=== PATIENT | male | born 1960 | race Two or more races ===

== ENCOUNTER 2020-08-28 08:12 | Emergency (ER) | payer MEDICARE, MEDICAID, SELFPAY ==
[2020-08-28 08:27] VITALS: BP 168/95; PULSE 68; RESP 14; TEMP 36.6; O2SAT 96; BMI 21.6
--- NOTE | 2020-08-28 08:40 | CT_ITS ---
EXAMINATION: CT HEAD WITHOUT CONTRAST CT CERVICAL SPINE WITHOUT CONTRAST CLINICAL INFORMATION: Fall. Pain. COMPARISON: None. TECHNIQUE: Multidetector CT imaging of the head and cervical spine was performed without the use of intravenous contrast. Multiplanar reformats are reviewed. DLP: 1031 mGy-cm. FINDINGS: There is no evidence of acute intracranial hemorrhage or territorial infarction. No abnormal mass effect or midline shift is seen. Lezama to white matter differentiation is well preserved. No extra-axial fluid collections are identified. The ventricles are normal in size. There is no abnormal attenuation within the brain parenchyma. Mild left parietal scalp swelling. Minimal secretions present within the mastoid air cells bilaterally. Atlantooccipital alignment is maintained. No acute fracture or subluxation. Vertebral body heights maintained. 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 The cervicomedullary junction and spinal cord are grossly unremarkable. The paraspinal soft tissues are unremarkable. The imaged lung apices are clear CT/CT head/brain wo con IMPRESSION: No acute intracranial pathology. No cervical spine fracture or subluxation.
--- NOTE | 2020-08-28 08:40 | CT_ITS ---
EXAMINATION: CT HEAD WITHOUT CONTRAST CT CERVICAL SPINE WITHOUT CONTRAST CLINICAL INFORMATION: Fall. Pain. COMPARISON: None. TECHNIQUE: Multidetector CT imaging of the head and cervical spine was performed without the use of intravenous contrast. Multiplanar reformats are reviewed. DLP: 1031 mGy-cm. FINDINGS: There is no evidence of acute intracranial hemorrhage or territorial infarction. No abnormal mass effect or midline shift is seen. Lezama to white matter differentiation is well preserved. No extra-axial fluid collections are identified. The ventricles are normal in size. There is no abnormal attenuation within the brain parenchyma. Mild left parietal scalp swelling. Minimal secretions present within the mastoid air cells bilaterally. Atlantooccipital alignment is maintained. No acute fracture or subluxation. Vertebral body heights maintained. 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 The cervicomedullary junction and spinal cord are grossly unremarkable. The paraspinal soft tissues are unremarkable. The imaged lung apices are clear CT/CT cervical spine wo con IMPRESSION: No acute intracranial pathology. No cervical spine fracture or subluxation.
--- NOTE | 2020-08-28 08:52 | ED.FALL ---
HPI - Fall General Chief Complaint: Fall Stated Complaint: FALL HEAD INJ Time Seen by Provider: 08/28/20 08:32 Source: patient Mode of arrival: ambulatory Limitations: no limitations History of Present Illness HPI Narrative: Slip and fall yesterday on the ice. Fall backwards hitting his head. ?brief LOC. Rouses on own and able to get up. Last night mild SERRANO. This morning continued SERRANO, dizziness x2 with working. No photophobia, nausea, vomiting. Some neck and back pain. No chest/abdominal pain. MD complaint: fall Onset (ago): day(s) (yesterday ) Fall from: standing Fall witnessed: no Place fall occurred: home Loss of consciousness: yes, seconds Length of LOC: second(s) Prolonged down time: no Symptoms prior to fall: none Context: tripped/slipped Location of injury: head, neck and back Severity: mild Quality: sharp Associated symptoms (after fall): headache and neck pain Related Data Allergies Allergy/AdvReac Type Severity Reaction Status Date / Time No Known Allergies Allergy Unverified 07/14/20 15:41 [No Known Allergies*] Review of Systems Review of Systems: Yes all other systems are reviewed and are negative Constitutional: Constitutional: Reports no additional constitutional complaints, Denies body ache(s), Denies chills, Denies fever(s), Reports headache(s) and Denies weakness Eyes: Eyes: Reports no additional eye complaints and Denies change in vision ENT: Reports system reviewed and no additional complaints, except as documented, Reports dizziness, Reports headache(s), Denies nasal congestion, Denies nasal discharge and Reports neck pain Cardiovascular: Cardiovascular: Reports no additional cardiovascular complaints, Denies chest pain, Denies leg edema and Denies dyspnea Respiratory: Respiratory: Reports no additional respiratory complaints, Denies cough and Denies dyspnea Gastrointestinal: Gastrointestinal: Reports no additional gastrointestinal complaints, Denies abdominal pain, Denies diarrhea, Denies nausea and Denies vomiting Genitourinary: Genitourinary: Denies urinary incontinence Musculoskeletal: Musculoskeletal: Reports no additional musculoskeletal complaints, Reports back pain, Denies arthralgias, Denies joint swelling, Reports neck pain, Denies numbness and Denies tingling Integumentary/Breasts: Skin/Breast: Reports system reviewed and no additional complaints, except as docu and Denies rash Neurologic: Reports system reviewed and no additional complaints, except as documented, Denies Abnormal speech present, Reports dizziness, Reports headache(s), Denies numbness, Denies tingling and Denies weakness PMFSH Past Medical History Attestation statement: The following information was validated with the patient. Source: obtained from family and nursing notes reviewed Medical History Asthma Cardiac arrhythmia Hernia Neck pain Social History Social History Alcohol intake: unknown Smoking Status: Unknown if ever smoked Use of substances other than those prescribed or required for medical reasons: No Advance Directives: No Advance Directives Information Provided: No Physical Exam Vital Signs: Vital Signs: Vital Signs Temp Pulse Resp BP Pulse Ox 08/28/20 09:21 20 08/28/20 08:27 98 F 68 14 168/95 H 96 Body Mass Index 21.6 Const: General: cooperative, healthy appearing, comfortable and no acute distress Orientation/consciousness: patient oriented x3 Limitations: no limitations HENMT: Head: Yes normal to inspection Ears: hearing grossly normal bilaterally General nose exam: Normal external nose present Face and sinus: Yes normal facial exam Mouth: Normal oral and palatal mucosa present Throat: Yes posterior oropharynx normal Eyes: General: appearance normal, both eyes and all related structures Pupils: Equal, round and reactive pupils present Neck: Neck: Yes normal visual inspection, Yes full ROM, Yes no lymphadenopathy, Yes no meningeal signs, Yes trachea midline, Yes supple, No anterior neck swelling and Yes tender (lower cervical tenderness with no step offs or deformities ) Chest: Chest palpation & inspection: normal inspection of the chest Resp: Effort & Inspection: normal respiratory effort Auscultation: clear to auscultation bilaterally Cardio: Rate: regular rate Rhythm: regular rhythm Peripheral pulses: Peripheral pulses 2+ throughout GI: Inspection: Yes normal to inspection Palpation (GI): Soft to palpation and nontender Auscultation: normal bowel sounds Back/Spine/Pelvis: Thoracic/Lumbar Spine: thoracic and lumbar spine normal to inspection and paraspinal muscle tenderness (upper lumbar/lower thoracic ) bilaterally Skin: General skin exam: no rashes or lesions noted Neuro: General: patient oriented x3, no meningeal signs, no focal motor deficits and normal sensation to monofilament Cranial nerves: Yes CN's II-XII intact bilaterally, Yes Equal, round and reactive pupils present, Yes Bilaterally intact EOM present, Yes Nystagmus not present, Yes Normal facial strength present and Yes Midline tongue present Cognition (Neuro): normal cognition Speech: No Abnormal speech present Gait exam (Neuro): Normal gait present Motor exam (neuro): 5/5 motor strength present throughout Sensory Exam: Normal double simultaneous stimulation for sensation Coordination: [id number] test normal, [id number] test normal and tandem gait normal Extrem: General: Yes normal to inspection Course Course Course Narrative: 60 yo male here with SERRANO, dizziness, neck and back pain s/p mechanical fall yesterday. Neuro intact, stable vital signs. Will check imaging head/neck. 09-Imaging unremarkable. Likely mild concussion. Reviewed concussion care at home. Reviewed worrisome signs and symptoms when to return to the emergency department. Comfortable is discharged home. MDM - Fall MDM Narrative Medical decision making narrative: cervical strain vs fracture, head contusion, ICH, concussion Imaging Data Ct head/neck: Radiologist's impression: EXAMINATION: CT HEAD WITHOUT CONTRAST CT CERVICAL SPINE WITHOUT CONTRAST CLINICAL INFORMATION: Fall. Pain. COMPARISON: None. TECHNIQUE: Multidetector CT imaging of the head and cervical spine was performed without the use of intravenous contrast. Multiplanar reformats are reviewed. DLP: 1031 mGy-cm. FINDINGS: There is no evidence of acute intracranial hemorrhage or territorial infarction. No abnormal mass effect or midline shift is seen. Lezama to white matter differentiation is well preserved. No extra-axial fluid collections are identified. The ventricles are normal in size. There is no abnormal attenuation within the brain parenchyma. Mild left parietal scalp swelling. Minimal secretions present within the mastoid air cells bilaterally. Atlantooccipital alignment is maintained. No acute fracture or subluxation. Vertebral body heights maintained. 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 The cervicomedullary junction and spinal cord are grossly unremarkable. The paraspinal soft tissues are unremarkable. The imaged lung apices are clear CT/CT cervical spine wo con IMPRESSION: No acute intracranial pathology. No cervical spine fracture or subluxation. Discharge Plan Discharge Clinical Impression: Cervical strain, Lumbar strain Concussion with loss of consciousness Qualifiers: Encounter type: initial encounter Qualified Code(s): S06.0X9A - Concussion with loss of consciousness of unspecified duration, initial encounter Patient Disposition: Home, Self-Care Instructions: Concussion (ED) Additional Instructions: Cold, dark room Limit screen time If no improvement in a few days please follow-up with Dr Thomas Referrals: Thomas Thomas MD [Primary Care Provider] - 2 days Stand Alone Forms: Work/School Release Interventions: ED Discharge Assessment Last Done: 08/28/20 10:14 Discharge Date/Time: 08/28/20 10:14
[2020-08-28 09:21] VITALS: RESP 20
== END 2020-08-28 10:14 | disposition home or self-care (01) ==
PROVIDERS: Emergency Provider Emergency Medicine; PCP Internal Medicine
DX: S06.0X1A Concussion with loss of consciousness of 30 minutes or less, initial encounter (principal); S16.1XXA Strain of muscle, fascia and tendon at neck level, initial encounter; S39.012A Strain of muscle, fascia and tendon of lower back, initial encounter; M54.2 Cervicalgia; W01.0XXA Fall on same level from slipping, tripping and stumbling without subsequent striking against object, initial encounter; Y93.9 Activity, unspecified; Y92.009 Unspecified place in unspecified non-institutional (private) residence as the place of occurrence of the external cause; Y99.9 Unspecified external cause status
CPT/HCPCS: 70450; 72125; 99284

== ENCOUNTER 2020-08-28 11:47 | Emergency (ER) | payer MEDICARE, MEDICAID, SELFPAY ==
[2020-08-28 12:00] VITALS: BP 144/79; PULSE 64; RESP 17; TEMP 36.5; O2SAT 95; BMI 23.3
--- NOTE | 2020-08-28 13:09 | ED.GENADULT ---
HPI - General Adult General Chief complaint: General Medical Stated complaint: tick bite Time Seen by Provider: 08/28/20 12:18 Source: patient Mode of arrival: ambulatory Limitations: no limitations History of Present Illness HPI narrative: patient presents to the ED for his found a tick bite on his back. Patient denies any fever, chills, headache, body aches, nausea, diarrhea, or vomiting. Related Data Allergies Allergy/AdvReac Type Severity Reaction Status Date / Time No Known Allergies Allergy Verified 08/28/20 12:03 [No Known Allergies*] Review of Systems Review of Systems: Yes all other systems are reviewed and are negative Constitutional: Constitutional: Reports as per HPI and Reports no additional constitutional complaints Eyes: Eyes: Reports as per HPI and Reports no additional eye complaints ENT: Reports system reviewed and no additional complaints, except as documented and Reports as per HPI Cardiovascular: Cardiovascular: Reports as per HPI and Reports no additional cardiovascular complaints Respiratory: Respiratory: Reports as per HPI and Reports no additional respiratory complaints Gastrointestinal: Gastrointestinal: Reports as per HPI and Reports no additional gastrointestinal complaints Genitourinary: Genitourinary: Reports no additional male genitourinary complaints and Reports as per HPI Musculoskeletal: Musculoskeletal: Reports no additional musculoskeletal complaints and Reports as per HPI Neurologic: Reports system reviewed and no additional complaints, except as documented and Reports as per HPI Psychiatric: Psychiatric: Reports no additional psychiatric complaints and Reports as per HPI PMF Past Medical History Medical History Asthma Cardiac arrhythmia Hernia Neck pain Social History Social History Alcohol intake: unknown Smoking Status: Unknown if ever smoked Advance Directives: No Advance Directives Information Provided: No Physical Exam Vital Signs: Vital Signs: Vital Signs Temp Pulse Resp BP Pulse Ox 08/28/20 12:00 97.7 F 64 17 144/79 H 95 Body Mass Index 23.3 Const: General: cooperative, healthy appearing, comfortable, no acute distress, well developed and alert Orientation/consciousness: oriented to person, oriented to place, oriented to time and patient oriented x3 HENMT: Head: Yes normal to inspection and Yes No palpable skull fracture present Eyes: General: appearance normal, both eyes and all related structures Neck: Neck: Yes normal visual inspection, Yes full ROM, Yes no lymphadenopathy and Yes no meningeal signs Chest: Chest palpation & inspection: normal inspection of the chest, normal palpation of entire chest wall and no localized rib tenderness Resp: Effort & Inspection: normal respiratory effort and able to speak in complete sentences Cardio: Jugular venous distension: no JVD Heart sounds: S1 normal heart sound present and S2 normal heart sound present GI: Inspection: Yes normal to inspection and No abdominal wall ecchymosis Percussion: Yes normal to percussion Auscultation: normal bowel sounds : General: No CVA tenderness and Yes no CVA tenderness Back/Spine/Pelvis: Other: Right upper back positive for small area of erythema with point of entry. Negative for any fluctuance or tenderness. Back: no CVA tenderness, No CVA tenderness and No back tenderness Skin: Other: Upper back positive for slight erythema less than the size of a nickel with point of entry Neuro: General: oriented to person, oriented to place, oriented to time, patient oriented x3, gait normal, no meningeal signs and CN's II-XI intact bilaterally Cranial nerves: Yes CN's II-XII intact bilaterally Extrem: General: Yes normal to inspection and Yes full ROM Psych: Appearance: grossly normal, well kempt and not disheveled Course Course Course Narrative: patient showed tick in plastic bag. Reevaluation(s) Reevaluation #1: Patient given 1 dose of doxycycline 200 mg prophylactic due to patient being exposed to tick Time: 13:11 Medical Decision Making [facility] Narrative Medical decision making narrative: tick bite Discharge Plan Discharge Clinical Impression: Tick bite Patient Disposition: Home, Self-Care Instructions: Tick Bite (ED) Additional Instructions: return to the ED immediately for fever, chills, worsening rash, nausea, vomiting, headache, dizziness, or any other concerning symptoms. Referrals: Thomas Thomas MD [Primary Care Provider] - 2 days ( Tick bite. Doxycycline prophylaxis given) Interventions: ED Discharge Assessment Last Done: 08/28/20 13:23 Discharge Date/Time: 08/28/20 13:24 Print Language: Surinamese
== END 2020-08-28 13:24 | disposition home or self-care (01) ==
PROVIDERS: Emergency Provider Emergency Medicine; PCP Internal Medicine
DX: T63.481A Toxic effect of venom of other arthropod, accidental (unintentional), initial encounter (principal); M54.5 Low back pain; M54.2 Cervicalgia; R51.9 Headache, unspecified; Y92.9 Unspecified place or not applicable
CPT/HCPCS: 70450; 72125; 99283; 99284

== ENCOUNTER 2020-08-31 14:54 | Outpatient (REF) | payer MEDICARE, MEDICAID, SELFPAY ==
[2020-08-31 16:20] LABS: Alanine Aminotransferase 32 U/L (0-40); Albumin Level 4.2 g/dL (3.5-5.0); Alkaline Phosphatase 71 U/L (39-117); Anion Gap 11 (12-20); Aspartate Amino Transferase 30 U/L (5-37); Bilirubin Total 0.8 mg/dL (0.0-1.0); Blood Urea Nitrogen 25 mg/dL (9-16); C Reactive Protein 0.04 mg/dL (< or = 0.50); Calcium 8.9 mg/dL (8.4-10.2); Carbon Dioxide 26 mmol/L (22-29); Chloride 108 mmol/L (96-108); Estimated Glomerular Filt Rate > 60; Glucose Random 88 mg/dL (60-115); Potassium 4.3 mmol/l (3.3-5.1); Sodium 141 mmol/L (135-145); Total Protein 6.9 g/dL (6.5-8.0)
[2020-09-01 08:32] LABS: Lyme Abs Screen <0.90 index
== END 2020-08-31 14:55 | disposition home or self-care (01) ==
LOC: HO.LAB 14:54
PROVIDERS: PCP Internal Medicine; Visit Provider Internal Medicine
DX: R55 Syncope and collapse (principal); T14.8XXA Other injury of unspecified body region, initial encounter; S06.0X9A Concussion with loss of consciousness of unspecified duration, initial encounter
CPT/HCPCS: 80053; 82550; 86140; 86618

== ENCOUNTER 2020-09-13 08:00 | Outpatient (REF) | payer MEDICARE, MEDICAID, SELFPAY ==
--- NOTE | 2020-09-13 08:05 | EEG_ITS ---
The waking background activity consists of low voltage fast frequencies seen diffusely, intermixed with beta frequencies anteriorly and low voltage 11 hertz posterior alpha. Photic stimulation is without activation. Hyperventilation was omitted. No sleep stages are identified. IMPRESSION: This waking EEG is within normal limits. MD JOHNNY Kincaid/TONA / [phone]
== END 2020-09-13 08:01 | disposition home or self-care (01) ==
LOC: HO.NEURO 08:00
PROVIDERS: Visit Provider Internal Medicine
DX: S06.0X0A Concussion without loss of consciousness, initial encounter (principal); X58.XXXA Exposure to other specified factors, initial encounter; Y93.9 Activity, unspecified; Y92.9 Unspecified place or not applicable; Y99.8 Other external cause status; R55 Syncope and collapse
CPT/HCPCS: 95816

== ENCOUNTER 2020-10-24 16:56 | Emergency (ER) | payer MEDICARE, MEDICAID, SELFPAY ==
[2020-10-24 18:10] VITALS: BP 98/68; PULSE 56; RESP 16; TEMP 36.3; O2SAT 95; BMI 21.6
--- NOTE | 2020-10-24 18:12 | XR_ITS ---
EXAMINATION: XR KNEE, RIGHT CLINICAL INFORMATION: Pain. COMPARISON: None TECHNIQUE: Four views of the right knee. FINDINGS: Bones and soft tissues are normal. No fracture or joint effusion. Alignment is anatomic. Joint spaces are well maintained. No abnormal soft tissue calcification. XR/XR knee RT 4V IMPRESSION: Unremarkable right knee exam.
--- NOTE | 2020-10-24 18:43 | ED.LOWEXIN ---
HPI - Extremity Injury (Lower) General Chief Complaint: Extremity Problem Stated Complaint: knee pain Time Seen by Provider: 10/24/20 18:12 History of Present Illness HPI Narrative: Patient complains of right knee pain for 1 day, denies any injury, denies fever denies redness denies swelling denies calf pain, pain is mild and has been going on for 1 day Related Data Allergies Allergy/AdvReac Type Severity Reaction Status Date / Time No Known Allergies Allergy Verified 10/24/20 18:17 [No Known Allergies*] Review of Systems Review of Systems: Positive for right knee pain Negative for fever chills redness swelling calf pain, leg swelling, shortness of breath, chest pain difficulty breathing dizziness skin rash Yes all other systems are reviewed and are negative PMFSH Past Medical History Source: nursing notes reviewed Medical History Asthma Cardiac arrhythmia Hernia Neck pain Social History Social History Alcohol intake: unknown Smoking Status: Former smoker Use of substances other than those prescribed or required for medical reasons: No Advance Directives: No Advance Directives Information Provided: Yes Physical Exam Vital Signs: Vital Signs: Last Vital Signs Temp 97.4 F 10/24/20 18:10 Pulse 56 10/24/20 18:10 Resp 16 10/24/20 18:10 BP 98/68 10/24/20 18:10 Pulse Ox 95 10/24/20 18:10 Body Mass Index 21.6 Patient A&O x3, no acute distress, walks with a limp Head is normocephalic atraumatic Neck is supple Respiratory no distress Skin no rash Extremities the right knee had medial tenderness, there is no redness no warmth no effusion no swelling, skin is intact, there is a good range of motion with extension to 180, normal straight leg raise, pain with flexion and it flexes past 90, there is tenderness on the medial aspect of the knee Neurovascular intact distal There is no edema there is no calf tenderness or swelling, there is no posterior tenderness Neuro no focal deficit Course Course Course Narrative: X-ray was normal of the right knee, patient was discharged to follow with the with orthopedics as needed Discharge Plan Discharge Clinical Impression: Arthralgia of right knee Patient Disposition: Home, Self-Care Additional Instructions: Follow with orthopedist for further evaluation Return any time any worse condition or any concerns Referrals: Odell Barbosa MD [Physician] - 2 days (Right knee pain) Interventions: ED Discharge Assessment Last Done: 10/24/20 18:58 Discharge Date/Time: 10/24/20 19:00
== END 2020-10-24 19:00 | disposition home or self-care (01) ==
PROVIDERS: Emergency Provider Emergency Medicine; PCP Internal Medicine
DX: M25.561 Pain in right knee (principal); Z87.891 Personal history of nicotine dependence
CPT/HCPCS: 73564; 99283

== ENCOUNTER 2020-12-20 13:39 | Outpatient (REF) | payer MEDICARE, MEDICAID, SELFPAY ==
[2020-12-20 14:29] LABS: MANUAL DIFF FLAG NO
[2020-12-20 14:33] LABS: Basophils Absolute Auto 0.1 X10*3/uL (0.0-0.2); Basophils Percent Auto 0.8 % (0-2); Eosinophils Absolute Auto 0.1 X10*3/uL (0.0-0.4); Eosinophils Percent Auto 1.5 % (0-4); Hematocrit 47.3 % (42-52); Hemoglobin 16.3 g/dl (14.0-18.0); Imm Gran Abs Auto 0.01 X10*3/uL (0.00-0.03); Imm Gran Pct Auto 0.2 % (0.0-0.4); Lymphocytes Absolute Auto 1.7 X10*3/uL (1.2-4.9); Lymphocytes Percent Auto 28.6 % (20-40); Mean Corpuscular HGB Conc 34.5 g/dl (31.0-36.0); Mean Corpuscular Hemoglobin 31.7 pg (27.0-33.0); Mean Platelet Volume 9.7 fL (9.4-12.4); Monocytes Absolute Auto 0.7 X10*3/uL (0.1-1.2); Monocytes Percent Auto 12.2 % (2-11); Neutrophils Absolute Auto 3.5 X10*3/uL (2.0-8.3); Neutrophils Percent Auto 56.7 % (45-73); Platelet Count 225 X10*3/uL (160-400); Red Blood Count 5.14 X10*6/uL (4.60-5.80); Red Cell Distribution Width 12.8 % (11.0-16.0); White Blood Count 6.1 X10*3/uL (4.8-10.8)
[2020-12-20 14:42] LABS: INTERNATIONAL NORM RATIO 1.1 (0.9-1.1); Prothrombin Time 12.9 SEC (10.8-13.0)
[2020-12-20 14:54] LABS: Alanine Aminotransferase 34 U/L (0-40); Albumin Level 4.5 g/dL (3.5-5.0); Alkaline Phosphatase 77 U/L (39-117); Aspartate Amino Transferase 54 U/L (5-37); Bilirubin Direct 0.4 mg/dL (0.0-0.5); Total Protein 7.1 g/dL (6.5-8.0)
[2020-12-28 12:21] LABS: HepC Viral Load <15 NOT DETECTED
[2020-12-28 12:22] LABS: HCV Log PCR <1.18 NOT DETECTED
== END 2020-12-20 13:40 | disposition home or self-care (01) ==
LOC: HO.LAB 13:39
PROVIDERS: PCP Internal Medicine; Visit Provider Internal Medicine
DX: B18.2 Chronic viral hepatitis C (principal)
CPT/HCPCS: 36415; 80076; 82105; 85025; 85610; 87522

== ENCOUNTER 2020-12-29 07:28 | Outpatient (REF) | payer MEDICARE, MEDICAID, SELFPAY ==
--- NOTE | ~2020-12-29 | US_ITS ---
EXAMINATION: US ABDOMEN COMPLETE CLINICAL INFORMATION: Chronic hepatitis C. COMPARISON: None. TECHNIQUE: Real-time imaging of the abdominal viscera. FINDINGS: PANCREAS: The pancreas is homogeneous echotexture. There is a small prominent pancreatic duct measuring 0.2 cm. ABDOMINAL AORTA: The proximal, mid, and distal segments are normal in caliber. INFERIOR VENA CAVA: Visualized portions are normal. LIVER: The liver is normal in size. The liver contour is normal. Parenchymal echogenicity is heterogeneous. No focal hepatic lesion. There is no intrahepatic biliary duct dilatation seen. GALLBLADDER: Normal. The gallbladder is physiologically distended without evidence of stones, sludge, polyps, wall thickening or pericholecystic fluid. COMMON BILE DUCT: Normal in caliber measuring 0.5 cm in diameter. RIGHT KIDNEY: Normal. No hydronephrosis. No renal calculi or focal parenchymal lesions. The kidney measures 11.0 cm in maximum dimension. LEFT KIDNEY: Normal. No hydronephrosis. No renal calculi or focal parenchymal lesions. The kidney measures 10.6 cm in maximum dimension. SPLEEN: Normal. The spleen measures 9.6 cm in maximum dimension. FREE FLUID: None. US/US abdomen complete IMPRESSION: Heterogenous liver without focal lesion. The rest of the abdominal ultrasound is unremarkable.
== END 2020-12-29 07:29 | disposition home or self-care (01) ==
LOC: HO.US 07:28
PROVIDERS: Visit Provider Internal Medicine
DX: B18.2 Chronic viral hepatitis C (principal)
CPT/HCPCS: 76700

== ENCOUNTER → 2021-02-23 08:41 | Outpatient (BNVA) | payer MEDICARE, MEDICAID, SELFPAY | PROVIDERS: PCP Internal Medicine; Visit Provider Internal Medicine | DX: I42.8 Other cardiomyopathies (principal); I49.8 Other specified cardiac arrhythmias; Z79.899 Other long term (current) drug therapy; Z87.891 Personal history of nicotine dependence | CPT/HCPCS: 93005; 99212 ==

== ENCOUNTER 2021-03-05 10:56 | Emergency (ER) | payer MEDICARE, MEDICAID, SELFPAY ==
--- NOTE | ~2021-03-05 | US_ITS ---
EXAMINATION: US SCROTUM CLINICAL INFORMATION: Left testicular pain. Rule out torsion. COMPARISON: None. TECHNIQUE: A sonogram of the scrotum was performed assessing marks-scale appearance and color Doppler flow. Spectral Doppler analysis of the arterial and venous flow were performed in the testes bilaterally. FINDINGS: RIGHT: Right testicle measures 4.7 x 1.8 x 3.2 cm, volume 14.2 mL. No focal testicular parenchymal lesions are visualized. Spectral Doppler analysis of the arterial and venous flow is normal in the right testis. Right epididymal head is normal in size. There is complex right cystic area in the epididymal tail just distal to a small echogenic calcification. The complex cystic area measures 2.5 x 1.2 x 1.5 cm. The calcification measures 0.2 x 0.2 x 0.2 cm. No right hydrocele or varicocele is seen. Right epididymal Doppler flow is normal. LEFT: Left testicle measures 4.4 x 1.8 x 2.9 cm, volume 11.8 mL. No focal testicular parenchymal lesions are visualized. Mild heterogeneity likely from old trauma. Spectral Doppler analysis of the arterial and venous flow is normal in the left testis. Left epididymal head is normal in size. There is epididymal head anechoic cyst measuring 0.9 x 0.4 x 0.8 cm. No left hydrocele seen. There is a small left varicocele seen. Left epididymal Doppler flow is normal. There is a left inguinal hernia compressing the left groin. US/US scrotum doppler IMPRESSION: Complex cystic lesion in the tail of the epididymis with an echogenic calcification just proximal. The testes and epididymis are unremarkable except for mild heterogeneity left testes likely from old trauma. No focal lesion seen. Normal arterial and venous Doppler flow seen to both testes and epididymis There is a small left varicocele and left epididymal head cyst. Suspect small inguinal hernia in left groin.
--- NOTE | ~2021-03-05 | CT_ITS ---
EXAMINATION: CT ABDOMEN AND PELVIS WITH CONTRAST CLINICAL INFORMATION: Left groin pain. Rule out incarcerated hernia. COMPARISON: CT abdomen 01/12/2019. TECHNIQUE: Multidetector volumetric images were obtained from the superior aspect of the liver through the pubic symphysis following administration 85 mL of Omnipaque 350 intravenous contrast. Sagittal and coronal reformatted images were obtained on the technologist's workstation. Oral contrast: No. This CT examination was performed using dose optimization techniques as appropriate, variously including the following: *Automated exposure control. *Adjustment of mA and/or kV according to patient size (this includes techniques or standardized protocols for targeted exams where dose is matched to indication/reason for exam; i.e. extremities or head). *Use of iterative reconstruction technique. DLP: 228 mGy-cm. FINDINGS: LUNG BASES: Mild right basilar atelectasis. LIVER, GALLBLADDER, AND BILIARY TREE: The liver is normal in size, shape, and attenuation. No focal hepatic lesion or biliary ductal dilatation is present. The gallbladder is partially distended with no evidence of radiopaque gallstones, gallbladder wall thickening, or obvious pericholecystic inflammatory changes. PANCREAS: Unremarkable. SPLEEN: Unremarkable. ADRENAL GLANDS: Unremarkable. KIDNEYS AND URETERS: The kidneys are normal in size, shape, and attenuation. No hydronephrosis, hydroureter, or calculi seen. No perinephric stranding. BLADDER: Unremarkable. GASTROINTESTINAL TRACT: The small and large bowel are unremarkable. Nonobstructive bowel gas pattern. The appendix is unremarkable. No free fluid or free air. ABDOMINAL WALL: No significant hernia is appreciated. LYMPH NODES: No lymphadenopathy seen. VASCULAR: Normal caliber aorta. PELVIC VISCERA: Prostate and seminal vesicles appear unremarkable. OSSEOUS STRUCTURES: Multilevel degenerative changes in the spine. No acute or suspicious osseous abnormality seen. CT/CT abdomen pelvis w con IMPRESSION: 1. No acute findings identified in the abdomen or pelvis. 2. Nonobstructive bowel gas pattern.
[2021-03-05 11:03] VITALS: BP 113/76; PULSE 69; RESP 18; TEMP 37.1; O2SAT 96; BMI 20.7
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
[2021-03-05 13:50] VITALS: BP 125/73; PULSE 60; RESP 18; TEMP 37.1; O2SAT 96
[2021-03-05 15:19] VITALS: BP 147/79; PULSE 55; RESP 16; O2SAT 98
[2021-03-05] MEDS: iohexoL 350 MG/ML 100 ML INFUS..BTL IV (15:27)
[2021-03-05 15:36] VITALS: BP 135/81; PULSE 56; RESP 16; TEMP 37; O2SAT 97
== END 2021-03-05 17:04 | disposition home or self-care (01) ==
PROVIDERS: Emergency Provider Emergency Medicine Emergency Medical Services; PCP Internal Medicine
DX: K40.90 Unilateral inguinal hernia, without obstruction or gangrene, not specified as recurrent (principal); N45.1 Epididymitis; N50.812 Left testicular pain; R10.30 Lower abdominal pain, unspecified; Z79.899 Other long term (current) drug therapy; Z87.891 Personal history of nicotine dependence
CPT/HCPCS: 74177; 76870; 93975; 99284; Q9967

== ENCOUNTER 2021-03-08 15:42 | Emergency (ER) | payer OTHER, SELFPAY ==
[2021-03-08 16:34] VITALS: BP 136/82; PULSE 58; RESP 20; TEMP 37; O2SAT 98; BMI 45.5
--- NOTE | 2021-03-08 19:05 | ED_ITS ---
HPI - Male Genitourinary General Chief complaint: Urogenital-Male Stated complaint: groin pain - work Time Seen by Provider: 03/08/21 19:05 Source: patient Mode of arrival: ambulatory Limitations: no limitations History of Present Illness HPI Narrative: Patient with chronic back and neck problems on muscle relaxants was seen here on 03/05 for increased pain in left groin area after lifting boxes at work CT scan was done which which was negative for any hernia. Ultrasound of groin area showed small left inguinal hernia without any bowel loop and small left varicocele patient comes back now because of increased pain for last 24 hour oxycodone is not working no nausea no vomiting patient moving normal bowels Related Data Home Medications Medication Instructions Recorded Confirmed albuterol sulfate 90 mcg/actuation 2 puff PO PRN 02/23/21 02/23/21 aerosol inhaler diazepam 5 mg tablet 5 mg PO BID PRN 02/23/21 02/23/21 oxycodone 5 mg tablet 5 mg PO TID PRN 02/23/21 02/23/21 Previous Rx's Medication Instructions Recorded amiodarone 200 mg tablet 200 mg PO DAILY #60 tab 02/23/21 oxycodone 5 mg PO Q4H PRN #14 tab 03/05/21 oxycodone 5 mg PO Q4H PRN #14 tab 03/05/21 Allergies Allergy/AdvReac Type Severity Reaction Status Date / Time No Known Allergies Allergy Verified 10/24/20 18:17 [No Known Allergies*] Review of Systems Review of Systems: Constitutional : No Weight loss, No Fever, No Chills ENT/Mouth : No sore throat, No Rhinorrhea Eyes: No Eye Pain, No Swelling Cardiovascular : No Chest Pain, no palpitations Respiratory : No Cough, No Sputum, no shortness of breath Gastrointestinal : no Nausea, No Vomiting, No Diarrhea, No abdominal Pain, no black stools Genitourinary : No Dysuria, No Urinary Frequency Musculoskeletal : No joint pain, No Myalgias, No Joint Swelling Skin : No Skin Lesions, No rash Neuro : No Weakness, No Numbness, No Dizziness, No Headache Psych : No Anxiety/Panic, No Depression Heme/Lymph: No Bruising, No Lymphadenopathy Endocrine : No Polyuria, No Polydipsia All other systems reviewed and are negative PMFSH Past Medical History Medical History Asthma Atrial arrhythmia Cardiac arrhythmia Hernia Neck pain NICM (nonischemic cardiomyopathy) Surgical History History of bladder surgery History of hernia repair History of testicular surgery Family History Family History Father Unknown family medical history Mother No problems noted. Social History Social History Alcohol intake: unknown Smoking Status: Former smoker Advance Directives: No Advance Directives Information Provided: No Physical Exam Vital Signs: Vital Signs: Last Vital Signs Temp 98.7 F 03/08/21 19:39 Pulse 62 03/08/21 19:39 Resp 18 03/08/21 19:39 BP 136/80 03/08/21 19:39 Pulse Ox 97 03/08/21 19:39 Body Mass Index 45.5 Const: General: comfortable and no acute distress Orie ntation/consciousness: patient oriented x3 HENMT: Head: Yes normal to inspection and Yes normocephalic Eyes: General: appearance normal, both eyes and all related structures Neck: Neck: Yes normal visual inspection Chest: Chest palpation & inspection: normal inspection of the chest and normal palpation of entire chest wall Resp: Effort & Inspection: normal respiratory effort Auscultation: clear to auscultation bilaterally Cardio: Palpation: normal PMI Rate: regular rate Rhythm: regular rhythm Heart sounds: S1 normal heart sound present and S2 normal heart sound present Peripheral pulses: Peripheral pulses 2+ throughout GI: Inspection: Yes normal to inspection Palpation (GI): Soft to palpation and nontender Auscultation: normal bowel sounds : General: Yes no CVA tenderness Male General Exam: Yes hernia (Small fat containing hernia in left groin area) Testes: Testes normal, epididymides normal, no epidiymal tenderness and no testicular swelling Back/Spine/Pelvis: Back: no CVA tenderness Skin: General skin exam: no rashes or lesions noted Neuro: General: patient oriented x3 Discharge Plan Discharge Clinical Impression: Recurrent simple left inguinal hernia Patient Disposition: Home, Self-Care Instructions: Inguinal Hernia (ED) Additional Instructions: You possibly have small fat containing left inguinal hernia as seen in ultrasound but not in CT scan. Continue pain medication as prescribed. Avoid straining Follow up with surgeon Prescriptions: No Action oxycodone 5 mg tablet 5 mg PO Q4H PRN (Reason: pain) Qty: 14 RF: 0 oxycodone 5 mg tablet 5 mg PO Q4H PRN (Reason: pain) Qty: 14 RF: 0 diazepam 5 mg tablet 5 mg PO BID PRNRF: 0 oxycodone 5 mg tablet 5 mg PO TID PRNRF: 0 albuterol sulfate 90 mcg/actuation HFA aerosol inhaler 2 puff PO PRNRF: 0 amiodarone 200 mg tablet 200 mg PO DAILY Qty: 60 RF: 0 Referrals: Thomas Randolph MD [Physician] - 1 week Interventions: ED Discharge Assessment Last Done: 03/08/21 20:00 Discharge Date/Time: 03/08/21 20:00
[2021-03-08 19:39] VITALS: BP 136/80; PULSE 62; RESP 18; TEMP 37.1; O2SAT 97
[2021-03-08] MEDS: Ketorolac Tromethamine 60 MG/2 ML VIAL IM (19:52)
== END 2021-03-08 20:00 | disposition home or self-care (01) ==
PROVIDERS: Emergency Provider Internal Medicine; PCP Internal Medicine
DX: K40.91 Unilateral inguinal hernia, without obstruction or gangrene, recurrent (principal)
CPT/HCPCS: 96372; 99284; J1885

== ENCOUNTER → 2021-03-24 09:40 | Outpatient (BNVA) | payer OTHER, MEDICARE, MEDICAID, SELFPAY | PROVIDERS: PCP Internal Medicine; Visit Provider Surgery | DX: K40.90 Unilateral inguinal hernia, without obstruction or gangrene, not specified as recurrent (principal) | CPT/HCPCS: 99202 ==

== ENCOUNTER 2021-04-03 08:34 | Day surgery (SDC) | payer OTHER, MEDICARE, MEDICAID, SELFPAY ==
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
[2021-04-03] VITALS (9 sets, daily range): BP systolic 104–124; BP diastolic 56–70; PULSE 54–68; RESP 14–17; TEMP 36.3–36.4; O2SAT 96–99; BMI 20.7
[2021-04-03] MEDS: Lactated Ringers 1,000 ML 100 ML IVCONT (10:00)
--- NOTE | 2021-04-03 11:20 | MHC.SHP ---
Pre-Procedural Eval Section A The patient is an INPATIENT: No Changes since office visit: Yes Patient answered all questions; No Cold of Flu in the past 2 weeks, No New Medical Problems and No Changes in Medication The History & Physical has been completed within 30 days and I have reviewed it.: Yes Section B Chief Complaint: Left inguinal hernia Allergies: Allergies Allergy/AdvReac Type Severity Reaction Status Date / Time No Known Allergies Allergy Verified 10/24/20 18:17 [No Known Allergies*] Plan Diagnosis/Plan: Unchanged I have reviewed the history and physical and performed a pertinent physical examination on my patient. No changes have occurred unless specified.
--- NOTE | 2021-04-03 12:34 | W.PM.OPN ---
Operative Note Operative Note Date of Service: 04/03/21 Narrative: Preoperative diagnosis: Left inguinal hernia Postoperative diagnosis: Same Procedure: Repair of left inguinal hernia with mesh Surgeon: Dc Parekh MD Hostage Negotiator: No physician Anesthesia: General LMA Indications for procedure: 60-year-old male patient presenting with complaints of pain in lump in the left groin which increases with standing and lifting. On examination the patient is found to have a palpable left inguinal hernia which increases in size with Valsalva maneuvers. Is easily reducible with light pressure. Operative findings: Direct left inguinal hernia Specimen: None Estimated blood loss: 5 mL Complications: None Procedure details: Patient was brought to the OR and placed in a supine position. After administering general anesthesia the patient's abdomen was prepped with ChloraPrep and draped in a sterile fashion. A surgical time-out was called the consent confirmed. Patient received preoperative antibiotics and Venodyne boots were in place. Local anesthesia consisting of 0.25% Sensorcaine with epinephrine was then infiltrated over the left inguinal ligament. An incision was then created with a 15 blade carried out through subcutaneous tissue past Cash's fashion up to the external oblique aponeurosis. Additional local was infiltrated below the external oblique aponeurosis. Incision was then made with a scalpel wide with the Metzenbaum scissors. The spermatic cord was then dissected free from the inguinal canal and retracted using a Mahesh drain. A large size direct inguinal hernia was identified. Fibers of the cremasteric muscle were then and the cord explored. No indirect hernia sac could be identified. Attention was then directed to the floor of the inguinal canal. The internal oblique aponeurosis was then incised with electrocautery. This was then widened down below the transversalis and in the preperitoneal space entered. This was then widened using an open Ray-Mana sponge. A large PHS mesh was then obtained. The circular underlay was then placed in the preperitoneal space. The overlay was then deployed through the inguinal canal. This was secured to the pubic tubercle, conjoined tendon, shelving edge of the inguinal ligament using a 0 Polysorb suture. A slit was made in the mesh the mesh wrapped around the spermatic cord at the internal ring. This was then secured to the shelving edge of the inguinal ligament using the 0 Polysorb suture. The internal ring was loose enough to allow the tip of an index finger to pass. Wounds were then irrigated with saline solution and suctioned dry. External oblique aponeurosis was then closed using a running 2 0 Polysorb suture. Cash's fascia and dermis were reapproximated using interrupted 3-0 Polysorb sutures. Skin was closed using a running subcuticular 4-0 Polysorb suture. Additional local was infiltrated into the skin and subcutaneous tissue at this time. Steri-Strips 2 x 2 gauze and Tegaderm were then applied. The patient tolerated the procedure well. Sponge, instrument, needle counts reported as correct. The patient was transferred to PACU in stable condition.
[2021-04-03] MEDS: Acetaminophen 325 MG TABLET 650 MG PO (13:38)
[2021-04-03] MEDS: oxyCODONE HCl Immed Release 5 MG TABLET PO (13:38)
== END 2021-04-03 15:59 | disposition home or self-care (01) ==
PROVIDERS: PCP Internal Medicine; Visit Provider Surgery
PROC: (CPT 49505; principal; 2021-04-03 10:50)
DX: K40.90 Unilateral inguinal hernia, without obstruction or gangrene, not specified as recurrent (principal); J45.909 Unspecified asthma, uncomplicated; I42.8 Other cardiomyopathies; I49.9 Cardiac arrhythmia, unspecified; Z87.891 Personal history of nicotine dependence; Z79.899 Other long term (current) drug therapy
CPT/HCPCS: 49505; C1781; J0690; J1100; J2250; J2405; J3010

== ENCOUNTER → 2021-04-14 09:03 | Outpatient (BNVA) | payer OTHER, MEDICARE, MEDICAID, SELFPAY | PROVIDERS: PCP Internal Medicine; Referring Provider Internal Medicine; Visit Provider Surgery | DX: Z48.815 Encounter for surgical aftercare following surgery on the digestive system (principal) | CPT/HCPCS: 99212 ==

== ENCOUNTER → 2021-05-02 08:49 | Outpatient (BNVA) | payer MEDICARE, MEDICAID, SELFPAY | PROVIDERS: PCP Internal Medicine; Visit Provider Surgery | DX: Z48.815 Encounter for surgical aftercare following surgery on the digestive system (principal); Z87.19 Personal history of other diseases of the digestive system | CPT/HCPCS: 99212 ==

== ENCOUNTER 2021-05-25 14:27 | Outpatient (REF) | payer MEDICARE, MEDICAID, SELFPAY ==
[2021-05-25 16:41] LABS: Urine Cytology See Pathology rpt
== END 2021-05-25 14:28 | disposition home or self-care (01) ==
LOC: HO.LNP 14:27
PROVIDERS: PCP Internal Medicine; Visit Provider Urology
DX: C67.9 Malignant neoplasm of bladder, unspecified (principal)
CPT/HCPCS: 88112

== ENCOUNTER 2021-05-25 14:27 | Outpatient (AMB) | payer MEDICARE, MEDICAID, SELFPAY ==
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
[2021-05-25 15:07] VITALS: BP 122/78; TEMP 35.8; BMI 21.6
== END 2021-05-25 15:38 | disposition home or self-care (01) ==
LOC: HO.HUSH 14:27
PROVIDERS: PCP Internal Medicine; Visit Provider Urology
DX: C67.9 Malignant neoplasm of bladder, unspecified (principal); N50.3 Cyst of epididymis
CPT/HCPCS: 99499

== ENCOUNTER → 2021-06-02 08:54 | Outpatient (BNVA) | payer OTHER, MEDICARE, MEDICAID, SELFPAY | PROVIDERS: PCP Internal Medicine; Referring Provider Internal Medicine; Visit Provider Surgery | DX: Z48.815 Encounter for surgical aftercare following surgery on the digestive system (principal); Z87.19 Personal history of other diseases of the digestive system | CPT/HCPCS: 99212 ==

== ENCOUNTER → 2021-07-07 09:48 | Outpatient (BNVA) | payer OTHER, SELFPAY | PROVIDERS: PCP Internal Medicine; Referring Provider Internal Medicine; Visit Provider Surgery | DX: Z48.815 Encounter for surgical aftercare following surgery on the digestive system (principal); Z87.19 Personal history of other diseases of the digestive system | CPT/HCPCS: 99212 ==

== ENCOUNTER 2021-08-03 09:30 | Outpatient (REF) | payer MEDICARE, MEDICAID, SELFPAY ==
[2021-08-03 11:17] LABS: Blood Urea Nitrogen 16 mg/dL (9-16); Estimated Glomerular Filt Rate > 60
[2021-08-03 11:20] LABS: TSH reflex Free T4 1.54 uIU/mL (0.32-4.0)
== END 2021-08-03 09:31 | disposition home or self-care (01) ==
LOC: HO.LAB 09:30
PROVIDERS: Internal Medicine; PCP Internal Medicine; Visit Provider Surgery
DX: I49.1 Atrial premature depolarization (principal); I49.8 Other specified cardiac arrhythmias; I42.8 Other cardiomyopathies; K40.90 Unilateral inguinal hernia, without obstruction or gangrene, not specified as recurrent
CPT/HCPCS: 36415; 82565; 84443; 84520; 93005; 99212

== ENCOUNTER 2021-08-08 08:59 | Outpatient (REF) | payer MEDICARE, MEDICAID, SELFPAY ==
--- NOTE | ~2021-08-08 | CT_ITS ---
EXAMINATION: CT PELVIS WITH CONTRAST CLINICAL INFORMATION: Unilateral inguinal hernia without obstruction COMPARISON: Previous CT of the abdomen and pelvis most recent February 2021 TECHNIQUE: Helical scanning was performed with submillimeter collimation through the pelvis with the use of oral contrast and during bolus intravenous injection of 85 mL of Omnipaque 350 intravenous contrast. Sagittal and coronal multiplanar 2-D reconstructions were obtained. This CT examination was performed using dose optimization techniques as appropriate, variously including the following: *Automated exposure control *Adjustment of mA and/or kV according to patient size (this includes techniques or standardized protocols for targeted exams where dose is matched to indication/reason for exam; i.e. extremities or head) *Use of iterative reconstruction technique DLP: 266 mGy-cm FINDINGS: PELVIS: No hernia is seen. There is soft tissue thickening of the left inguinal ring. There is some stranding of the surrounding fat and small amount of adjacent fluid in the peritoneal cavity. Appearance is questionable for post surgical change. This is new from February 2021 exam. No generalized ascites or adenopathy is seen. The prostate gland is enlarged measuring 4.4 cm in AP and transverse dimension. The bladder is normal. There is mild diverticulosis of the colon. Visualized bowel is otherwise unremarkable. Vascular structures are unremarkable. OSSEOUS STRUCTURES: Unremarkable. CT/CT pelvis w con IMPRESSION: No hernia is seen. New thickening of the left inguinal ring and small amount of fluid in the adjacent peritoneal cavity. Mild diverticulosis of the colon. Slightly enlarged prostate gland.
[2021-08-08] MEDS: iohexoL 350 MG/ML 100 ML INFUS..BTL IV (10:23)
== END 2021-08-08 09:00 | disposition home or self-care (01) ==
LOC: HO.CT 08:59
PROVIDERS: Visit Provider Surgery
DX: K40.90 Unilateral inguinal hernia, without obstruction or gangrene, not specified as recurrent (principal)
CPT/HCPCS: 72193; Q9967

== ENCOUNTER → 2021-08-22 10:15 | Outpatient (BNVA) | payer OTHER, SELFPAY | PROVIDERS: PCP Internal Medicine; Referring Provider Internal Medicine; Visit Provider Surgery | DX: K40.90 Unilateral inguinal hernia, without obstruction or gangrene, not specified as recurrent (principal); R10.32 Left lower quadrant pain; I42.8 Other cardiomyopathies; I49.1 Atrial premature depolarization; Z87.891 Personal history of nicotine dependence; Z98.890 Other specified postprocedural states | CPT/HCPCS: 99212 ==

== ENCOUNTER → 2021-09-05 13:53 | Outpatient (REF) | payer OTHER, SELFPAY ==
--- NOTE | 2021-09-05 14:17 | HM_ITS ---
Total monitoring time 2 days and 23 hours. Underlying rhythm is sinus. Minimum heart rate 44/Min. Maximum 97/Min. Average 61/Min. No atrial fibrillation or flutter or AV blocks or pauses. Rare supraventricular ectopy with a burden of 0.02%. No ventricular ectopy noted. No patient events. MTDD
--- NOTE | 2021-09-05 14:17 | CA_ITS ---
Transthoracic Echocardiogram Patient (Last, First, Middle): vJ Lora A Gender: Male Date of : 1960 Age: 61 Procedure Date: 09/05/2021 Procedure Type: Transthoracic Echocardiogram Location: OP Height: 165.1 cm Weight: 56.7 kg BSA: 1.62 m2 Heart Rate: bpm BP: 100 / 60 mmHg Manager Research: ANABEL Referring MD: Chris Weldon MD Symptoms: I42.8 - Other cardiomyopathies Study Quality: Fair ECG Rhythm: Sinus Conclusions: - The left ventricular systolic function is low normal. The visually estimated ejection fraction is between 50-55%. - No obvious valvular pathology seen on this study. Findings Left Ventricle Normal left ventricular cavity size. There is normal left ventricular wall thickness. The left ventricular systolic function is low normal. The visually estimated ejection fraction is between 50-55%. There is no evidence of regional wall motion abnormalities. Diastolic function is normal for age. Right Ventricle Normal right ventricular cavity size and systolic function. Atria The left atrium is normal in size. The right atrium is normal in size. Aortic Valve The aortic valve was not well visualized. The aortic valve structure and function is likely normal. There is no aortic valve stenosis. There is no aortic valve regurgitation. Mitral Valve The mitral valve appears normal. There is trace mitral valve regurgitation. There is no mitral valve stenosis. Pulmonic Valve The pulmonic valve was not well visualized. Tricuspid Valve There is mild tricuspid valve regurgitation. The pulmonary artery systolic pressure is normal. Great Vessels The aorta was not well visualized. The aortic annulus is normal in size. Venous The inferior vena cava is normal in size and collapses greater than 50% with inspiration. Pericardium/Pleural There is no evidence of pericardial effusion. Prior Study Comparison Changes noted compared to prior study dated: 03/07/2020. LVEF improved. Recommendations, Care & Conclusions No obvious valvular pathology seen on this study. Measurements M-Mode Liner Measurements Normals - Women/Men IVSd: 1.01 0.6-0.9/0.6-1.0 cm LVIDd: 4.72 3.9-5.3/4.2-5.9 cm LVIDd Index: 2.91 1.9-3.2 cm/m2 LVIDs: 3.16 2.0-3.8 cm LVPWd: 1.03 0.6-0.9/0.6-1.0 cm LV Mass: 211.91 67-162/88-224g LV Mass Index: 130.81 43-95/49-115 g/m2 M-Mode Volumes LV EDV: 103.00 LV ESV: 39.70 2D Linear Measurements IVSd: 0.63 0.6-0.9/0.6-1.0 cm LVIDd: 5.10 3.9-5.3/4.2-5.9 cm LVIDd Index: 3.15 2.4-3.2/2.2-3.1 cm/m2 LVIDs: 3.39 2.0-3.6 cm LVPWd: 0.74 0.7-1.1 cm Ao Root: 2.70 2.1-3.5 cm LA Diam: 2.60 2.7-3.8/3.0-4.0 cm LAIDs Index: 1.60 1.5-2.3 cm/m2 LV Mass: 144.50 67-162/88-224 g LV Mass Index: 89.20 43-95/49-115 g/m2 LVOT Diam: 1.90 3.0+(-)1.3 cm 2D Systolic Function EF 2C: 64.50 >55% M-Mode Systolic Function FS: 33.10 27-47/25-43% LVEF: 61.50 >55% Mitral Valve MV Pk E: 0.79 MV PK A: 0.53 MV Decel Time: 237.00 E/A: 1.50 E'Lateral: 13.30 E'Medial: 7.18 E/E' Med: 11.00 E/E' Lat: 5.90 PHT: 70.00 MVA PHT: 3.14 Decel Ballard: 3.33 Aortic Valve AoV Pk Gurwinder: 1.29 AoV Pk Grad: 7.00 LVOT LVOT Pk Gurwinder: 1.11 LVOT Mn Gurwinder: 0.73 LVOT VTI: 0.25 LVOT Pk Grad: 5.00 LVOT Mn Grad: 3.00 LVOT Diam: 1.90 LVOT Area: 2.84 Diastolic Function MV Pk E: 0.79 MV Pk A: 0.53 E/A: 1.50 E'Medial: 7.18 E/E' Med: 11.00 E' Laterial: 13.30 E/E' Lat: 5.90 Right Ventricle TAPSE (mm): 2.34 Tricuspid Valve TR Pk Gurwinder: 2.34 TR Pk Grad: 22.00 RA Press: 3.00 RVSP: 25.00 Great Vessels Aorta Ao Root-2D: 2.70 2.0-3.7 cm Updated in Other Vendor System with Status of Final Chris Weldon MD electronically signed on 09/05/2021 4:30:32 PM with status of Final
== END ==
LOC: HO.CARD 13:53
PROVIDERS: PCP Internal Medicine; Visit Provider Internal Medicine
DX: I49.8 Other specified cardiac arrhythmias (principal); I42.8 Other cardiomyopathies
CPT/HCPCS: 93242; 93306

== ENCOUNTER 2021-09-06 06:36 | Day surgery (SDC) | payer OTHER, SELFPAY ==
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
[2021-09-06] VITALS (11 sets, daily range): BP systolic 113–137; BP diastolic 61–75; PULSE 51–73; RESP 12–18; TEMP 36.5–36.6; O2SAT 96–98; BMI 20.7
[2021-09-06 07:02] LABS: Hematocrit 44.5 % (42.0-52.0); Hemoglobin 15.2 g/dl (14.0-18.0); Mean Corpuscular HGB Conc 34.2 g/dl (31.0-36.0); Mean Corpuscular Volume 90.6 fL (80.0-98.0); Mean Platelet Volume 9.5 fL (9.4-12.4); Platelet Count 180 X10*3/uL (160-400); Red Blood Count 4.91 X10*6/uL (4.60-5.80); Red Cell Distribution Width 12.9 % (11.0-16.0); White Blood Count 5.1 X10*3/uL (4.8-10.8)
[2021-09-06] MEDS: Lactated Ringers 1,000 ML 100 ML IVCONT (07:14)
[2021-09-06 07:23] LABS: Alanine Aminotransferase 19 U/L (0-40); Albumin Level 4.2 g/dL (3.5-5.0); Alkaline Phosphatase 85 U/L (39-117); Anion Gap 9 (12-20); Aspartate Amino Transferase 25 U/L (5-37); Bilirubin Total 0.6 mg/dL (0.0-1.0); Blood Urea Nitrogen 15 mg/dL (9-16); Calcium 9.3 mg/dL (8.4-10.2); Carbon Dioxide 29 mmol/L (22-29); Chloride 107 mmol/L (96-108); Creatinine Clr Calc Pharmacy 61.9; Estimated Glomerular Filt Rate > 60; Glucose Fasting 96 mg/dL (60-99); Potassium 3.9 mmol/L (3.3-5.1); Sodium 141 mmol/L (135-145); Total Protein 6.7 g/dL (6.5-8.0)
--- NOTE | 2021-09-06 08:14 | MHC.SHP ---
Pre-Procedural Eval Section A Date of Service: 09/06/21 The patient is an INPATIENT: No Changes since office visit: Yes Patient answered all questions; No Cold of Flu in the past 2 weeks, No New Medical Problems and No Changes in Medication The History & Physical has been completed within 30 days and I have reviewed it.: Yes Section B Chief Complaint: Left inguinal hernia Allergies: Allergies Allergy/AdvReac Type Severity Reaction Status Date / Time No Known Allergies Allergy Verified 08/30/21 11:44 [No Known Allergies*] Plan Diagnosis/Plan: Unchanged I have reviewed the history and physical and performed a pertinent physical examination on my patient. No changes have occurred unless specified.
--- NOTE | 2021-09-06 09:55 | W.PM.OPN ---
Operative Note Operative Note Date of Service: 09/06/21 Narrative: Preoperative diagnosis: Left inguinal pain Postoperative diagnosis: Recurrent left inguinal hernia Procedure: Left inguinal exploration, repair of recurrent left inguinal hernia, neurolysis Surgeon: Dc Parekh MD Nursing Program Coordinator: Ilda Mendoza PA-C Anesthesia: General ET Indications for procedure: 61-year-old male patient status post repair of a left inguinal hernia presenting with persistent pain in the left groin. Patient evaluation revealed a palpable lump in the left groin with Valsalva maneuvers. CT of the pelvis indicated fluid around the hernia mesh but no definite hernia. Patient presents for a left inguinal exploration and possible mesh removal. Operative findings: Patient was found to have a well-incorporated mesh with no surrounding fluid to indicate an infection. An indirect hernia sac was identified. No disruption of the mesh could be identified. Nerve branch was identified within the scar tissue at the upper portion of the repair. This nerve was lysed. Specimen: Hernia sac Estimated blood loss: 5 mL Complications: None Procedure details: Patient was brought to the OR placed in a supine position. After administering general anesthesia the patient's abdomen was prepped with ChloraPrep and draped in a sterile fashion. A surgical time-out was called the consent confirmed. Patient received preoperative antibiotics and Venodyne boots were in place. Local anesthesia consisting of 0.5% Sensorcaine plain was infiltrated over the left inguinal ligament. Incision was then made with scalpel carried out through subcutaneous tissue, past Cash's fashion up to the external oblique aponeurosis. Additional local was infiltrated at this time below the aponeurosis. This was then incised with a scalpel wide with the Metzenbaum scissors. Sharp dissection and using the Metzenbaum scissor was then used to dissect the external oblique aponeurosis off the PHS large mesh. The spermatic cord was then dissected from the surrounding scar tissue and retracted using a Mahesh drain. During this dissection a entrapped nerve was identified in the upper portion of the repair. This appeared to be caught in scar tissue and was lysed. Electrocautery was used to perform the lysis. Fibers of the cremasteric muscle were then and the cord explored. A small indirect sac was identified within the cord. This was dissected down to the internal ring. The sac was opened and all contents were found to be reduced. A 0 Polysorb suture was placed at the base of the sac and the sac ligated. The sac was then excised above the suture ligature. The internal ring was determined to be a small bit large therefore was tightened using a single suture of 0 Polysorb suture. The ring was able past the tip of an index finger. Wounds were then irrigated with saline solution and suctioned dry. Additional local was infiltrated in the subcutaneous and muscular tissue. Wounds were checked for hemostasis. External oblique aponeurosis was then reapproximated using a running 2 0 Polysorb suture. Cash's fascia and dermis reapproximated using interrupted 3-0 Polysorb sutures. Skin was then closed using a running subcuticular 4-0 Polysorb suture. Steri-Strips 2 x 2 gauze and Tegaderm were then applied. The patient tolerated the procedure well. Sponge, instrument, and needle counts were reported as correct. The patient was transferred to PACU in stable condition.
[2021-09-06] MEDS: Acetaminophen 325 MG TABLET 650 MG PO (10:49)
[2021-09-06] MEDS: oxyCODONE HCl Immed Release 5 MG TABLET PO (10:50)
[2021-09-06] MEDS: fentaNYL citrate/PF 100 MCG/2 ML VIAL 25 MCG IVPUSH ×2 (10:51→10:55)
== END 2021-09-06 12:35 | disposition home or self-care (01) ==
PROVIDERS: Nurse Practitioner; PCP Internal Medicine; Visit Provider Surgery
PROC: (CPT 49999; principal; 2021-09-06 09:10)
DX: K40.91 Unilateral inguinal hernia, without obstruction or gangrene, recurrent (principal); I42.8 Other cardiomyopathies; I49.1 Atrial premature depolarization; I49.8 Other specified cardiac arrhythmias; J45.909 Unspecified asthma, uncomplicated; Z79.899 Other long term (current) drug therapy; Z87.891 Personal history of nicotine dependence
CPT/HCPCS: 49520; 36415; 80053; 85027; 88302; J0690; J1100; J1170; J1885; J2250; J2405; J3010

== ENCOUNTER → 2021-09-14 13:01 | Outpatient (BNVA) | payer OTHER, SELFPAY | PROVIDERS: PCP Internal Medicine; Referring Provider Internal Medicine; Visit Provider Surgery | DX: K40.91 Unilateral inguinal hernia, without obstruction or gangrene, recurrent (principal); I48.91 Unspecified atrial fibrillation; I42.8 Other cardiomyopathies; I49.1 Atrial premature depolarization; Z87.891 Personal history of nicotine dependence; Z79.891 Long term (current) use of opiate analgesic; Z79.899 Other long term (current) drug therapy | CPT/HCPCS: 99212 ==

== ENCOUNTER → 2021-09-26 14:41 | Outpatient (BNVA) | payer MEDICARE, MEDICAID, OTHER, SELFPAY | PROVIDERS: PCP Internal Medicine; Referring Provider Internal Medicine; Visit Provider Nurse Practitioner Family | DX: I49.1 Atrial premature depolarization (principal); I49.8 Other specified cardiac arrhythmias; I42.8 Other cardiomyopathies | CPT/HCPCS: 93005; 99212 ==

== ENCOUNTER → 2021-10-06 08:22 | Outpatient (BNVA) | payer MEDICARE, MEDICAID, OTHER, SELFPAY | PROVIDERS: PCP Internal Medicine; Referring Provider Internal Medicine; Visit Provider Internal Medicine | DX: R00.1 Bradycardia, unspecified (principal) | CPT/HCPCS: 93005 ==

== ENCOUNTER → 2021-10-17 13:11 | Outpatient (BNVA) | payer OTHER, MEDICARE, MEDICAID, SELFPAY | PROVIDERS: PCP Internal Medicine; Referring Provider Internal Medicine; Visit Provider Surgery | DX: K40.91 Unilateral inguinal hernia, without obstruction or gangrene, recurrent (principal) | CPT/HCPCS: 99212 ==

== ENCOUNTER → 2021-10-31 11:03 | Outpatient (BNVA) | payer OTHER, SELFPAY | PROVIDERS: PCP Internal Medicine; Referring Provider Internal Medicine; Visit Provider Surgery | DX: K40.91 Unilateral inguinal hernia, without obstruction or gangrene, recurrent (principal); R10.32 Left lower quadrant pain | CPT/HCPCS: 99212 ==

== ENCOUNTER → 2021-11-17 10:41 | Outpatient (BNVA) | payer OTHER, SELFPAY | PROVIDERS: PCP Internal Medicine; Referring Provider Internal Medicine; Visit Provider Surgery | DX: R10.32 Left lower quadrant pain (principal); K40.91 Unilateral inguinal hernia, without obstruction or gangrene, recurrent | CPT/HCPCS: 99212 ==

== ENCOUNTER → 2021-11-20 10:20 | Outpatient (BNVA) | payer OTHER, SELFPAY | PROVIDERS: PCP Internal Medicine; Visit Provider Internal Medicine | DX: G57.92 Unspecified mononeuropathy of left lower limb (principal); G58.8 Other specified mononeuropathies; R10.32 Left lower quadrant pain | CPT/HCPCS: 99202 ==

== ENCOUNTER → 2021-12-19 14:24 | Outpatient (BNVA) | payer MEDICARE, MEDICAID, SELFPAY | PROVIDERS: PCP Internal Medicine; Referring Provider Internal Medicine; Visit Provider Internal Medicine | DX: I42.8 Other cardiomyopathies (principal); I49.8 Other specified cardiac arrhythmias | CPT/HCPCS: 93005; 99212 ==

== ENCOUNTER → 2022-01-11 14:47 | Outpatient (BNVA) | payer MEDICARE, MEDICAID, SELFPAY | PROVIDERS: PCP Internal Medicine; Referring Provider Internal Medicine; Visit Provider Surgery | DX: R10.32 Left lower quadrant pain (principal); K40.91 Unilateral inguinal hernia, without obstruction or gangrene, recurrent; I10 Essential (primary) hypertension; I48.91 Unspecified atrial fibrillation; I49.1 Atrial premature depolarization; I42.8 Other cardiomyopathies; Z87.891 Personal history of nicotine dependence; Z79.891 Long term (current) use of opiate analgesic; Z79.899 Other long term (current) drug therapy | CPT/HCPCS: 99212 ==

== ENCOUNTER → 2022-02-13 11:34 | Outpatient (BNVA) | payer MEDICARE, MEDICAID, SELFPAY | PROVIDERS: PCP Internal Medicine; Referring Provider Internal Medicine; Visit Provider Surgery | DX: R10.32 Left lower quadrant pain (principal); Z98.890 Other specified postprocedural states; Z87.19 Personal history of other diseases of the digestive system | CPT/HCPCS: 99212 ==

== ENCOUNTER 2022-02-17 11:59 | Emergency (ER) | payer MEDICARE, MEDICAID, SELFPAY ==
--- NOTE | ~2022-02-17 | XR_ITS ---
EXAMINATION: XR CHEST CLINICAL INFORMATION: Chest pain COMPARISON: Previous chest x-ray November 2012 TECHNIQUE: 2 views of the chest were obtained. FINDINGS: No significant abnormality is noted involving the heart, lungs, mediastinum, bony thorax or soft tissues. XR/XR chest 2V IMPRESSION: Unremarkable examination.
--- NOTE | ~2022-02-17 | CT_ITS ---
EXAMINATION: CT ABDOMEN AND PELVIS WITH CONTRAST CLINICAL INFORMATION: Left inguinal hernia pain. COMPARISON: Multiple priors with the last abdomen and pelvic CT of 03/05/[address] scan of 08/08/2021. TECHNIQUE: Multidetector volumetric images were obtained from the superior aspect of the liver through the pubic symphysis following administration 85 mL of Omnipaque 350 intravenous contrast. Sagittal and coronal reformatted images were obtained on the technologist's workstation. Oral contrast: No This CT examination was performed using dose optimization techniques as appropriate, variously including the following: *Automated exposure control *Adjustment of mA and/or kV according to patient size (this includes techniques or standardized protocols for targeted exams where dose is matched to indication/reason for exam; i.e. extremities or head) *Use of iterative reconstruction technique DLP: 359 mGy-cm FINDINGS: LUNG BASES: The visualized lung bases are unremarkable. LIVER, GALLBLADDER, AND BILIARY TREE: The liver is normal in size, shape, and attenuation. No focal hepatic lesion or biliary ductal dilatation is present. The gallbladder is moderately contracted, however, otherwise unremarkable. PANCREAS: Unremarkable. SPLEEN: Unremarkable. ADRENAL GLANDS: Unremarkable. KIDNEYS AND URETERS: The kidneys are normal in size, shape, and attenuation. No hydronephrosis, hydroureter, or calculi seen. No perinephric stranding. BLADDER: Significantly underdistended and therefore not optimally evaluated. Apparent diffuse bladder wall thickening noted is probably related to underdistention; however, associated infectious process/inflammatory process cannot be completely excluded. GASTROINTESTINAL TRACT: The stomach is some somewhat distended with ingested material. No abnormal small-bowel dilatation. An appendix is not clearly identified. [id number] stool burden is noted throughout the colon. No evidence of colonic wall thickening or pericolonic fat stranding. ABDOMINAL WALL: There is a fat containing right inguinal hernia with a very small portion of a small-bowel loop protruding into the hernial sac. The hernia measures approximately 3.5 x 3.2 cm. No fat stranding or fluid collection is noted in the hernial sac. No discrete left inguinal hernia is noted. Recommend correlation with history of prior hernia or hernia repair in the region. Mild stranding/small fluid collection along the left inguinal canal proximal portion within the abdominal/pelvic cavity (series 3 image 64) measuring 1.7 x 1.1 cm a stable finding compared to previous CT scan of 08/08/2021. LYMPH NODES: No pathologically enlarged lymph nodes are noted. VASCULAR: The aortoiliac vessels are normal in caliber and well opacified. Mild scattered calcific atherosclerosis of the aorta. PELVIC VISCERA: Enlarged prostate is redemonstrated, measuring 4.5 cm in transverse dimension. Seminal vesicles are grossly unremarkable. OSSEOUS STRUCTURES: No acute or suspicious osseous lesions are seen. Mild degenerative changes in the lower lumbar spine and lower thoracic spine. CT/CT abdomen pelvis w con IMPRESSION: No discrete left inguinal hernia is noted. The appearance of the left inguinal region is similar to that seen on the previous CT scan of 08/08/2021. Recommend clinical correlation with history of previous hernia/surgery in the region. Small suspected fluid collection along the proximal portion of the left inguinal canal within the pelvic cavity is a stable finding compared to previous CT scan of 08/08/2021. Right inguinal hernia containing fat and a very small portion of a nonobstructed small-bowel loop, a new finding compared to previous CT of 08/08/2021. Fleischner guidelines were followed.
[2022-02-17 12:17] VITALS: BP 113/92; PULSE 89; RESP 20; TEMP 36.5; O2SAT 97; BMI 22.3
[2022-02-17 14:19] LABS: MANUAL DIFF FLAG NO
[2022-02-17 14:20] LABS: Basophils Absolute Auto 0.1 X10*3/uL (0.0-0.2); Basophils Percent Auto 0.8 % (0-2); Eosinophils Absolute Auto 0.1 X10*3/uL (0.0-0.4); Eosinophils Percent Auto 1.1 % (0-4); Hematocrit 47.3 % (42.0-52.0); Hemoglobin 16.3 g/dl (14.0-18.0); Imm Gran Abs Auto 0.01 X10*3/uL (0.00-0.03); Imm Gran Pct Auto 0.1 % (0.0-0.4); Lymphocytes Absolute Auto 2.7 X10*3/uL (1.2-4.9); Lymphocytes Percent Auto 36.1 % (20-40); Mean Corpuscular HGB Conc 34.5 g/dl (31.0-36.0); Mean Corpuscular Hemoglobin 30.9 pg (27.0-33.0); Mean Corpuscular Volume 89.8 fL (80.0-98.0); Monocytes Absolute Auto 0.8 X10*3/uL (0.1-1.2); Neutrophils Absolute Auto 3.7 x10*3/uL (2.0-8.3); Neutrophils Percent Auto 50.9 % (45-73); Platelet Count 247 X10*3/uL (160-400); Red Blood Count 5.27 X10*6/uL (4.60-5.80); White Blood Count 7.3 X10*3/uL (4.8-10.8)
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
[2022-02-17 14:41] LABS: Troponin-I High Sensitivity < 3.5 ng/L (<3.5-35.0)
[2022-02-17 14:46] LABS: Anion Gap 9 (12-20); Blood Urea Nitrogen 13 mg/dL (9-16); Calcium 9.6 mg/dL (8.4-10.2); Carbon Dioxide 26 mmol/L (22-29); Chloride 108 mmol/L (96-108); Creatinine Clr Calc Pharmacy 81.4; Estimated Glomerular Filt Rate > 60; Glucose Random 111 mg/dL (60-115); Potassium 4.4 mmol/L (3.3-5.1); Sodium 139 mmol/L (135-145)
--- NOTE | 2022-02-17 14:52 | ECG_ITS ---
Test Reason : cp Blood Pressure : / mmHG Vent. Rate : 067 BPM Atrial Rate : 000 BPM P-R Int : 000 ms QRS Dur : 092 ms QT Int : 376 ms P-R-T Axes : 000 058 040 degrees QTc Int : 397 ms Normal sinus rhythm with Premature atrial complexes Possible Anterior infarct , age undetermined Abnormal ECG When compared with ECG of 30-NOV-2012 19:34, Premature atrial complexes are now Present Referred By: Whitney Pineda Electronically Signed By:ESTER HART MD
[2022-02-17 15:18] VITALS: BP 144/85; PULSE 69; RESP 18; TEMP 37.3; O2SAT 97
[2022-02-17] MEDS: iohexoL 350 MG/ML 100 ML INFUS..BTL IV (15:47)
[2022-02-17 15:57] LABS: Appearance Urine CLEAR; Color Urine YELLOW; Glucose Urine UA NEG (NEG); Leukocyte Esterase Urine NEG (NEG); Nitrite Urine NEG (NEG); PH 5.5 (5.0-8.0); Specific Gravity - Urine >= 1.030 (1.005-1.025); Urine Blood NEG (NEG); Urine Ketones NEG (NEG); Urine Protein NEG (NEG-TRACE)
[2022-02-17] MEDS: diphenhydrAMINE HCL 50 MG/ML VIAL IVPUSH (16:06)
[2022-02-17] MEDS: ondansetron HCL 4 MG/2 ML VIAL IVPUSH (16:07)
[2022-02-17] MEDS: Metoclopramide HCl 10 MG/2 ML VIAL IVPUSH (16:07)
[2022-02-17] MEDS: Ketorolac Tromethamine 15 MG/ML VIAL IVPUSH (16:07)
[2022-02-17] MEDS: 0.9 % Sodium Chloride 1,000 ML 999 ML IV (16:08)
[2022-02-17 16:38] LABS: COVID-19 Test Negative (Negative)
== END 2022-02-17 17:26 | disposition home or self-care (01) ==
PROVIDERS: Physician Assistant; Emergency Provider Emergency Medicine; PCP Internal Medicine
DX: G43.909 Migraine, unspecified, not intractable, without status migrainosus (principal); K40.90 Unilateral inguinal hernia, without obstruction or gangrene, not specified as recurrent; R07.89 Other chest pain; H53.8 Other visual disturbances; M54.2 Cervicalgia; Z20.822 Contact with and (suspected) exposure to COVID-19; Z79.899 Other long term (current) drug therapy; Z87.891 Personal history of nicotine dependence
CPT/HCPCS: 36415; 71046; 74177; 80048; 81003; 84484; 85025; 87635; 93005; 96361; 96374; 96375; 99284; J1200; J1885; J2405; J2765; Q9967

== ENCOUNTER 2022-02-28 05:55 | Outpatient (REF) | payer MEDICARE, MEDICAID, SELFPAY | END 2022-02-28 05:56 | disposition home or self-care (01) | LOC: HO.RADIR 05:55 | PROVIDERS: Visit Provider Internal Medicine | DX: G57.92 Unspecified mononeuropathy of left lower limb (principal); R10.32 Left lower quadrant pain | CPT/HCPCS: 64425; J2795 ==

== ENCOUNTER → 2022-03-09 11:33 | Outpatient (BNVA) | payer MEDICARE, MEDICAID, SELFPAY | PROVIDERS: PCP Internal Medicine; Referring Provider Internal Medicine; Visit Provider Surgery | DX: K40.90 Unilateral inguinal hernia, without obstruction or gangrene, not specified as recurrent (principal); G58.8 Other specified mononeuropathies | CPT/HCPCS: 99212 ==

== ENCOUNTER → 2022-03-13 09:07 | Outpatient (BNVA) | payer MEDICARE, MEDICAID, SELFPAY | PROVIDERS: PCP Internal Medicine; Referring Provider Internal Medicine; Visit Provider Internal Medicine | DX: I48.92 Unspecified atrial flutter (principal); I44.39 Other atrioventricular block; R94.31 Abnormal electrocardiogram [ECG] [EKG] | CPT/HCPCS: 93005 ==

== ENCOUNTER → 2022-03-22 09:17 | Outpatient (BNVA) | payer MEDICARE, MEDICAID, SELFPAY | PROVIDERS: PCP Internal Medicine; Referring Provider Internal Medicine; Visit Provider Internal Medicine | DX: Z01.810 Encounter for preprocedural cardiovascular examination (principal); I49.8 Other specified cardiac arrhythmias; I42.8 Other cardiomyopathies | CPT/HCPCS: 93005; 99212 ==

== ENCOUNTER → 2022-03-29 09:49 | Outpatient (BNVA) | payer MEDICARE, MEDICAID, SELFPAY | PROVIDERS: PCP Internal Medicine; Visit Provider Anesthesiology | DX: Z13.89 Encounter for screening for other disorder (principal) | CPT/HCPCS: Q3014 ==

== ENCOUNTER 2022-05-22 09:47 | Outpatient (REF) | payer MEDICARE, MEDICAID, SELFPAY ==
[2022-05-22 10:17] LABS: MANUAL DIFF FLAG NO
[2022-05-22 10:18] LABS: Basophils Absolute Auto 0.1 X10*3/uL (0.0-0.2); Basophils Percent Auto 0.6 % (0-2); Eosinophils Absolute Auto 0.2 X10*3/uL (0.0-0.4); Eosinophils Percent Auto 2.4 % (0-4); Hematocrit 47.6 % (42.0-52.0); Hemoglobin 16.7 g/dl (14.0-18.0); Imm Gran Abs Auto 0.05 X10*3/uL (0.00-0.03); Imm Gran Pct Auto 0.6 % (0.0-0.4); Lymphocytes Absolute Auto 2.3 X10*3/uL (1.2-4.9); Lymphocytes Percent Auto 29.4 % (20-40); Mean Corpuscular HGB Conc 35.1 g/dl (31.0-36.0); Mean Corpuscular Hemoglobin 31.4 pg (27.0-33.0); Mean Corpuscular Volume 89.5 fL (80.0-98.0); Mean Platelet Volume 8.5 fL (9.4-12.4); Monocytes Absolute Auto 0.8 X10*3/uL (0.1-1.2); Monocytes Percent Auto 10.2 % (2-11); Neutrophils Absolute Auto 4.4 x10*3/uL (2.0-8.3); Neutrophils Percent Auto 56.8 % (45-73); Platelet Count 245 X10*3/uL (160-400); Red Blood Count 5.32 X10*6/uL (4.60-5.80); Red Cell Distribution Width 12.9 % (11.0-16.0); White Blood Count 7.8 X10*3/uL (4.8-10.8)
[2022-05-22 10:40] LABS: Alanine Aminotransferase 16 U/L (0-40); Albumin Level 4.4 g/dL (3.5-5.0); Alkaline Phosphatase 57 U/L (39-117); Aspartate Amino Transferase 18 U/L (5-37); Bilirubin Direct 0.3 mg/dL (0.0-0.5); Bilirubin Total 0.6 mg/dL (0.0-1.0); Total Protein 7.3 g/dL (6.5-8.0)
[2022-05-25 12:21] LABS: Alpha Fetoprotein 1.3 ng/mL (<6.1)
[2022-05-25 19:03] LABS: FIB-ALT 15 U/L (9-46); FIB-Alpha-2-Macroglobulin 268 mg/dL (106-279); FIB-Apolipoprotein A1 137 mg/dL (94-176); FIB-GGT 13 U/L (3-85); FIB-Haptoglobin 45 mg/dL (43-212); FIB-Total Bilirubin 0.6 mg/dL (0.2-1.2); Liver Fibrosis Score 0.52; Liver Fibrosis Stage F2; Nec Inflam Act Grade A0; Nec Inflam Act Score 0.07
== END 2022-05-22 09:48 | disposition home or self-care (01) ==
LOC: HO.LAB 09:47
PROVIDERS: PCP Internal Medicine; Visit Provider Internal Medicine
DX: B18.2 Chronic viral hepatitis C (principal)
CPT/HCPCS: 36415; 80076; 81596; 82105; 85025

== ENCOUNTER → 2022-06-25 12:06 | Outpatient (BNVA) | payer MEDICARE, MEDICAID, SELFPAY | PROVIDERS: PCP Internal Medicine; Referring Provider Internal Medicine; Visit Provider Internal Medicine | DX: Z01.810 Encounter for preprocedural cardiovascular examination (principal); I49.8 Other specified cardiac arrhythmias; I42.8 Other cardiomyopathies | CPT/HCPCS: 93005; 99212 ==

== ENCOUNTER → 2022-07-05 09:52 | Outpatient (BNVA) | payer MEDICARE, MEDICAID, SELFPAY | PROVIDERS: PCP Internal Medicine; Referring Provider Internal Medicine; Visit Provider Internal Medicine | DX: I49.9 Cardiac arrhythmia, unspecified (principal); Z79.01 Long term (current) use of anticoagulants; Z79.899 Other long term (current) drug therapy | CPT/HCPCS: 93005 ==

== ENCOUNTER 2022-07-15 15:35 | Inpatient (IN) | payer MEDICARE, MEDICAID, SELFPAY ==
[2022-07-03 14:33] VITALS: BMI 23.8
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
[2022-07-09] VITALS (37 sets, daily range): BP systolic 93–143; BP diastolic 66–87; PULSE 58–81; RESP 12–20; TEMP 36.1–37.2; O2SAT 94–100
[2022-07-09] MEDS: Lactated Ringers 1,000 ML 100 ML IVCONT ×2 (07:16→18:27)
--- NOTE | 2022-07-09 08:21 | W.PM.OPN ---
Operative Note Operative Note Date of Service: 07/09/22 Narrative: Preoperative disnosis: right inguinal hernia Postoperative diagnosis: same Procedure: repair of right inguinal hernia with mesh Surgeon: Dc Parkeh MD Managing Consultant Clinical Professor: Yana Huizar PA-C; GILL aYo Anesthesia: general LMA Indications for procedure: 61-year-old male patient presenting with painful lump in the right groin previous history of a left inguinal hernia repair. He presents today for repair of the right inguinal hernia. Operative findings: direct right inguinal hernia, reducible Specimen: None Estimated blood loss: less than 1 mL Complications: none Procedure details: patient was brought to the OR placed in a supine position. After administering general anesthesia the patient's abdomen Was prepped with ChloraPrep and draped in a sterile fashion. A surgical time-out was called the consent confirmed. Patient received preoperative antibiotics and Venodyne boots were in place. Local anesthesia consisting of 0.5% Sensorcaine was then infiltrated over the right inguinal ligament. Incision was then made in the same location and carried out through subcutaneous tissue, past Cash's fascia, and up to the external oblique aponeurosis. Additional local was then infiltrated below the external oblique aponeurosis. This was then incised in the direction of the fibers and wide with the Metzenbaum scissors. Spermatic cord was then dissected free from the surrounding inguinal canal and retracted using a [place] drain. A direct hernia was identified just below the internal ring. Fibers of the cremasteric muscle were then in the cord explored. No indirect sac could be identified. Fibers of the internal oblique aponeurosis and transversalis aponeurosis were then divided in the preperitoneal space opened. This was then further opened using an open Ray-Mana sponge. A large PHS mesh was then obtained. The circular underlay was then deployed within the preperitoneal space. The overlay was then secured to the pubic tubercle, conjoined tendon, and shelving edge of the inguinal ligament using a 0 Polysorb suture. A slit was made in the mesh in the mesh wrapped around the spermatic cord at the internal ring. This was then secured to the shelving edge using the 0 Polysorb suture. The wrap was loose enough to allow the tip of an index finger to pass. Wounds were then irrigated with saline solution and suctioned dry. External oblique aponeurosis was then reapproximated using a running 2 0 Polysorb suture. Additional Zenrelef was applied for total of 8.5 mls. Cash's fascia was then reapproximated using interrupted 3-0 Polysorb sutures. dermis was reapproximated using interrupted 3-0 Polysorb sutures and skin closed using a running subcuticular 4-0 Polysorb suture. Steri-Strips, 2 x 2 gauze and Tegaderm were then applied. The patient tolerated the procedure well. Sponge, instrument, and needle counts reported as correct. The patient was transferred to PACU in stable condition.
--- NOTE | 2022-07-09 08:30 | P.HPSUR_ITS ---
Pre-Procedural Eval Section A Date of Service: 07/09/22 The patient is an INPATIENT: No Changes since office visit: Yes Patient answered all questions; No Cold of Flu in the past 2 weeks, No New Medical Problems and No Changes in Medication The History & Physical has been completed within 30 days and I have reviewed it.: No Section B Chief Complaint: hernia Details of Present Illness: Painful lump in the right groin found to have a hernia by CT, reducible light pressure. Relevant Family History (Specify if Yes): No Relevant Social History: None Present Medications: see Short Stay Collaborative assessment Medical History: Significant History History of Previous Operations: Relevant previous surgery/procedure and date(s) ( Left inguinal evelina) Allergies: Allergies Allergy/AdvReac Type Severity Reaction Status Date / Time No Known Allergies Allergy Verified 07/09/22 06:12 [No Known Allergies*] Review of Systems Sugical H&P ROS: Negative: Constitution, Cardiovascular, Respiratory, Neurological, Psychiatric, Hem-Onc, Allergic/Immunologic, Gastrointestinal, Genitourinary, Musculoskeletal, Integumentary, Endocrine and Eyes/Ears/Nose/Throat Exam Surgical H&P Exam: Normal: HEENT, Normal: Heart, Normal: Lungs, Normal: Extremities, Normal: Skin and Normal: Neurological and Significant Findings: A bdomen ( right inguinal hernia which increases with Valsalva) Plan Diagnosis/Plan: Unchanged I have reviewed the history and physical and performed a pertinent physical examination on my patient. No changes have occurred unless specified.
[2022-07-09] MEDS: fentaNYL citrate/PF 100 MCG/2 ML VIAL 25 MCG IVPUSH ×2 (08:57→13:53)
[2022-07-09] MEDS: Acetaminophen 325 MG TABLET 650 MG PO (08:58)
[2022-07-09] MEDS: oxyCODONE HCl Immed Release 5 MG TABLET PO ×2 (08:59→20:44)
--- NOTE | 2022-07-09 12:03 | P.EN_ITS ---
Event Note Date of Service: 07/09/22 Event Note: patient noted over the past 15-20 minutes to have increased swelling in the right groin with a bluish discoloration suggestive of a hematoma. He denies any pain associated with the hernia but still has some numbness in the local anesthesia. On examination there is a large area of swelling suggestive of a large hematoma. I recommended return to the OR for drainage of this hematoma. After discussion of the procedure, risks, and alternatives, he consents to r eturn to the OR for drainage of the right inguinal hematoma.
--- NOTE | 2022-07-09 12:18 | PC.NURSE ---
plan for patient to return to the OR. Dr. Parekh at bedside continuing to hold pressure to right groin. Patient a&o pw&d denies pain / nausea.
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
--- NOTE | 2022-07-09 13:11 | W.PM.OPN ---
Operative Note Operative Note Date of Service: 07/09/22 Narrative: Preoperative diagnosis: Hematoma right groin status post right inguinal hernia repair Postoperative diagnosis: same Procedure: drainage of hematoma right groin Surgeon: Dc Parekh MD [employer] Coordinator: Yana Huizar PA-C, GILL Yao Anesthesia: general LMA Indications for procedure: 61-year-old male patient status post repair of a right inguinal hernia earlier today found to have an enlarging hematoma of the right groin while in recovery room. Patient previously was on oral anticoagulation for atrial fibrillation but has been off it since , 07/05/2022. Operative findings: Large hematoma extending into the scrotal sac with a bleeding vein noted in the medial portion of the incision in the subcutaneous tissue. Vessel was ligated x2 Specimen: none Estimated blood loss: 100 mL of clot Complications: none Procedure details: patient was brought to the OR placed in a supine position. After administering general anesthesia the patient's abdomen was with Betadine and draped in a sterile fashion. The previous incision in the right groin was then opened with the Metzenbaum scissors. A large hematoma was identified and evacuated. Multiple smaller clots were identified extending into the scrotal sac. These were evacuated with suction and blunt dissection. Wounds were opened down to the Cash's fascia and Cash's fascial closure was reopened. No area of active bleeding was noted in the lower wound but 2 vessels were identified in the subcutaneous tissue in the medial portion of the incision. These were grasped with hemostats and ligated with 3-0 Polysorb ties. Wounds were thoroughly irrigated with saline solution and suctioned dry. No active bleeding was identified. Surgicel was then packed into the incision and pressure held to assure adequate hemostasis. After assuring adequate hemostasis Cash's fascia was reapproximated using interrupted 3-0 Polysorb sutures. Dermis was reapproximated using interrupted 3-0 Polysorb sutures. Skin was then closed using a running subcuticular 4-0 Polysorb suture. Steri-Strips, Gauze dressing and Tegaderm were then applied. the patient tolerated the procedure well was transferred to PACU in stable condition.
--- NOTE | 2022-07-09 17:13 | PM.EVENT ---
Event Note Date of Service: 07/09/22 Event Note: Overall patient feels ok but is having trouble moving the right leg due to the local anesthetic. As a result, he is unable to ambulate. The hematoma has not returned. Patient will be made an extended recovery. Orders placed. COVID swab ordered. Patient aware and agrees with the plan.
--- NOTE | 2022-07-09 17:52 | PC.NURSE ---
eating dinner meal
[2022-07-09] MEDS: carvediloL 3.125 MG TABLET PO (20:44)
[2022-07-09] MEDS: Zolpidem Tartrate 5 MG TABLET PO (20:44)
[2022-07-09] MEDS: diazePAM 5 MG TABLET PO (20:52)
[2022-07-09] MEDS: 0.9 % Sodium Chloride Flush 3 ML SYRINGE IVFLUSH (20:56)
[2022-07-10] VITALS (7 sets, daily range): BP systolic 111–129; BP diastolic 52–64; PULSE 63–75; RESP 15–18; TEMP 36–37.1; O2SAT 95–98
[2022-07-10] MEDS: Lactated Ringers 1,000 ML 100 ML IVCONT ×3 (04:18→23:55)
[2022-07-10 05:52] LABS: MANUAL DIFF FLAG NO
[2022-07-10 05:58] LABS: Basophils Percent Auto 0.1 % (0-2); Hematocrit 38.6 % (42.0-52.0); Hemoglobin 13.3 g/dl (14.0-18.0); Imm Gran Abs Auto 0.07 X10*3/uL (0.00-0.03); Imm Gran Pct Auto 0.5 % (0.0-0.4); Lymphocytes Absolute Auto 1.3 X10*3/uL (1.2-4.9); Lymphocytes Percent Auto 8.8 % (20-40); Mean Corpuscular HGB Conc 34.5 g/dl (31.0-36.0); Mean Corpuscular Hemoglobin 31.1 pg (27.0-33.0); Mean Corpuscular Volume 90.4 fL (80.0-98.0); Mean Platelet Volume 9.1 fL (9.4-12.4); Monocytes Absolute Auto 0.9 X10*3/uL (0.1-1.2); Monocytes Percent Auto 6.2 % (2-11); Neutrophils Absolute Auto 12.7 x10*3/uL (2.0-8.3); Neutrophils Percent Auto 84.4 % (45-73); Platelet Count 203 X10*3/uL (160-400); Red Blood Count 4.27 X10*6/uL (4.60-5.80); Red Cell Distribution Width 12.1 % (11.0-16.0)
[2022-07-10] MEDS: carvediloL 3.125 MG TABLET PO ×2 (08:56→20:32)
[2022-07-10] MEDS: Amiodarone HCL 200 MG TABLET PO (08:56)
[2022-07-10] MEDS: Morphine Sulfate 2 MG/ML CARTRIDGE 5 MG IVPUSH ×3 (08:56→20:32)
[2022-07-10] MEDS: diazePAM 5 MG TABLET PO ×2 (08:58→20:32)
--- NOTE | 2022-07-10 09:03 | HO.POSTANES ---
Post Anesthesia Evaluation Post Anesthesia Evaluation Vital Signs: Vital Signs Temp Pulse Resp BP Pulse Ox O2 Del Method 07/10/22 07:52 97.9 F 63 15 129/58 L 96 Room Air 07/10/22 04:00 97.5 F 75 17 126/64 97 Room Air 07/10/22 00:00 98.1 F 74 17 111/52 L 98 Room Air Anesthesia: General Endotracheal-GETA Mental Status: Awake Pain Control: Satisfactory Nausea/Vomiting: None Hydration: Adequate Anesthesia-Related Issues: No Anes. Related Issues
--- NOTE | 2022-07-10 09:12 | MHC.CM.PN ---
PT REPORTS HE LIVES ALONE AFTER A RECENT SEPARATION HE REPORTS HE IS FULLY INDEPENDENT, HAS NO DME AND NO HOME SERVICES PT REPORTS HE IS UNSURE IF HE HAS A HCP, HE DECLINES TO COMPLETE ONE AT THIS TIME BUT IS AWARE CM CAN ASSIST WITH THIS ANY TIME DURING HIS ADMISSION PT REPORTS HE IS COVID VACCINATED AND DUE TO GET THE BOOSTER IN [place] PT CONFIRMS HIS PCP IS MATTHEW KEY DELIVERED CURRENT DC PLAN IS HOME WITH NO SERVICES PT WILL SELF ARRANGE TRANSPORT
--- NOTE | 2022-07-10 16:29 | PM.PNGS ---
Subjective Subjective Date of Service: 07/10/22 Interval history: Feels incisional pain, somewhat improved with pain meds. Swelling in the penis, but able to void. Physical Exam Vital Signs: Vital Signs: Last Vital Signs Temp 98.8 F 07/10/22 16:00 Pulse 66 07/10/22 16:00 Resp 18 07/10/22 16:00 BP 118/57 L 07/10/22 16:00 Pulse Ox 95 07/10/22 16:00 O2 Del Method 07/10/22 16:00 O2 Flow Rate 4 07/09/22 13:37 BMI result Body Mass Index 23.8 Const: General: cooperative and no acute distress Nutritional Appearance: thin Orientation/consciousness: patient oriented x3 Resp: Effort & Inspection: normal respiratory effort GI: Other: Scrotal support in place. No evidence of a recurrent hematoma. Scrotum soft, ecchymotic. Skin: General skin exam: no rashes or lesions noted Neuro: General: patient oriented x3 Extrem: General: Yes normal to inspection Objective Data Active Medications Acetaminophen (Acetaminophen 325 Mg Tablet) 650 mg PO Q6H PRN PRN Reason: Pain, Mild (Pain Scale 1-3) Albuterol Sulfate (Albuterol Sulfate 90 Mcg 8 Gm Inhaler) 2 puff INHALE Q4H PRN PRN Reason: Wheezing Amiodarone HCl (Amiodarone Hcl 200 Mg Tablet) 200 mg PO DAILY [facility] Last Admin: 07/10/22 08:56 Dose: 200 mg Documented By: ZINA Carvedilol (Carvedilol 3.125 Mg Tablet) 3.125 mg PO BID [facility]; Protocol Last Admin: 07/10/22 08:56 Dose: 3.125 mg Documented By: ZINA Diazepam (Diazepam 5 Mg Tablet) 5 mg PO BID PRN PRN Reason: Anxiety Last Admin: 07/10/22 08:58 Dose: 5 mg Documented By: ZINA Lactated Ringer's (Lr) 1,000 mls @ 100 mls/hr IVCONT .Q10H [facility] Last Admin: 07/10/22 14:40 Dose: 100 mls/hr Documented By: ZINA Morphine Sulfate (Morphine Sulfate 2 Mg/Ml Cartridge) 5 mg IVPUSH Q3H PRN; Protocol PRN Reason: Pain, Severe (Pain Scale 7-10) Last Admin: 07/10/22 14:40 Dose: 5 mg Documented By: ZINA Ondansetron HCl (Ondansetron Hcl 4 Mg/2 Ml Vial) 4 mg IVPUSH Q8H PRN PRN Reason: Nausea and Vomiting Oxycodone HCl (Oxycodone Hcl Immed Release 5 Mg Tablet) 5 mg PO Q4H PRN PRN Reason: Pain, Moderate (Pain Scale 4-6 Last Admin: 07/09/22 20:44 Dose: 5 mg Documented By: JAZIEL Sodium Chloride (0.9 % Sodium Chloride Flush 3 Ml Syringe) 3 ml IVFLUSH QSHIFT [facility] Last Admin: 07/10/22 15:04 Dose: Not Given Documented By: ZINA Non-Admin Reason: IV Running Zolpidem Tartrate (Zolpidem Tartrate 5 Mg Tablet) 5 mg PO BEDTIME PRN PRN Reason: Insomnia Last Admin: 07/09/22 20:44 Dose: 5 mg Documented By: JAZIEL Labs CBC & Chem 7: 07/10/22 05:14 Labs: Laboratory Results - last 24 hr 07/10/22 05:14 MCV 90.4 MCH 31.1 MCHC 34.5 RDW 12.1 Plt Count 203 MPV 9.1 L Immature Gran % (Auto) 0.5 H Neut % (Auto) 84.4 H Lymph % (Auto) 8.8 L [place] % (Auto) 6.2 Eos % (Auto) 0.0 Baso % (Auto) 0.1 Lymph # (Auto) 1.3 [place] # (Auto) 0.9 Eos # (Auto) 0.0 Baso # (Auto) 0.0 Abs Immat Gran (auto) 0.07 H Absolute Neuts (auto) 12.7 H Absolute Nucleated RBC 0.000 Nucleated RBC % (auto) 0.0 Procedures Date of Service Date of Service: 07/10/22 Progress Note: A&P Assessment and plan (1) Right inguinal hernia: Status: Acute Plan S/P repair of RIH, drainage of hematoma, POD #1. Patient with incisional pain, appropriate for the procedure. Wounds are intact with no recurrent hematoma. Continue to monitor. Will not be able to discharge today due to the need for IV pain meds. Encouraged OOB and ambulation. Time Spent With Patient Time: Total time spent is greater than 50% in coordination of care (as documented) at patient's floor/unit and/or counseling patient: Quality Stroke Does the patient have a stroke diagnosis?: No VTE Prior VTE?: No VTE Risk Level:: Surgical - moderate VTE Device Contraindication: N/A - Device Ordered VTE Drug Contraindication: Treatment Not Indicated (hematoma post op)
[2022-07-10] MEDS: Zolpidem Tartrate 5 MG TABLET PO (20:32)
[2022-07-10] MEDS: 0.9 % Sodium Chloride Flush 3 ML SYRINGE IVFLUSH (20:33)
[2022-07-11 03:27] VITALS: BP 92/61; PULSE 72; RESP 18; TEMP 36.4; O2SAT 96
[2022-07-11] MEDS: Morphine Sulfate 2 MG/ML CARTRIDGE 5 MG IVPUSH ×3 (04:41→21:21)
[2022-07-11 07:14] VITALS: BP 136/69; PULSE 61; RESP 18; TEMP 36.6; O2SAT 95
[2022-07-11] MEDS: oxyCODONE HCl Immed Release 5 MG TABLET PO (07:29)
--- NOTE | 2022-07-11 07:47 | PM.PNGS ---
Subjective Subjective Date of Service: 07/11/22 Interval history: Mainly complains of incisional tenderness and swelling and penis. Was out of bed and ambulating yesterday. Generally feels more comfortable with still requiring IV pain medication. Has not had a bowel since surgery. Physical Exam Vital Signs: Vital Signs: Last Vital Signs Temp 97.8 F 07/11/22 07:14 Pulse 61 07/11/22 07:14 Resp 18 07/11/22 07:14 BP 136/69 07/11/22 07:14 Pulse Ox 95 07/11/22 07:14 O2 Del Method 07/11/22 07:14 O2 Flow Rate 4 07/09/22 13:37 BMI result Body Mass Index 23.8 Const: Other: Awake, alert, in no acute distress. Resp: Other: Breathing comfortably on room air, no respiratory distress GI: Other: Ecchymosis in the right groin extending into the testicle. Dressings clean, dry, and intact. No evidence of recurrent hematoma. Skin: Other: Ecchymosis as noted above otherwise warm, dry, and intact Extrem: Other: No edema Objective Data Active Medications Acetaminophen (Acetaminophen 325 Mg Tablet) 650 mg PO Q6H PRN PRN Reason: Pain, Mild (Pain Scale 1-3) Albuterol Sulfate (Albuterol Sulfate 90 Mcg 8 Gm Inhaler) 2 puff INHALE Q4H PRN PRN Reason: Wheezing Amiodarone HCl (Amiodarone Hcl 200 Mg Tablet) 200 mg PO DAILY [facility] Last Admin: 07/10/22 08:56 Dose: 200 mg Documented By: ZINA Carvedilol (Carvedilol 3.125 Mg Tablet) 3.125 mg PO BID [facility]; Protocol Last Admin: 07/10/22 20:32 Dose: 3.125 mg Documented By: LIBBY Diazepam (Diazepam 5 Mg Tablet) 5 mg PO BID PRN PRN Reason: Anxiety Last Admin: 07/10/22 20:32 Dose: 5 mg Documented By: LIBBY Lactated Ringer's (Lr) 1,000 mls @ 100 mls/hr IVCONT .Q10H [facility] Last Admin: 07/10/22 23:55 Dose: 100 mls/hr Documented By: LIBBY Morphine Sulfate (Morphine Sulfate 2 Mg/Ml Cartridge) 5 mg IVPUSH Q3H PRN; Protocol PRN Reason: Pain, Severe (Pain Scale 7-10) Last Admin: 07/11/22 04:41 Dose: 5 mg Documented By: LIBBY Ondansetron HCl (Ondansetron Hcl 4 Mg/2 Ml Vial) 4 mg IVPUSH Q8H PRN PRN Reason: Nausea and Vomiting Oxycodone HCl (Oxycodone Hcl Immed Release 5 Mg Tablet) 5 mg PO Q4H PRN PRN Reason: Pain, Moderate (Pain Scale 4-6 Last Admin: 07/11/22 07:29 Dose: 5 mg Documented By: JADA Polyethylene Glycol (Polyethylene Glycol 3350 17 Gm Powd.Pack) 17 gm PO DAILY PRN PRN Reason: constipation Sodium Chloride (0.9 % Sodium Chloride Flush 3 Ml Syringe) 3 ml IVFLUSH QSHIFT [facility] Last Admin: 07/11/22 07:20 Dose: Not Given Documented By: JADA Non-Admin Reason: IV Running Zolpidem Tartrate (Zolpidem Tartrate 5 Mg Tablet) 5 mg PO BEDTIME PRN PRN Reason: Insomnia Last Admin: 07/10/22 20:32 Dose: 5 mg Documented By: LIBBY Labs CBC & Chem 7: 07/10/22 05:14 Procedures Date of Service Date of Service: 07/11/22 Progress Note: A&P Assessment and plan (1) Right inguinal hernia: Status: Acute Plan Pod 2 following repair of right inguinal hernia with mesh followed by drainage of hematoma which developed in the recovery room. Patient now mainly complains of incisional pain and is requiring IV pain meds. Will need to wean off IV pain meds converted to oral pain medication. No evidence of recurrent bleeding. Patient will restart oral anticoagulation today. Will need to monitor for recurrent bleed once this started. Encourage patient to get out of bed and ambulate. MiraLax for bowels. Time Spent With Patient Time: Total time spent is greater than 50% in coordination of care (as documented) at patient's floor/unit and/or counseling patient: Quality Stroke Does the patient have a stroke diagnosis?: No VTE Prior VTE?: No VTE Risk Level:: Surgical - moderate VTE Device Contraindication: N/A - Device Ordered VTE Drug Contraindication: Treatment Not Indicated (hematoma post op)
[2022-07-11] MEDS: Lactated Ringers 1,000 ML 100 ML IVCONT ×2 (09:53→21:23)
[2022-07-11] MEDS: carvediloL 3.125 MG TABLET PO ×2 (09:54→21:18)
[2022-07-11] MEDS: Amiodarone HCL 200 MG TABLET PO (09:54)
[2022-07-11] MEDS: polyethylene glycoL 3350 17 GM POWD.PACK PO (09:55)
[2022-07-11 11:24] VITALS: BP 128/67; PULSE 65; RESP 18; TEMP 36.9; O2SAT 95
[2022-07-11 16:00] VITALS: BP 124/57; PULSE 65; RESP 19; TEMP 36.8; O2SAT 95
[2022-07-11 19:43] VITALS: BP 116/54; PULSE 61; RESP 18; TEMP 36.7; O2SAT 96
[2022-07-11] MEDS: diazePAM 5 MG TABLET PO (21:18)
[2022-07-11] MEDS: Zolpidem Tartrate 5 MG TABLET PO (21:19)
[2022-07-12] VITALS (7 sets, daily range): BP systolic 119–148; BP diastolic 58–82; PULSE 59–84; RESP 15–20; TEMP 35.7–37.3; O2SAT 94–98
[2022-07-12] MEDS: Morphine Sulfate 2 MG/ML CARTRIDGE 5 MG IVPUSH ×2 (02:48→08:51)
[2022-07-12] MEDS: Lactated Ringers 1,000 ML 100 ML IVCONT ×2 (05:09→14:55)
--- NOTE | 2022-07-12 08:10 | PM.PNGS ---
Subjective Subjective Date of Service: 07/12/22 Interval history: Feels bloated, no BM since surgery. Passing some flatus. Complains of incisional pain. Physical Exam Vital Signs: Vital Signs: Last Vital Signs Temp 96.2 F L 07/12/22 08:00 Pulse 60 07/12/22 08:00 Resp 20 07/12/22 08:00 BP 148/82 H 07/12/22 08:00 Pulse Ox 98 07/12/22 08:00 O2 Del Method 07/12/22 08:00 O2 Flow Rate 4 07/09/22 13:37 BMI result Body Mass Index 23.8 Const: General: no acute distress Nutritional Appearance: thin Orientation/consciousness: patient oriented x3 Limitations: no limitations Resp: Effort & Inspection: normal respiratory effort, no audible wheezes, no cough and no respiratory distress GI: Other: incision is clean and intact without redness or discharge. No recurrent hematoma. Scrotum with ecchymosis but not hematoma. Skin: Other: warm and dry Neuro: General: patient oriented x3 Objective Data Active Medications Acetaminophen (Acetaminophen 325 Mg Tablet) 650 mg PO Q6H PRN PRN Reason: Pain, Mild (Pain Scale 1-3) Albuterol Sulfate (Albuterol Sulfate 90 Mcg 8 Gm Inhaler) 2 puff INHALE Q4H PRN PRN Reason: Wheezing Amiodarone HCl (Amiodarone Hcl 200 Mg Tablet) 200 mg PO DAILY [facility] Last Admin: 07/11/22 09:54 Dose: 200 mg Documented By: JADA Carvedilol (Carvedilol 3.125 Mg Tablet) 3.125 mg PO BID [facility]; Protocol Last Admin: 07/11/22 21:18 Dose: 3.125 mg Documented By: LIBBY Diazepam (Diazepam 5 Mg Tablet) 5 mg PO BID PRN PRN Reason: Anxiety Last Admin: 07/11/22 21:18 Dose: 5 mg Documented By: LIBBY Lactated Ringer's (Lr) 1,000 mls @ 100 mls/hr IVCONT .Q10H [facility] Last Admin: 07/12/22 05:09 Dose: 100 mls/hr Documented By: LIBBY Mineral Oil (Mineral Oil Enema 133 Ml Enema) 133 ml IN ONCE ONE Stop: 07/12/22 08:09 Morphine Sulfate (Morphine Sulfate 2 Mg/Ml Cartridge) 5 mg IVPUSH Q3H PRN; Protocol PRN Reason: Pain, Severe (Pain Scale 7-10) Last Admin: 07/12/22 02:48 Dose: 5 mg Documented By: LIBBY Ondansetron HCl (Ondansetron Hcl 4 Mg/2 Ml Vial) 4 mg IVPUSH Q8H PRN PRN Reason: Nausea and Vomiting Oxycodone HCl (Oxycodone Hcl Immed Release 5 Mg Tablet) 10 mg PO Q4H PRN PRN Reason: Pain, Moderate (Pain Scale 4-6 Polyethylene Glycol (Polyethylene Glycol 3350 17 Gm Powd.Pack) 17 gm PO DAILY PRN PRN Reason: constipation Last Admin: 07/11/22 09:55 Dose: 17 gm Documented By: JADA Sodium Chloride (0.9 % Sodium Chloride Flush 3 Ml Syringe) 3 ml IVFLUSH QSHIFT [facility] Last Admin: 07/11/22 22:30 Dose: Not Given Documented By: LIBBY Non-Admin Reason: IV Running Zolpidem Tartrate (Zolpidem Tartrate 5 Mg Tablet) 5 mg PO BEDTIME PRN PRN Reason: Insomnia Last Admin: 07/11/22 21:19 Dose: 5 mg Documented By: LIBBY Labs CBC & Chem 7: 07/10/22 05:14 Procedures Date of Service Date of Service: 07/12/22 Progress Note: A&P Assessment and plan (1) Right inguinal hernia: Status: Acute Plan S/P repair of RIH, developed hematoma in the right groin requiring a return to the OR for drainage. Pain remains an issue and patient continues to require IV pain meds. Will remove the scrotal support. Enema for bowels ordered today. Encouraged OOB and ambulation. Time Spent With Patient Time: Total time spent is greater than 50% in coordination of care (as documented) at patient's floor/unit and/or counseling patient: Quality Stroke Does the patient have a stroke diagnosis?: No VTE Prior VTE?: No VTE Risk Level:: Surgical - moderate VTE Device Contraindication: N/A - Device Ordered VTE Drug Contraindication: Treatment Not Indicated (hematoma post op)
[2022-07-12] MEDS: polyethylene glycoL 3350 17 GM POWD.PACK PO (08:51)
[2022-07-12] MEDS: diazePAM 5 MG TABLET PO ×2 (08:52→22:09)
[2022-07-12] MEDS: Amiodarone HCL 200 MG TABLET PO (08:52)
[2022-07-12] MEDS: carvediloL 3.125 MG TABLET PO ×2 (08:52→22:09)
[2022-07-12] MEDS: Mineral OiL enema 133 ML ENEMA PR (10:37)
[2022-07-12] MEDS: oxyCODONE HCl Immed Release 5 MG TABLET 10 MG PO ×3 (13:00→22:10)
[2022-07-12] MEDS: Zolpidem Tartrate 5 MG TABLET PO (22:10)
[2022-07-12] MEDS: 0.9 % Sodium Chloride Flush 3 ML SYRINGE IVFLUSH (22:10)
[2022-07-13] MEDS: Lactated Ringers 1,000 ML 100 ML IVCONT (00:20)
[2022-07-13 03:38] VITALS: BP 132/60; PULSE 87; RESP 17; TEMP 36.4; O2SAT 96
[2022-07-13 06:50] LABS: MANUAL DIFF FLAG NO
[2022-07-13 06:54] LABS: Basophils Percent Auto 0.5 % (0-2); Eosinophils Absolute Auto 0.3 X10*3/uL (0.0-0.4); Eosinophils Percent Auto 3.2 % (0-4); Hemoglobin 13.3 g/dl (14.0-18.0); Imm Gran Abs Auto 0.09 X10*3/uL (0.00-0.03); Imm Gran Pct Auto 1.1 % (0.0-0.4); Lymphocytes Absolute Auto 2.7 X10*3/uL (1.2-4.9); Lymphocytes Percent Auto 32.6 % (20-40); Mean Corpuscular HGB Conc 34.1 g/dl (31.0-36.0); Mean Corpuscular Hemoglobin 31.6 pg (27.0-33.0); Mean Corpuscular Volume 92.6 fL (80.0-98.0); Mean Platelet Volume 9.6 fL (9.4-12.4); Monocytes Absolute Auto 0.8 X10*3/uL (0.1-1.2); Neutrophils Absolute Auto 4.4 x10*3/uL (2.0-8.3); Neutrophils Percent Auto 52.6 % (45-73); Platelet Count 214 X10*3/uL (160-400); Red Blood Count 4.21 X10*6/uL (4.60-5.80); Red Cell Distribution Width 12.2 % (11.0-16.0); White Blood Count 8.3 X10*3/uL (4.8-10.8)
[2022-07-13 07:28] LABS: Anion Gap 14 (12-20); Blood Urea Nitrogen 18 mg/dL (9-16); Calcium 9.2 mg/dL (8.4-10.2); Carbon Dioxide 28 mmol/L (22-29); Chloride 102 mmol/L (96-108); Creatinine Clr Calc Pharmacy 75.2; Estimated Glomerular Filt Rate > 60; Glucose Random 87 mg/dL (60-115); Potassium 4.5 mmol/L (3.3-5.1); Sodium 139 mmol/L (135-145)
[2022-07-13 08:00] VITALS: BP 117/69; PULSE 66; RESP 16; TEMP 36; O2SAT 96
[2022-07-13] MEDS: carvediloL 3.125 MG TABLET PO ×2 (08:22→21:20)
[2022-07-13] MEDS: Amiodarone HCL 200 MG TABLET PO (08:22)
[2022-07-13] MEDS: oxyCODONE HCl Immed Release 5 MG TABLET 10 MG PO ×2 (08:22→16:04)
[2022-07-13] MEDS: diazePAM 5 MG TABLET PO ×2 (08:22→21:29)
--- NOTE | 2022-07-13 08:25 | PM.PNGS ---
Subjective Subjective Date of Service: 07/13/22 Interval history: Reported having a bad night due to pain. Unable to sleep. Denies nausea or vomiting. He is tolerating regular diet. Was able to ambulate yesterday but felt weak in the knees. Physical Exam Vital Signs: Vital Signs: Last Vital Signs Temp 96.8 F 07/13/22 08:00 Pulse 66 07/13/22 08:00 Resp 16 07/13/22 08:00 BP 117/69 07/13/22 08:00 Pulse Ox 96 07/13/22 08:00 O2 Del Method 07/13/22 08:00 O2 Flow Rate 4 07/09/22 13:37 BMI result Body Mass Index 23.8 Const: General: cooperative and well developed Nutritional Appearance: well nourished Orientation/consciousness: patient oriented x3 Limitations: no limitations Resp: Effort & Inspection: normal respiratory effort GI: Other: Incision is clean and intact without bleeding or discharge. No evidence of a hematoma. Residual ecchymosis is noted. Skin: Other: Warm, dry, no rash Neuro: General: patient oriented x3 Objective Data Active Medications Acetaminophen (Acetaminophen 325 Mg Tablet) 650 mg PO Q6H PRN PRN Reason: Pain, Mild (Pain Scale 1-3) Albuterol Sulfate (Albuterol Sulfate 90 Mcg 8 Gm Inhaler) 2 puff INHALE Q4H PRN PRN Reason: Wheezing Amiodarone HCl (Amiodarone Hcl 200 Mg Tablet) 200 mg PO DAILY [facility] Last Admin: 07/13/22 08:22 Dose: 200 mg Documented By: ZINA Carvedilol (Carvedilol 3.125 Mg Tablet) 3.125 mg PO BID [facility]; Protocol Last Admin: 07/13/22 08:22 Dose: 3.125 mg Documented By: ZINA Diazepam (Diazepam 5 Mg Tablet) 5 mg PO BID PRN PRN Reason: Anxiety Last Admin: 07/13/22 08:22 Dose: 5 mg Documented By: ZINA Lactated Ringer's (Lr) 1,000 mls @ 100 mls/hr IVCONT .Q10H [facility] Last Admin: 07/13/22 00:20 Dose: 100 mls/hr Documented By: JAZIEL Morphine Sulfate (Morphine Sulfate 2 Mg/Ml Cartridge) 5 mg IVPUSH Q3H PRN; Protocol PRN Reason: Pain, Severe (Pain Scale 7-10) Last Admin: 07/12/22 08:51 Dose: 5 mg Documented By: ZINA Ondansetron HCl (Ondansetron Hcl 4 Mg/2 Ml Vial) 4 mg IVPUSH Q8H PRN PRN Reason: Nausea and Vomiting Oxycodone HCl (Oxycodone Hcl Immed Release 5 Mg Tablet) 10 mg PO Q4H PRN PRN Reason: Pain, Moderate (Pain Scale 4-6 Last Admin: 07/13/22 08:22 Dose: 10 mg Documented By: ZINA Polyethylene Glycol (Polyethylene Glycol 3350 17 Gm Powd.Pack) 17 gm PO DAILY PRN PRN Reason: constipation Last Admin: 07/12/22 08:51 Dose: 17 gm Documented By: ZINA Sodium Chloride (0.9 % Sodium Chloride Flush 3 Ml Syringe) 3 ml IVFLUSH QSHIFT [facility] Last Admin: 07/13/22 07:56 Dose: Not Given Documented By: ZINA Non-Admin Reason: IV Running Zolpidem Tartrate (Zolpidem Tartrate 5 Mg Tablet) 5 mg PO BEDTIME PRN PRN Reason: Insomnia Last Admin: 07/12/22 22:10 Dose: 5 mg Documented By: JAZIEL Labs CBC & Chem 7: 07/13/22 06:01 07/13/22 06:01 Labs: Laboratory Results - last 24 hr 07/13/22 07/13/22 06:01 06:01 MCV 92.6 MCH 31.6 MCHC 34.1 RDW 12.2 Plt Count 214 MPV 9.6 Immature Gran % (Auto) 1.1 H Neut % (Auto) 52.6 Lymph % (Auto) 32.6 [place] % (Auto) 10.0 Eos % (Auto) 3.2 Baso % (Auto) 0.5 Lymph # (Auto) 2.7 [place] # (Auto) 0.8 Eos # (Auto) 0.3 Baso # (Auto) 0.0 Abs Immat Gran (auto) 0.09 H Absolute Neuts (auto) 4.4 Absolute Nucleated RBC 0.000 Nucleated RBC % (auto) 0.0 Anion Gap 14 Estim Creat Clear Calc 75.2 Estimated GFR > 60 Random Glucose 87 Calcium 9.2 Procedures Date of Service Date of Service: 07/13/22 Progress Note: A&P Assessment and plan (1) Right inguinal hernia: Status: Acute Plan Right inguinal hernia repair with mesh followed by drainage of hematoma right groin. Patient with continued abdominal pain and difficulty with ambulation. His wounds are clean and intact without evidence of recurrent hematoma. Hope for discharge over the weekend Time Spent With Patient Time: Total time spent is greater than 50% in coordination of care (as documented) at patient's floor/unit and/or counseling patient: Quality Stroke Does the patient have a stroke diagnosis?: No VTE Prior VTE?: No VTE Risk Level:: Surgical - moderate VTE Device Contraindication: N/A - Device Ordered VTE Drug Contraindication: Treatment Not Indicated (hematoma post op)
[2022-07-13] MEDS: Apixaban 5 MG TABLET PO ×2 (08:59→21:20)
[2022-07-13 11:19] VITALS: BP 121/59; PULSE 57; RESP 16; TEMP 37.5; O2SAT 93
[2022-07-13 15:31] VITALS: BP 126/66; PULSE 65; RESP 17; TEMP 37.4; O2SAT 94
[2022-07-13] MEDS: 0.9 % Sodium Chloride Flush 3 ML SYRINGE IVFLUSH ×2 (16:04→21:20)
[2022-07-13 20:00] VITALS: BP 142/79; PULSE 70; RESP 17; TEMP 36.3; O2SAT 94
[2022-07-13] MEDS: Morphine Sulfate 2 MG/ML CARTRIDGE 5 MG IVPUSH (21:29)
[2022-07-14] VITALS (7 sets, daily range): BP systolic 111–140; BP diastolic 59–80; PULSE 62–80; RESP 15–20; TEMP 36.4–37.2; O2SAT 92–95
[2022-07-14] MEDS: oxyCODONE HCl Immed Release 5 MG TABLET 10 MG PO (05:25)
--- NOTE | 2022-07-14 09:26 | PM.PNGS ---
Subjective Subjective Date of Service: 07/14/22 Interval history: Patient reports having a bad night with increased abdominal pain in the right groin. Was unable to sleep during the night. Feels the pain medications are not holding him. Physical Exam Vital Signs: Vital Signs: Last Vital Signs Temp 98.9 F 07/14/22 07:32 Pulse 68 07/14/22 07:32 Resp 18 07/14/22 07:32 BP 140/72 H 07/14/22 07:32 Pulse Ox 95 07/14/22 07:32 O2 Del Method 07/14/22 07:32 O2 Flow Rate 4 07/09/22 13:37 BMI result Body Mass Index 23.8 Const: General: cooperative and no acute distress Nutritional Appearance: thin Orientation/consciousness: patient oriented x3 Limitations: no limitations HEENT: Head: Yes normocephalic and Yes atraumatic Resp: Effort & Inspection: normal respiratory effort, no audible wheezes, no cough and no respiratory distress GI: Other: No change in the ecchymosis in the right lower quadrant. Scrotal swelling is much improved. Tender to palpation around the incision but no evidence of hernia recurrence or of recurrent hematoma. Skin: Other: Warm, dry, no rash; ecchymosis as noted above Neuro: General: patient oriented x3 Extrem: Other: No pedal edema Objective Data Active Medications Acetaminophen (Acetaminophen 325 Mg Tablet) 650 mg PO Q6H PRN PRN Reason: Pain, Mild (Pain Scale 1-3) Albuterol Sulfate (Albuterol Sulfate 90 Mcg 8 Gm Inhaler) 2 puff INHALE Q4H PRN PRN Reason: Wheezing Amiodarone HCl (Amiodarone Hcl 200 Mg Tablet) 200 mg PO DAILY [facility] Last Admin: 07/13/22 08:22 Dose: 200 mg Documented By: ZINA Apixaban (Apixaban 5 Mg Tablet) 5 mg PO BID [facility] Last Admin: 07/13/22 21:20 Dose: 5 mg Documented By: ADINA Carvedilol (Carvedilol 3.125 Mg Tablet) 3.125 mg PO BID [facility]; Protocol Last Admin: 07/13/22 21:20 Dose: 3.125 mg Documented By: ADINA Diazepam (Diazepam 5 Mg Tablet) 5 mg PO BID PRN PRN Reason: Anxiety Last Admin: 07/13/22 21:29 Dose: 5 mg Documented By: ADINA Ondansetron HCl (Ondansetron Hcl 4 Mg/2 Ml Vial) 4 mg IVPUSH Q8H PRN PRN Reason: Nausea and Vomiting Oxycodone HCl (Oxycodone Hcl Immed Release 15 Mg Tablet) 15 mg PO Q4H PRN PRN Reason: Pain, Severe (Pain Scale 7-10) Oxycodone HCl (Oxycodone Hcl Immed Release 5 Mg Tablet) 5 mg PO Q4H PRN PRN Reason: Pain, Moderate (Pain Scale 4-6 Polyethylene Glycol (Polyethylene Glycol 3350 17 Gm Powd.Pack) 17 gm PO DAILY PRN PRN Reason: constipation Last Admin: 07/12/22 08:51 Dose: 17 gm Documented By: ZINA Sodium Chloride (0.9 % Sodium Chloride Flush 3 Ml Syringe) 3 ml IVFLUSH QSHIFT [facility] Last Admin: 07/13/22 21:20 Dose: 3 ml Documented By: ADINA Zolpidem Tartrate (Zolpidem Tartrate 5 Mg Tablet) 5 mg PO BEDTIME PRN PRN Reason: Insomnia Last Admin: 07/12/22 22:10 Dose: 5 mg Documented By: JAZIEL Labs CBC & Chem 7: 07/13/22 06:01 07/13/22 06:01 Procedures Date of Service Date of Service: 07/14/22 Progress Note: A&P Assessment and plan (1) Right inguinal hernia: Status: Acute Plan 61-year-old male patient status post repair of a right inguinal hernia with mesh, drainage of a hematoma postoperatively. Patient continues to have incisional pain. Will increase the oxycodone and stop the morphine which does not seem to help. Patient now on apixaban with no evidence of recurrent hematoma. Encouraged out of bed and ambulation. Anticipate discharge either Saturday or Saturday if adequate pain control. Time Spent With Patient Time: Total time spent is greater than 50% in coordination of care (as documented) at patient's floor/unit and/or counseling patient: Quality Stroke Does the patient have a stroke diagnosis?: No VTE Prior VTE?: No VTE Risk Level:: Surgical - moderate VTE Device Contraindication: N/A - Device Ordered VTE Drug Contraindication: Treatment Not Indicated (hematoma post op)
[2022-07-14] MEDS: Amiodarone HCL 200 MG TABLET PO (10:12)
[2022-07-14] MEDS: carvediloL 3.125 MG TABLET PO ×2 (10:13→20:22)
[2022-07-14] MEDS: 0.9 % Sodium Chloride Flush 3 ML SYRINGE IVFLUSH ×2 (10:13→15:48)
[2022-07-14] MEDS: Apixaban 5 MG TABLET PO ×2 (10:13→20:22)
[2022-07-14] MEDS: diazePAM 5 MG TABLET PO ×2 (10:16→20:22)
[2022-07-14] MEDS: oxyCODONE HCl Immed Release 15 MG TABLET PO ×3 (10:26→20:22)
[2022-07-15] MEDS: 0.9 % Sodium Chloride Flush 3 ML SYRINGE IVFLUSH ×4 (00:22→20:43)
[2022-07-15] MEDS: oxyCODONE HCl Immed Release 15 MG TABLET PO ×4 (00:22→20:47)
[2022-07-15 04:00] VITALS: BP 126/68; PULSE 74; RESP 17; TEMP 36.6; O2SAT 94
[2022-07-15 08:00] VITALS: BP 136/65; PULSE 80; RESP 18; TEMP 37.2; O2SAT 92
[2022-07-15] MEDS: diazePAM 5 MG TABLET 10 MG PO ×2 (08:53→20:42)
[2022-07-15] MEDS: Lidocaine 4 % Patch ADH..PATCH 1 PATCH TRANSDERMA (08:55)
[2022-07-15] MEDS: carvediloL 3.125 MG TABLET PO ×2 (08:55→20:42)
[2022-07-15] MEDS: Apixaban 5 MG TABLET PO ×2 (08:55→22:06)
[2022-07-15] MEDS: Amiodarone HCL 200 MG TABLET PO (08:55)
--- NOTE | 2022-07-15 09:09 | P.PNGS_ITS ---
Subjective Subjective Date of Service: 07/15/22 Interval history: I feeling some is trying to cut out my kidney the right side, reports severe pain in the right flank away from the abdominal incision. Normally takes diazepam for muscle spasms. Physical Exam Vital Signs: Vital Signs: Last Vital Signs Temp 99.0 F 07/15/22 08:00 Pulse 80 07/15/22 08:00 Resp 18 07/15/22 08:00 BP 136/65 07/15/22 08:00 Pulse Ox 92 07/15/22 08:00 O2 Del Method 07/15/22 08:00 O2 Flow Rate 4 07/09/22 13:37 BMI result Body Mass Index 23.8 Const: General: in distress Nutritional Appearance: thin Orientation/consciousness: patient oriented x3 HEENT: Head: Yes normocephalic and Yes atraumatic Resp: Effort & Inspection: normal respiratory effort GI: Other: Ecchymosis in the right lower quadrant is improved. Incision in the right groin is clean, dry, and intact. No evidence of recurring hematoma after restarting oral anticoagulation. Palpation of the right flank does reveal muscle spasm along the oblique muscles when compared to the left side. Skin: Other: Warm, dry, no rash. Improving ecchymosis right groin Neuro: General: patient oriented x3 Extrem: Other: no edema Objective Data Active Medications Acetaminophen (Acetaminophen 325 Mg Tablet) 650 mg PO Q6H PRN PRN Reason: Pain, Mild (Pain Scale 1-3) Albuterol Sulfate (Albuterol Sulfate 90 Mcg 8 Gm Inhaler) 2 puff INHALE Q4H PRN PRN Reason: Wheezing Amiodarone HCl (Amiodarone Hcl 200 Mg Tablet) 200 mg PO DAILY [facility] Last Admin: 07/15/22 08:55 Dose: 200 mg Documented By: KENAN Apixaban (Apixaban 5 Mg Tablet) 5 mg PO BID [facility] Last Admin: 07/15/22 08:55 Dose: 5 mg Documented By: KENAN Carvedilol (Carvedilol 3.125 Mg Tablet) 3.125 mg PO BID [facility]; Protocol Last Admin: 07/15/22 08:55 Dose: 3.125 mg Documented By: KENAN Diazepam (Diazepam 5 Mg Tablet) 10 mg PO TID PRN PRN Reason: Muscle Spasm, Anxiety Last Admin: 07/15/22 08:53 Dose: 10 mg Documented By: KENAN Lidocaine (Lidocaine 4 % Patch Adh..Patch) 1 patch TRANSDERMA DAILY [facility]; Protocol Last Admin: 07/15/22 08:55 Dose: 1 patch Documented By: KENAN Ondansetron HCl (Ondansetron Hcl 4 Mg/2 Ml Vial) 4 mg IVPUSH Q8H PRN PRN Reason: Nausea and Vomiting Oxycodone HCl (Oxycodone Hcl Immed Release 15 Mg Tablet) 15 mg PO Q4H PRN PRN Reason: Pain, Severe (Pain Scale 7-10) Last Admin: 07/15/22 08:53 Dose: 15 mg Documented By: KENAN Oxycodone HCl (Oxycodone Hcl Immed Release 5 Mg Tablet) 5 mg PO Q4H PRN PRN Reason: Pain, Moderate (Pain Scale 4-6 Polyethylene Glycol (Polyethylene Glycol 3350 17 Gm Powd.Pack) 17 gm PO DAILY PRN PRN Reason: constipation Last Admin: 07/12/22 08:51 Dose: 17 gm Documented By: ZINA Sodium Chloride (0.9 % Sodium Chloride Flush 3 Ml Syringe) 3 ml IVFSH [facility] Last Admin: 07/15/22 08:57 Dose: 3 ml Documented By: KENAN Zolpidem Tartrate (Zolpidem Tartrate 5 Mg Tablet) 5 mg PO BEDTIME PRN PRN Reason: Insomnia Last Admin: 07/12/22 22:10 Dose: 5 mg Documented By: JAZIEL Labs CBC & Chem 7: 07/13/22 06:01 07/13/22 06:01 Procedures Date of Service Date of Service: 07/15/22 Progress Note: A&P Assessment and plan (1) Right inguinal hernia: Status: Acute Assessment and Plan: incisions are clean and intact without evidence of rebleeding. Patient continues to have some tenderness in the incision but is tolerating pain with oral pain medication. physical therapy consultation for home safety evaluation. Patient lives alone and most walk up 2 flights of stairs to get to his apartment. (2) Spasm of abdominal muscles of right side: Status: Acute Assessment and Plan: Increased pain in the right flank as noted above. Findings are suggestive of severe muscle spasm. I will increase the diazepam and request lidocaine patch. Time Spent With Patient Time: Total time spent is greater than 50% in coordination of care (as documented) at patient's floor/unit and/or counseling patient: Quality Stroke Does the patient have a stroke diagnosis?: No VTE Prior VTE?: No VTE Risk Level:: Surgical - moderate VTE Device Contraindication: N/A - Device Ordered VTE Drug Contraindication: Treatment Not Indicated (hematoma post op)
[2022-07-15 11:49] VITALS: BP 118/69; PULSE 70; RESP 18; TEMP 36.7; O2SAT 92
--- NOTE | 2022-07-15 15:53 | MHC.CM.PN ---
IMM 07/15 DELIVERED COPY IN CHART
[2022-07-15 16:00] VITALS: BP 125/65; PULSE 74; RESP 15; TEMP 37.1; O2SAT 92
[2022-07-15 20:00] VITALS: BP 129/69; PULSE 78; RESP 15; TEMP 36.4; O2SAT 93
[2022-07-15] MEDS: Zolpidem Tartrate 5 MG TABLET PO (20:42)
[2022-07-15 23:38] VITALS: BP 109/65; PULSE 82; RESP 18; TEMP 37.3; O2SAT 95
[2022-07-15] MEDS: Acetaminophen 325 MG TABLET 650 MG PO (23:54)
[2022-07-16 03:22] VITALS: BP 110/64; PULSE 75; RESP 19; TEMP 37.3; O2SAT 94
[2022-07-16] MEDS: oxyCODONE HCl Immed Release 15 MG TABLET PO ×2 (03:30→12:21)
[2022-07-16 06:58] VITALS: BP 109/61; PULSE 69; RESP 18; TEMP 35.5; O2SAT 93
[2022-07-16] MEDS: Amiodarone HCL 200 MG TABLET PO (08:22)
[2022-07-16] MEDS: carvediloL 3.125 MG TABLET PO ×2 (08:22→20:38)
[2022-07-16] MEDS: Apixaban 5 MG TABLET PO ×2 (08:22→20:38)
[2022-07-16] MEDS: oxyCODONE HCl Immed Release 5 MG TABLET PO ×2 (08:22→18:25)
[2022-07-16] MEDS: 0.9 % Sodium Chloride Flush 3 ML SYRINGE IVFLUSH ×2 (08:23→15:20)
[2022-07-16] MEDS: Lidocaine 4 % Patch ADH..PATCH 1 PATCH TRANSDERMA (08:23)
[2022-07-16 10:10] VITALS: BP 109/61; PULSE 69; O2SAT 93
--- NOTE | 2022-07-16 10:16 | PM.PNGS ---
Subjective Subjective Date of Service: 07/16/22 Interval history: c/o pain on incision no GI complaints Physical Exam Vital Signs: Vital Signs: Last Vital Signs Temp 96 F L 07/16/22 06:58 Pulse 69 07/16/22 06:58 Resp 18 07/16/22 06:58 BP 109/61 07/16/22 06:58 Pulse Ox 93 07/16/22 06:58 O2 Del Method 07/16/22 06:58 O2 Flow Rate 4 07/09/22 13:37 BMI result Body Mass Index 23.8 Const: General: no acute distress and well developed Resp: Effort & Inspection: normal respiratory effort Cardio: Rate: regular rate GI: Other: hernia repair site on right cleam, surrounding ecchymosis, no dischrge Objective Data Active Medications Acetaminophen (Acetaminophen 325 Mg Tablet) 650 mg PO Q6H PRN PRN Reason: Pain, Mild (Pain Scale 1-3) Last Admin: 07/15/22 23:54 Dose: 650 mg Documented By: DINAH Albuterol Sulfate (Albuterol Sulfate 90 Mcg 8 Gm Inhaler) 2 puff INHALE Q4H PRN PRN Reason: Wheezing Amiodarone HCl (Amiodarone Hcl 200 Mg Tablet) 200 mg PO DAILY [facility] Last Admin: 07/16/22 08:22 Dose: 200 mg Documented By: SAMIR Apixaban (Apixaban 5 Mg Tablet) 5 mg PO BID [facility] Last Admin: 07/16/22 08:22 Dose: 5 mg Documented By: SAMIR Carvedilol (Carvedilol 3.125 Mg Tablet) 3.125 mg PO BID [facility]; Protocol Last Admin: 07/16/22 08:22 Dose: 3.125 mg Documented By: SAMIR Diazepam (Diazepam 5 Mg Tablet) 10 mg PO TID PRN PRN Reason: Muscle Spasm, Anxiety Last Admin: 07/15/22 20:42 Dose: 10 mg Documented By: DINAH Lidocaine (Lidocaine 4 % Patch Adh..Patch) 1 patch TRANSDERMA DAILY [facility]; Protocol Last Admin: 07/16/22 08:23 Dose: 1 patch Documented By: SAMIR Ondansetron HCl (Ondansetron Hcl 4 Mg/2 Ml Vial) 4 mg IVPUSH Q8H PRN PRN Reason: Nausea and Vomiting Oxycodone HCl (Oxycodone Hcl Immed Release 15 Mg Tablet) 15 mg PO Q4H PRN PRN Reason: Pain, Severe (Pain Scale 7-10) Last Admin: 07/16/22 03:30 Dose: 15 mg Documented By: DINAH Oxycodone HCl (Oxycodone Hcl Immed Release 5 Mg Tablet) 5 mg PO Q4H PRN PRN Reason: Pain, Moderate (Pain Scale 4-6 Last Admin: 07/16/22 08:22 Dose: 5 mg Documented By: SAMIR Polyethylene Glycol (Polyethylene Glycol 3350 17 Gm Powd.Pack) 17 gm PO DAILY PRN PRN Reason: constipation Last Admin: 07/12/22 08:51 Dose: 17 gm Documented By: ZINA Sodium Chloride (0.9 % Sodium Chloride Flush 3 Ml Syringe) 3 ml IVFLUSH QSHIFT [facility] Last Admin: 07/16/22 08:23 Dose: 3 ml Documented By: SAMIR Zolpidem Tartrate (Zolpidem Tartrate 5 Mg Tablet) 5 mg PO BEDTIME PRN PRN Reason: Insomnia Last Admin: 07/15/22 20:42 Dose: 5 mg Documented By: DINAH Labs CBC & Chem 7: 07/13/22 06:01 07/13/22 06:01 Procedures Date of Service Date of Service: 07/16/22 Progress Note: A&P Assessment and plan (1) Right inguinal hernia: Status: Acute Assessment and Plan: s/p repair with postop pain, hematoma pain mgt incision clean ok to get out of bed no GI complaints possible home tomorrow once with better pain control Time Spent With Patient Time: Total time spent is greater than 50% in coordination of care (as documented) at patient's floor/unit and/or counseling patient: Quality Stroke Does the patient have a stroke diagnosis?: No VTE Prior VTE?: No VTE Risk Level:: Surgical - moderate VTE Device Contraindication: N/A - Device Ordered VTE Drug Contraindication: Treatment Not Indicated (hematoma post op)
[2022-07-16 11:13] VITALS: BP 128/59; PULSE 68; RESP 16; TEMP 36.2; O2SAT 92
[2022-07-16 16:00] VITALS: BP 87/52; PULSE 68; RESP 19; TEMP 37.8; O2SAT 94
[2022-07-16 19:49] VITALS: BP 104/57; PULSE 77; RESP 17; TEMP 36.7; O2SAT 94
[2022-07-17] VITALS: BP 109/59; PULSE 70; RESP 17; TEMP 37.1; O2SAT 94
[2022-07-17] MEDS: 0.9 % Sodium Chloride Flush 3 ML SYRINGE IVFLUSH ×3 (00:11→16:01)
[2022-07-17] MEDS: oxyCODONE HCl Immed Release 15 MG TABLET PO ×4 (00:14→20:12)
[2022-07-17 04:00] VITALS: BP 111/62; PULSE 69; RESP 18; TEMP 36.6; O2SAT 97
[2022-07-17 06:52] VITALS: BP 107/64; PULSE 67; RESP 18; TEMP 36.6; O2SAT 96
[2022-07-17] MEDS: Amiodarone HCL 200 MG TABLET PO (07:36)
[2022-07-17] MEDS: Apixaban 5 MG TABLET PO ×2 (07:36→20:10)
[2022-07-17] MEDS: carvediloL 3.125 MG TABLET PO ×2 (07:37→20:10)
[2022-07-17] MEDS: Lidocaine 4 % Patch ADH..PATCH 1 PATCH TRANSDERMA (07:37)
[2022-07-17 11:00] VITALS: BP 117/62; PULSE 64; RESP 18; TEMP 36; O2SAT 94
[2022-07-17 15:49] VITALS: BP 116/57; PULSE 73; RESP 18; TEMP 37.5; O2SAT 94
--- NOTE | 2022-07-17 16:17 | PM.PNGS ---
Subjective Subjective Date of Service: 07/17/22 Interval history: Right flank pain is improved with lidocaine patch. Still having incisional pain in the right groin. He was able to ambulate in the hallway yesterday. Has not gone up and down stairs yet. Physical Exam Vital Signs: Vital Signs: Last Vital Signs Temp 99.5 F 07/17/22 15:49 Pulse 73 07/17/22 15:49 Resp 18 07/17/22 15:49 BP 116/57 L 07/17/22 15:49 Pulse Ox 94 07/17/22 15:49 O2 Del Method 07/17/22 15:49 O2 Flow Rate 4 07/09/22 13:37 BMI result Body Mass Index 23.8 Const: General: in distress Nutritional Appearance: thin Orientation/consciousness: patient oriented x3 HEENT: Head: Yes normocephalic and Yes atraumatic Resp: Effort & Inspection: normal respiratory effort GI: Other: Incision is clean and intact without redness or discharge. Ecchymosis is fading. Less spasm noted in the obliques right side Skin: Other: Warm, dry, no rash. Improving ecchymosis right groin Neuro: General: patient oriented x3 Extrem: Other: no edema Objective Data Active Medications Acetaminophen (Acetaminophen 325 Mg Tablet) 650 mg PO Q6H PRN PRN Reason: Pain, Mild (Pain Scale 1-3) Last Admin: 07/15/22 23:54 Dose: 650 mg Documented By: DINAH Albuterol Sulfate (Albuterol Sulfate 90 Mcg 8 Gm Inhaler) 2 puff INHALE Q4H PRN PRN Reason: Wheezing Amiodarone HCl (Amiodarone Hcl 200 Mg Tablet) 200 mg PO DAILY [facility] Last Admin: 07/17/22 07:36 Dose: 200 mg Documented By: SAMIR Apixaban (Apixaban 5 Mg Tablet) 5 mg PO BID [facility] Last Admin: 07/17/22 07:36 Dose: 5 mg Documented By: SAMIR Carvedilol (Carvedilol 3.125 Mg Tablet) 3.125 mg PO BID [facility]; Protocol Last Admin: 07/17/22 07:37 Dose: 3.125 mg Documented By: SAMIR Diazepam (Diazepam 5 Mg Tablet) 10 mg PO TID PRN PRN Reason: Muscle Spasm, Anxiety Last Admin: 07/15/22 20:42 Dose: 10 mg Documented By: DINAH Lidocaine (Lidocaine 4 % Patch Adh..Patch) 1 patch TRANSDERMA DAILY [facility]; Protocol Last Admin: 07/17/22 07:37 Dose: 1 patch Documented By: SAMIR Ondansetron HCl (Ondansetron Hcl 4 Mg/2 Ml Vial) 4 mg IVPUSH Q8H PRN PRN Reason: Nausea and Vomiting Oxycodone HCl (Oxycodone Hcl Immed Release 15 Mg Tablet) 15 mg PO Q4H PRN PRN Reason: Pain, Severe (Pain Scale 7-10) Last Admin: 07/17/22 16:08 Dose: 15 mg Documented By: CHESTER Oxycodone HCl (Oxycodone Hcl Immed Release 5 Mg Tablet) 5 mg PO Q4H PRN PRN Reason: Pain, Moderate (Pain Scale 4-6 Last Admin: 07/16/22 18:25 Dose: 5 mg Documented By: CHESTER Polyethylene Glycol (Polyethylene Glycol 3350 17 Gm Powd.Pack) 17 gm PO DAILY PRN PRN Reason: constipation Last Admin: 07/12/22 08:51 Dose: 17 gm Documented By: ZINA Sodium Chloride (0.9 % Sodium Chloride Flush 3 Ml Syringe) 3 ml [facility] Last Admin: 07/17/22 16:01 Dose: 3 ml Documented By: CHESTER Zolpidem Tartrate (Zolpidem Tartrate 5 Mg Tablet) 5 mg PO BEDTIME PRN PRN Reason: Insomnia Last Admin: 07/15/22 20:42 Dose: 5 mg Documented By: DINAH Labs CBC & Chem 7: 07/13/22 06:01 07/13/22 06:01 Procedures Date of Service Date of Service: 07/17/22 Progress Note: A&P Assessment and plan (1) Right inguinal hernia: Status: Acute (2) Spasm of abdominal muscles of right side: Status: Acute Plan Patient continues having some difficulty with mobilization following repair of right inguinal hernia mesh, drainage of hematoma postoperatively. Wounds are clean and intact without evidence of hernia recurrence. Muscle spasm in the right flank is much improved with the lidocaine patch. Patient did well with physical therapy yesterday will continue ambulating today. Patient feels he may be ready for discharge tomorrow if he is able to go up and down stairs. Time Spent With Patient Time: Total time spent is greater than 50% in coordination of care (as documented) at patient's floor/unit and/or counseling patient: Quality Stroke Does the patient have a stroke diagnosis?: No VTE Prior VTE?: No VTE Risk Level:: Surgical - moderate VTE Device Contraindication: N/A - Device Ordered VTE Drug Contraindication: Treatment Not Indicated (hematoma post op)
[2022-07-17 19:52] VITALS: BP 139/74; PULSE 75; RESP 19; TEMP 37.3; O2SAT 93
[2022-07-18] VITALS: BP 116/60; PULSE 65; RESP 17; TEMP 37.3; O2SAT 94
[2022-07-18] MEDS: oxyCODONE HCl Immed Release 15 MG TABLET PO ×3 (00:08→15:26)
[2022-07-18] MEDS: 0.9 % Sodium Chloride Flush 3 ML SYRINGE IVFLUSH (00:08)
[2022-07-18 04:00] VITALS: BP 112/60; PULSE 65; RESP 17; TEMP 36.6; O2SAT 95
[2022-07-18 06:46] VITALS: BP 110/60; PULSE 70; RESP 18; TEMP 36.6; O2SAT 95
--- NOTE | 2022-07-18 09:12 | MHC.CM.PN ---
PLAN IS HOME TODAY WITH NEW [facility] REFERRAL CASE MANAGEMENT FOLLOWING FOR ANY CHANGES IN DC PLAN IMM 07/18 IN CHART
--- NOTE | 2022-07-18 09:23 | W.MHC.F2F ---
Service Date Service Date: 07/18/22 Encounter Date of encounter: 07/18/22 Reasons for Services Signs and symptoms assessed: examination of incision of the right groin, no evidence of ongoing bleeding Reason for penitentiary: wound care, postoperative assessment and/or care and GI/ assessment Reason for physical therapy: home safety and mobility Overseeing Care: Dc Parekh Homebound: Leaving the home is medically contraindicated at this time without the asist of a device and/or another person due th the listed conditions above and below. Reason homebound: unsteady gait / fall risk, leg weakness and weakness related to hospital stay Homebound supporting statement: Patient underwent hernia repair developed hematoma postoperatively, requiring return to the OR. He had a prolong hospitalization due to incisional pain and swelling. Certification: Based on the above findings, I certify that this patient is confined to the home and needs intermittent penitentiary care, physical therapy and/or speech therapy, or continues to need occupational therapy. The patient is under my care, and I have initiated the establishment of the plan of care. The patient will be followed by a physician who will periodically review the plan of care.
[2022-07-18] MEDS: Lidocaine 4 % Patch ADH..PATCH 1 PATCH TRANSDERMA (10:24)
[2022-07-18] MEDS: carvediloL 3.125 MG TABLET PO (10:24)
[2022-07-18] MEDS: Apixaban 5 MG TABLET PO (10:24)
[2022-07-18] MEDS: Amiodarone HCL 200 MG TABLET PO (10:24)
[2022-07-18 10:32] VITALS: BP 110/60; PULSE 70; O2SAT 95
[2022-07-18 11:08] VITALS: BP 126/57; PULSE 70; RESP 16; TEMP 35.5; O2SAT 95
--- NOTE | 2022-07-18 11:33 | PM.PNGS ---
Subjective Subjective Date of Service: 07/18/22 Interval history: Patient making slow improvement with slight decrease in abdominal pain. Continues to have the right flank pain. Physical Exam Vital Signs: Vital Signs: Last Vital Signs Temp 96 F L 07/18/22 11:08 Pulse 70 07/18/22 11:08 Resp 16 07/18/22 11:08 BP 126/57 L 07/18/22 11:08 Pulse Ox 95 07/18/22 11:08 O2 Del Method 07/18/22 11:08 O2 Flow Rate 4 07/09/22 13:37 BMI result Body Mass Index 23.8 Const: General: no acute distress Nutritional Appearance: well nourished Orientation/consciousness: patient oriented x3 Resp: Effort & Inspection: normal respiratory effort, no cough and no respiratory distress GI: Other: Soft, tender in the right groin, decreased ecchymosis. No hematoma identified. Scrotal swelling much improved. Skin: Other: Warm, dry, no rash Neuro: General: patient oriented x3 Objective Data Active Medications Acetaminophen (Acetaminophen 325 Mg Tablet) 650 mg PO Q6H PRN PRN Reason: Pain, Mild (Pain Scale 1-3) Last Admin: 07/15/22 23:54 Dose: 650 mg Documented By: DINAH Albuterol Sulfate (Albuterol Sulfate 90 Mcg 8 Gm Inhaler) 2 puff INHALE Q4H PRN PRN Reason: Wheezing Amiodarone HCl (Amiodarone Hcl 200 Mg Tablet) 200 mg PO DAILY [facility] Last Admin: 07/18/22 10:24 Dose: 200 mg Documented By: CARLO Apixaban (Apixaban 5 Mg Tablet) 5 mg PO BID [facility] Last Admin: 07/18/22 10:24 Dose: 5 mg Documented By: CARLO Carvedilol (Carvedilol 3.125 Mg Tablet) 3.125 mg PO BID [facility]; Protocol Last Admin: 07/18/22 10:24 Dose: 3.125 mg Documented By: CARLO Diazepam (Diazepam 5 Mg Tablet) 10 mg PO TID PRN PRN Reason: Muscle Spasm, Anxiety Last Admin: 07/15/22 20:42 Dose: 10 mg Documented By: DINAH Lidocaine (Lidocaine 4 % Patch Adh..Patch) 1 patch TRANSDERMA DAILY [facility]; Protocol Last Admin: 07/18/22 10:24 Dose: 1 patch Documented By: CARLO Ondansetron HCl (Ondansetron Hcl 4 Mg/2 Ml Vial) 4 mg IVPUSH Q8H PRN PRN Reason: Nausea and Vomiting Oxycodone HCl (Oxycodone Hcl Immed Release 15 Mg Tablet) 15 mg PO Q4H PRN PRN Reason: Pain, Severe (Pain Scale 7-10) Last Admin: 07/18/22 10:29 Dose: 15 mg Documented By: CARLO Oxycodone HCl (Oxycodone Hcl Immed Release 5 Mg Tablet) 5 mg PO Q4H PRN PRN Reason: Pain, Moderate (Pain Scale 4-6 Last Admin: 07/16/22 18:25 Dose: 5 mg Documented By: CHESTER Polyethylene Glycol (Polyethylene Glycol 3350 17 Gm Powd.Pack) 17 gm PO DAILY PRN PRN Reason: constipation Last Admin: 07/12/22 08:51 Dose: 17 gm Documented By: ZINA Sodium Chloride (0.9 % Sodium Chloride Flush 3 Ml Syringe) 3 ml IVFLUSH [facility] Last Admin: 07/18/22 10:25 Dose: Not Given Documented By: CARLO Non-Admin Reason: discharge Zolpidem Tartrate (Zolpidem Tartrate 5 Mg Tablet) 5 mg PO BEDTIME PRN PRN Reason: Insomnia Last Admin: 07/15/22 20:42 Dose: 5 mg Documented By: CASTILJudith Labs CBC & Chem 7: 07/13/22 06:01 07/13/22 06:01 Procedures Date of Service Date of Service: 07/18/22 Progress Note: A&P Assessment and plan (1) Spasm of abdominal muscles of right side: Status: Acute (2) Right inguinal hernia: Status: Acute Plan Patient is making slow improvement is been able to ambulate independently. He will be discharged to home today with follow-up in the office in approximately 1 week. He will be given a prescription for the oxycodone increased dose for the next week. He will need to be weaned down to his usual chronic dose over the next several weeks. He expressed understanding and agrees with the plan. Time Spent With Patient Time: Total time spent is greater than 50% in coordination of care (as documented) at patient's floor/unit and/or counseling patient: Quality Stroke Does the patient have a stroke diagnosis?: No VTE Prior VTE?: No VTE Risk Level:: Surgical - moderate VTE Device Contraindication: N/A - Device Ordered VTE Drug Contraindication: Treatment Not Indicated (hematoma post op)
[2022-07-18 11:50] VITALS: BP 126/57; PULSE 70; O2SAT 95
--- NOTE | 2022-07-23 12:16 | PM.DS ---
DS: Providers Provider Date of Service: 07/18/22 Date of admission: 07/15/22 15:35 Date of discharge: 07/18/22 Primary care physician: Thomas Thomas MD Admitting clinician: Dc Parekh Discharging clinician: Dc Parekh DS: Diagnosis Discharge Diagnosis (1) Spasm of abdominal muscles of right side: Status: Acute (2) Right inguinal hernia: Status: Acute DS: Summary Hospital Course Hospital Course: 61-year-old male patient presenting with a previous history of left inguinal hernia now presenting with a new painful lump in the lower right groin. On examination the lump seems to increase in size with Valsalva maneuvers and reduces with light pressure. CT with the pelvis confirms a fat containing right inguinal hernia with no left inguinal hernia identified. Patient requested repair of this right inguinal hernia and after discussion of the procedure, risks and alternatives, consented to the surgery. He was subsequently taken to the OR on 07/09/2022 for repair of the right inguinal hernia. The hernia was repaired using a PHS mesh. Postoperatively in the recovery room he was noted to have increase in swelling in right groin suggestive of a hematoma. He was subsequently returned to the OR for exploration. In the operating room a large hematoma extending into the scrotal sac was evacuated. A small vein was identified as the bleeding source and ligated. Postoperatively the patient had significant ecchymosis involving the right groin extending into the right scrotum. This was associated with significant amount of discomfort which required a higher than usual amount of pain medication for the next week. Because of the pain as well he was unable to ambulate initially. Physical therapy was consulted to assist in ambulation over the next several days. He was gradually converted from intravenous pain medication to oral pain medication. Swelling and ecchymosis appeared to be gradually improving. On 07/15/2022 he had the sensation of somebody trying to cut out his kidney on the right side. Examination at that time revealed significant muscle spasm along the oblique muscles. A lidocaine patch was added which did provide the patient a significant amount relief. By 07/18/2022 the patient was reasonably comfortable on just oral pain medications. He was tolerating regular diet and was able to ambulate in the hallways independently. He was subsequently discharged to home in stable condition. Discharge instructions were to avoid any lifting greater than 10 lb. He should follow up in the office in approximately 1 week. He was provided a prescription for oxycodone 15 mg q.6 hours p.r.n. for pain (pain scale 7-10). He expressed understanding and agrees with the plan. Status at Discharge Functional status at discharge: independent ambulation Time Spent with Patient Time attestation: Total time spent providing and/or coordinating discharge services: Discharge coordination time: Less than 30 minutes Quality: Safe Use of Opioids Does Pt have an Active Cancer Diagnosis on the Problem List?: No Quality: Stroke Does the patient have a stroke diagnosis?: No Physical Exam Vital Signs: Vital Signs: Last Vital Signs Temp 96 F L 07/18/22 11:08 Pulse 70 07/18/22 11:50 Resp 16 07/18/22 11:08 BP 126/57 L 07/18/22 11:50 Pulse Ox 95 07/18/22 11:50 O2 Del Method 07/18/22 11:08 O2 Flow Rate 4 07/09/22 13:37 BMI result Body Mass Index 23.8 Const: General: no acute distress Nutritional Appearance: well nourished Orientation/consciousness: patient oriented x3 Resp: Effort & Inspection: normal respiratory effort, no cough and no respiratory distress GI: Other: Soft, tender in the right groin, decreased ecchymosis. No hematoma identified. Scrotal swelling much improved. Skin: Other: Warm, dry, no rash Neuro: General: patient oriented x3 DS: Data Data Completed and Pending Completed studies during hospitalization [Text1]: Procedures Control Bleeding in Male Perineum, Open Approach (07/15/22) Drainage of Right Inguinal Region, Open Approach (07/15/22) Supplement Right Inguinal Region with Synthetic Substitute, Open Approach (07/15/22) Discharge Plan Discharge Patient Disposition: Home Health Service Discharge Diagnosis: Right inguinal hernia, post operative hematoma Referrals: Ya MASCORRO [Outside] - 1 Week Thomas Thomas MD [Primary Care Provider] - 1 Week Dc Parekh MD [Physician] - 1 Week Discharge Medications: New oxycodone 15 mg tablet 15 mg PO Q6H PRN (Reason: pain (scale score 7-10)) Qty: 28 0RF Rx Instructions: Partial Fill upon patient request. zolpidem [Ambien] 5 mg tablet 5 mg PO BEDTIME PRN (Reason: insomnia) Qty: 30 0RF lidocaine 4 % adhesive patch,medicated 1 patch topical DAILY PRN (Reason: flank pain) Qty: 30 0RF Continued carvedilol [Coreg] 3.125 mg tablet 3.125 mg PO BID Qty: 180 3RF Rx Instructions: must administer with a meal/food diazepam 5 mg tablet 5 mg PO BID PRN (Reason: Anxiety) albuterol sulfate 90 mcg/actuation HFA aerosol inhaler 2 puff PO Q4-6H PRN (Reason: Wheezing) Eliquis 5 mg tablet 5 mg PO BID Hold Instructions: Resume on 07/10/22. May restart afternoon dose on 07/10/2022 amiodarone 200 mg tablet 200 mg PO DAILY Qty: 30 5RF Rx Instructions: Take 400mg bid x 1 week followed by 200mg daily. Discontinued oxycodone 5 mg tablet 1 tab PO TID PRN (Reason: Pain) Discharge Orders: Discharge Order (Routine); Ordered 07/18/22 Ordered By: Dc Parekh Diet: Advance to usual diet Activity on Discharge: No heavy lifting Stand Alone Forms: Patient Portal Discharge page Activity Restrictions/Additional Instructions: No lifting > 10 pounds for 5 weeks No driving for one week Ice to the incision x 24 hours Remove dressing in 3 days Follow up in office in one week. Care Plan Goals: return to normal activity Health Concerns: pain in the right groin Plan of Treatment: repair of right inguinal hernia, drainage of hematoma Assessment: Right inguinal hernia repair, postoperative hematoma Patient Instructions: Open Herniorrhaphy (DC) Discharge Date/Time: 07/18/22 16:30
== END 2022-07-18 16:30 | disposition home health service (06) | DRG 351 ==
LOC: HO.SSS 15:35 → HO.S3 15:35
PROVIDERS: Admitting Provider Surgery; PCP Internal Medicine; Visit Provider Surgery
PROC: 0YU50JZ Supplement Right Inguinal Region with Synthetic Substitute, Open Approach (ICD-10-PCS; principal; 2022-07-09 07:30)
DX: K40.90 Unilateral inguinal hernia, without obstruction or gangrene, not specified as recurrent (principal); L76.22 Postprocedural hemorrhage of skin and subcutaneous tissue following other procedure; L76.32 Postprocedural hematoma of skin and subcutaneous tissue following other procedure; I10 Essential (primary) hypertension; M62.838 Other muscle spasm; I48.91 Unspecified atrial fibrillation; Z86.19 Personal history of other infectious and parasitic diseases; Z56.0 Unemployment, unspecified; Z87.891 Personal history of nicotine dependence; Z79.01 Long term (current) use of anticoagulants; Z79.899 Other long term (current) drug therapy
CPT/HCPCS: 36415; 80048; 85025; 97116; 97161; C1781; C9088; J0330; J0690; J1100; J1170; J2250; J2270; J2405; J2795; J3010

== ENCOUNTER → 2022-07-26 10:09 | Outpatient (BNVA) | payer MEDICARE, MEDICAID, SELFPAY | PROVIDERS: PCP Internal Medicine; Visit Provider Surgery | DX: Z48.815 Encounter for surgical aftercare following surgery on the digestive system (principal) | CPT/HCPCS: 99212 ==

== ENCOUNTER → 2022-08-10 14:10 | Outpatient (BNVA) | payer MEDICARE, MEDICAID, SELFPAY | PROVIDERS: PCP Internal Medicine; Visit Provider Surgery | DX: K40.90 Unilateral inguinal hernia, without obstruction or gangrene, not specified as recurrent (principal) | CPT/HCPCS: 99212 ==

== ENCOUNTER → 2022-09-17 13:13 | Outpatient (BNVA) | payer MEDICARE, MEDICAID, SELFPAY | PROVIDERS: PCP Internal Medicine; Referring Provider Internal Medicine; Visit Provider Internal Medicine | DX: I49.8 Other specified cardiac arrhythmias (principal); I42.8 Other cardiomyopathies | CPT/HCPCS: 93005; 99212 ==

== ENCOUNTER 2022-09-18 12:38 | Outpatient (REF) | payer MEDICARE, MEDICAID, SELFPAY ==
--- NOTE | ~2022-09-18 | US_ITS ---
EXAMINATION: US SCROTUM CLINICAL INFORMATION: Unilateral inguinal hernia, without obstruction or gangrene, not specified as recurrent. COMPARISON: Scrotal ultrasound dated 03/05/2021. TECHNIQUE: A sonogram of the scrotum was performed assessing marks-scale appearance and color Doppler flow. Spectral Doppler analysis of the arterial and venous flow were performed in the testes bilaterally. FINDINGS: RIGHT: Right testicle measures 3.7 x 1.6 x 3.1 cm, volume 9.7 mL. Mild heterogeneous echotexture seen. No focal testicular parenchymal lesions are visualized. Spectral Doppler analysis of the arterial and venous flow is normal in the right testis. Right epididymal head is normal in size. There is a complex area in epididymal head with increased flow measuring 0.5 x 0.4 x 0.9 cm. There is a complex cystic loculated area near the epididymal tail question loculated hydrocele or fluid measuring 1.9 x 1.2 x 1.5 cm. No right hydrocele or varicocele is seen. Right epididymal Doppler flow is normal. LEFT: Left testicle measures 4.4 x 1.6 x 2.5 cm, volume 9.1 mL. There is mild heterogeneous echotexture. No focal testicular parenchymal lesions are visualized. Spectral Doppler analysis of the arterial and venous flow is normal in the left testis. Left epididymal head is normal in size. There is a left epididymal cyst measuring 0.9 x 0.3 x 0.8 cm. No left hydrocele or varicocele is seen. Left epididymal Doppler flow is normal. There is no hematoma or fluid collection in the right groin area. There are small benign-appearing lymph nodes in the right groin. US/US scrotum IMPRESSION: Mild heterogeneous echotexture of both testes but no focal lesion seen. There is a right epididymal head with increased flow. There is a complex cystic area adjacent to the right epididymal tail question loculated hydrocele of fluid. There is a left epididymal cyst. There is normal vascular flow seen to both testes and epididymis. No hematoma seen in the right groin area. Patient is status post hernia repair.
== END 2022-09-18 12:39 | disposition home or self-care (01) ==
LOC: HO.US 12:38
PROVIDERS: PCP Internal Medicine; Visit Provider Surgery
DX: K40.90 Unilateral inguinal hernia, without obstruction or gangrene, not specified as recurrent (principal)
CPT/HCPCS: 76870

== ENCOUNTER → 2022-09-25 12:35 | Outpatient (BNVA) | payer MEDICARE, MEDICAID, SELFPAY | PROVIDERS: PCP Internal Medicine; Visit Provider Surgery | DX: L76.32 Postprocedural hematoma of skin and subcutaneous tissue following other procedure (principal); Z87.19 Personal history of other diseases of the digestive system | CPT/HCPCS: 99212 ==

== ENCOUNTER 2022-10-25 13:46 | Outpatient (REF) | payer MEDICARE, MEDICAID, SELFPAY ==
[2022-10-25 14:25] LABS: COVID-19 Test Negative (Negative); IDNOW Serial# 55D5AD1C
== END 2022-10-25 13:47 | disposition home or self-care (01) ==
LOC: HO.LAB 13:46
PROVIDERS: Visit Provider Internal Medicine
DX: Z20.822 Contact with and (suspected) exposure to COVID-19 (principal)
CPT/HCPCS: 87635; C9803

== ENCOUNTER → 2022-11-06 09:11 | Outpatient (BNVA) | payer MEDICARE, MEDICAID, SELFPAY | PROVIDERS: PCP Internal Medicine; Visit Provider Surgery | DX: Z13.89 Encounter for screening for other disorder (principal) | CPT/HCPCS: 99212 ==

== ENCOUNTER 2022-11-13 09:00 | Outpatient (REF) | payer MEDICARE, MEDICAID, SELFPAY ==
[2022-11-13 09:14] LABS: MANUAL DIFF FLAG NO
[2022-11-13 09:23] LABS: Basophils Percent Auto 0.6 % (0-2); Eosinophils Absolute Auto 0.1 X10*3/uL (0.0-0.4); Eosinophils Percent Auto 1.7 % (0-4); Hematocrit 48.2 % (42.0-52.0); Imm Gran Abs Auto 0.01 X10*3/uL (0.00-0.03); Imm Gran Pct Auto 0.2 % (0.0-0.4); Lymphocytes Absolute Auto 2.1 X10*3/uL (1.2-4.9); Lymphocytes Percent Auto 32.5 % (20-40); Mean Corpuscular HGB Conc 35.3 g/dl (31.0-36.0); Mean Corpuscular Hemoglobin 31.2 pg (27.0-33.0); Mean Corpuscular Volume 88.4 fL (80.0-98.0); Mean Platelet Volume 8.7 fL (9.4-12.4); Monocytes Absolute Auto 0.7 X10*3/uL (0.1-1.2); Neutrophils Absolute Auto 3.6 x10*3/uL (2.0-8.3); Platelet Count 272 X10*3/uL (160-400); Red Blood Count 5.45 X10*6/uL (4.60-5.80); Red Cell Distribution Width 12.9 % (11.0-16.0); White Blood Count 6.5 X10*3/uL (4.8-10.8)
[2022-11-13 10:00] LABS: Alanine Aminotransferase 24 U/L (0-40); Albumin Level 4.3 g/dL (3.5-5.0); Alkaline Phosphatase 58 U/L (39-117); Anion Gap 11 (12-20); Aspartate Amino Transferase 25 U/L (5-37); Blood Urea Nitrogen 18 mg/dL (9-16); Calcium 9.3 mg/dL (8.4-10.2); Carbon Dioxide 24 mmol/L (22-29); Chloride 106 mmol/L (96-108); Cholesterol 173 mg/dL; Estimated Glomerular Filt Rate > 60; Glucose Fasting 119 mg/dL (60-99); HDL Cholesterol 35 mg/dL; LDL Cholesterol Calculated 123 mg/dl; Potassium 4.1 mmol/L (3.3-5.1); Sodium 137 mmol/L (135-145); Total Protein 6.9 g/dL (6.5-8.0); Triglycerides 78 mg/dL
[2022-11-13 10:18] LABS: Prostate Specific Antigen Scr 1.54 ng/mL (<0.05-4.0)
[2022-11-13 10:33] LABS: Appearance Urine Clear; Color Urine Yellow; Glucose Urine UA Negative (Negative); Leukocyte Esterase Urine Small (1+) (Negative); Nitrite Urine Negative (Negative); PH 5.5 (5.0-9.0); Specific Gravity - Urine 1.025 (1.005-1.025); UMIC TRIGGER UA YES; Urine Blood Negative (Negative); Urine Ketones Negative (Negative); Urine Protein Negative (Neg-Trace)
[2022-11-13 10:35] LABS: Bacteria Urine None Seen (None Seen); Hyaline Casts Urine 0-2 /LPF (0-2); RBC Urine 0-2 /HPF (0-2)
[2022-11-16 15:49] LABS: HCV Log PCR <1.18 NOT DETECTED Log IU/mL (NOT DETECTED); HepC Viral Load <15 NOT DETECTED IU/mL (NOT DETECTED)
== END 2022-11-13 09:01 | disposition home or self-care (01) ==
LOC: HO.LAB 09:00
PROVIDERS: PCP Internal Medicine; Visit Provider Internal Medicine
DX: Z00.00 Encounter for general adult medical examination without abnormal findings (principal); Z12.5 Encounter for screening for malignant neoplasm of prostate; Z86.19 Personal history of other infectious and parasitic diseases
CPT/HCPCS: 36415; 80053; 80061; 81001; 84153; 85025; 87522

== ENCOUNTER 2022-11-16 16:30 | Outpatient (REF) | payer MEDICARE, MEDICAID, SELFPAY ==
--- NOTE | ~2022-11-16 | CT_ITS ---
EXAMINATION: CT PELVIS WITHOUT CONTRAST CLINICAL INFORMATION: Bilateral inguinal hernia without obstruction or gangrene. COMPARISON: CT abdomen pelvis 02/18/2020. TECHNIQUE: Helical scanning was performed with submillimeter collimation through the pelvis. Sagittal and coronal multiplanar 2-D reconstructions were obtained. This CT examination was performed using dose optimization techniques as appropriate, variously including the following: *Automated exposure control *Adjustment of mA and/or kV according to patient size (this includes techniques or standardized protocols for targeted exams where dose is matched to indication/reason for exam; i.e. extremities or head) *Use of iterative reconstruction technique DLP: 319 mGy-cm FINDINGS: A small periumbilical hernia seen containing only fat. The previously seen right inguinal hernia that contained predominantly fat and a loop of small bowel is significantly less apparent on the current study. There is some new soft tissue thickening in this region with only a small amount of fat protruding into the inguinal hernia and no bowel. On the left, there is a small amount of soft tissue density present in the same region without a hernia seen. The visualized bowel is unremarkable. Prostate is upper limits of normal in size. Seminal vesicles unremarkable. No retroperitoneal lymphadenopathy. No free intraperitoneal fluid. Osseous structures are unremarkable. CT/CT pelvis wo IV con IMPRESSION: The previously seen right inguinal hernia is significantly less apparent on the current study with only a small amount of fat protruding into the hernia and no bowel. Some soft tissue density seen in both inguinal regions, which may be secondary to prior surgery. Please correlate with history.
== END 2022-11-16 16:31 | disposition home or self-care (01) ==
LOC: HO.CT 16:30
PROVIDERS: PCP Internal Medicine; Visit Provider Surgery
DX: K40.90 Unilateral inguinal hernia, without obstruction or gangrene, not specified as recurrent (principal)
CPT/HCPCS: 72192

== ENCOUNTER → 2023-01-07 08:49 | Outpatient (BNVA) | payer MEDICARE, MEDICAID, SELFPAY | PROVIDERS: PCP Internal Medicine; Referring Provider Internal Medicine; Visit Provider Internal Medicine | DX: I49.8 Other specified cardiac arrhythmias (principal); I42.8 Other cardiomyopathies | CPT/HCPCS: 93005; 99212 ==

== ENCOUNTER 2023-01-28 12:59 | Outpatient (REF) | payer MEDICARE, MEDICAID, SELFPAY ==
[2023-01-28 14:44] LABS: TSH reflex Free T4 0.57 uIU/mL (0.32-4.0)
== END 2023-01-28 13:00 | disposition home or self-care (01) ==
LOC: HO.LAB 12:59
PROVIDERS: PCP Internal Medicine; Visit Provider Internal Medicine
DX: I49.8 Other specified cardiac arrhythmias (principal)
CPT/HCPCS: 36415; 84443

== ENCOUNTER 2023-02-08 06:03 | Day surgery (SDC) | payer MEDICARE, MEDICAID, SELFPAY ==
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
[2023-02-08 06:06] VITALS: BMI 26.2
[2023-02-08 06:22] VITALS: BP 126/85; PULSE 64; RESP 18; TEMP 36.1; O2SAT 96
[2023-02-08] MEDS: Lactated Ringers 1,000 ML 50 ML IVCONT (06:46)
[2023-02-08 08:27] VITALS: BP 105/54; PULSE 55; RESP 14; TEMP 36.1; O2SAT 99
--- NOTE | 2023-02-08 08:31 | PM.OP ---
Brief Operative Note Date of Service: 02/08/23 Pre-op diagnosis: Screening Post-op diagnosis: other (Rectal polyp) Procedure: Colonoscopy to the cecum and TI with bx/removal of polyp Surgeon: Geoff Vera Anesthesia: MAC Was an [employer] used for this Procedure?: No Estimated blood loss (mL): 2.0 Pathology: other (A. Rectal polyp) Condition: stable Disposition: PACU
[2023-02-08 08:42] VITALS: BP 119/60; PULSE 66; RESP 16; O2SAT 95
[2023-02-08 08:57] VITALS: BP 131/80; PULSE 68; RESP 18; TEMP 36.1; O2SAT 98
--- NOTE | 2023-02-08 20:36 | OP_ITS ---
DATE OF SERVICE: 02/08/2023 SURGEON: Geoff Vera MD INDICATIONS: The patient presents for evaluation of colorectal cancer screening. Full consent has been obtained from him for this, including risks of bleeding and perforation. PREOPERATIVE DIAGNOSIS: Colorectal cancer screening. POSTOPERATIVE DIAGNOSIS: PROCEDURE PERFORMED: Colonoscopy to the cecum and terminal ilium with biopsy and removal of polyp. ESTIMATED BLOOD LOSS: COMPLICATIONS: ANESTHESIA: Medication used, monitored anesthesia care. ASSISTANTS: SPECIMENS: POSTOPERATIVE DIAGNOSES: Colorectal cancer screening, small colon polyp, mild diverticulosis, and small internal hemorrhoids. DESCRIPTION OF PROCEDURE: The patient was placed in the left lateral decubitus position. The digital rectal exam revealed no abnormalities. The Olympus video pediatric colonoscope was entered into the rectum and advanced easily to the cecum. once in the cecum, I did identify a normal-appearing cecal pouch with appendiceal orifice and a normal-appearing ileocecal valve. The terminal ilium was cannulated and appeared normal. The scope was withdrawn back in the colon. The entire cecum and ileocecal valve appeared normal. The scope was slowly withdrawn assessing all mucosal surface carefully. Preparation was excellent. There was a mild amount of sigmoid diverticulosis. I did not visualize any sign of colitis nor angiodysplasia. In the rectum, there was an approximately 4 mm polyp, which was biopsied and completely removed with a cold biopsy forceps. The scope was retroflexed visualizing internal hemorrhoids, but no other pathology. The rectal mucosa appeared normal. Scope was straightened out, withdrawn from the patient. He tolerated the procedure well and was returned to the recovery area in stable condition. IMPRESSION: 1. Small rectal polyp. 2. Mild diverticulosis. 3. Small internal hemorrhoids. PLAN: The results of the pathology will be checked. If this is a tubular adenoma, I would recommend a repeat colonoscopy in 5 years. If it is only hyperplasia, I would recommend a followup colonoscopy in 10 years. I did advise him to see me for followup in regard to the previous history of hepatitic C at which point he would need a followup liver ultrasound and laboratories. He will otherwise see me on a p.r.n. basis. He was advised not to use any aspirin or NSAIDs for 1 week. Geoff Vera MD RMW/[facility] / [id number]
== END 2023-02-08 09:20 | disposition home or self-care (01) ==
PROVIDERS: PCP Internal Medicine; Visit Provider Internal Medicine
PROC: 0DJD8ZZ Inspection of Lower Intestinal Tract, Via Natural or Artificial Opening Endoscopic (ICD-10-PCS; CPT 45378; principal; 2023-02-08 07:30)
DX: Z12.11 Encounter for screening for malignant neoplasm of colon (principal); D12.8 Benign neoplasm of rectum; K57.30 Diverticulosis of large intestine without perforation or abscess without bleeding; K64.8 Other hemorrhoids; B18.2 Chronic viral hepatitis C; I10 Essential (primary) hypertension; I49.1 Atrial premature depolarization; J45.909 Unspecified asthma, uncomplicated; Z79.01 Long term (current) use of anticoagulants; Z79.899 Other long term (current) drug therapy; Z85.51 Personal history of malignant neoplasm of bladder; Z87.891 Personal history of nicotine dependence
CPT/HCPCS: 45380; 88305

== ENCOUNTER 2023-06-24 16:55 | Emergency (ER) | payer MEDICARE, MEDICAID, SELFPAY ==
[2023-06-24 17:03] VITALS: BP 114/82; PULSE 104; RESP 16; TEMP 36.9; O2SAT 95; BMI 24.3
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
--- NOTE | 2023-06-24 17:57 | MHC.EDTECH ---
Urine collected and sent to lab
[2023-06-24 18:01] LABS: Appearance Urine Clear; Color Urine Yellow; Glucose Urine UA Negative (Negative); Leukocyte Esterase Urine Negative (Negative); Nitrite Urine Negative (Negative); Specific Gravity - Urine 1.025 (1.005-1.025); Urine Blood Negative (Negative); Urine Ketones Negative (Negative); Urine Protein Negative (Neg-Trace)
== END 2023-06-24 18:45 | disposition home or self-care (01) ==
PROVIDERS: Physician Assistant; Emergency Provider Student in an Organized Health Care Education/Training Program; PCP Internal Medicine
DX: N48.1 Balanitis (principal); Z79.899 Other long term (current) drug therapy
CPT/HCPCS: 36415; 81003; 87255; 99282; 99283

== ENCOUNTER 2023-06-28 19:34 | Emergency (ER) | payer MEDICARE, MEDICAID, SELFPAY ==
--- NOTE | ~2023-06-28 | XR_ITS ---
EXAMINATION: XR CHEST CLINICAL INFORMATION: Shortness of breath and cough COMPARISON: Previous chest x-ray most recent January 2022 TECHNIQUE: 2 views of the chest were obtained. FINDINGS: No significant abnormality is noted involving the heart, lungs, mediastinum, bony thorax or soft tissues. XR/XR chest 2V IMPRESSION: Unremarkable examination.
[2023-06-28 19:48] VITALS: BP 140/78; PULSE 102; RESP 16; TEMP 37.3; O2SAT 96; BMI 24.1
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
[2023-06-28 20:18] LABS: IDNOW Serial# BCCEAD1C
[2023-06-28 20:19] LABS: COVID-19 Test Negative (Negative)
[2023-06-28 20:30] VITALS: BP 138/80; PULSE 106; O2SAT 95
--- NOTE | 2023-06-28 21:47 | PC.NURSE ---
pt resting in bed , no cough ,no sob ,eye closed
[2023-06-28] MEDS: Metoclopramide HCl 10 MG TABLET PO (23:11)
[2023-06-28] MEDS: Ketorolac Tromethamine 30 MG/ML VIAL IM (23:11)
[2023-06-28 23:30] VITALS: PULSE 88; O2SAT 98
== END 2023-06-28 23:55 | disposition home or self-care (01) ==
PROVIDERS: Physician Assistant Medical; Emergency Provider Emergency Medicine; PCP Internal Medicine
DX: B34.9 Viral infection, unspecified (principal); R51.9 Headache, unspecified; R05.9 Cough, unspecified; R06.02 Shortness of breath; M79.10 Myalgia, unspecified site; Z20.822 Contact with and (suspected) exposure to COVID-19; Z20.828 Contact with and (suspected) exposure to other viral communicable diseases
CPT/HCPCS: 71046; 87635; 96372; 99284; J1885

== ENCOUNTER 2023-07-02 10:05 | Outpatient (AMB) | payer MEDICARE, MEDICAID, SELFPAY ==
[2023-07-02 10:09] VITALS: BP 100/68; PULSE 76; BMI 23.8
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
== END 2023-07-02 10:34 | disposition home or self-care (01) ==
PROVIDERS: PCP Internal Medicine; Referring Provider Internal Medicine; Visit Provider Internal Medicine
DX: I49.8 Other specified cardiac arrhythmias (principal); I42.8 Other cardiomyopathies
CPT/HCPCS: 93010; 99214

== ENCOUNTER → 2023-07-02 10:05 | Outpatient (BNVA) | payer MEDICARE, MEDICAID, SELFPAY | PROVIDERS: PCP Internal Medicine; Referring Provider Internal Medicine; Visit Provider Internal Medicine | DX: I49.8 Other specified cardiac arrhythmias (principal); I42.8 Other cardiomyopathies; Z79.899 Other long term (current) drug therapy | CPT/HCPCS: 93005; 99212 ==

== ENCOUNTER 2023-07-16 10:33 | Outpatient (REF) | payer MEDICARE, SELFPAY ==
[2023-07-16 11:00] LABS: MANUAL DIFF FLAG NO
[2023-07-16 12:06] LABS: Basophils Absolute Auto 0.1 X10*3/uL (0.0-0.2); Basophils Percent Auto 1.1 % (0-2); Eosinophils Absolute Auto 0.2 X10*3/uL (0.0-0.4); Eosinophils Percent Auto 3.4 % (0-4); Hematocrit 47.3 % (42.0-52.0); Hemoglobin 16.1 g/dl (14.0-18.0); Imm Gran Abs Auto 0.01 X10*3/uL (0.00-0.03); Imm Gran Pct Auto 0.2 % (0.0-0.4); Lymphocytes Absolute Auto 2.2 X10*3/uL (1.2-4.9); Lymphocytes Percent Auto 34.2 % (20-40); Mean Corpuscular Hemoglobin 31.2 pg (27.0-33.0); Mean Corpuscular Volume 91.7 fL (80.0-98.0); Mean Platelet Volume 9.1 fL (9.4-12.4); Monocytes Absolute Auto 0.7 X10*3/uL (0.1-1.2); Monocytes Percent Auto 11.4 % (2-11); Neutrophils Absolute Auto 3.2 x10*3/uL (2.0-8.3); Neutrophils Percent Auto 49.7 % (45-73); Platelet Count 251 X10*3/uL (160-400); Red Blood Count 5.16 X10*6/uL (4.60-5.80); Red Cell Distribution Width 12.5 % (11.0-16.0); White Blood Count 6.5 X10*3/uL (4.8-10.8)
[2023-07-16 12:11] LABS: Prothrombin Time 11.9 SEC (11.1-13.3)
[2023-07-16 12:46] LABS: Alanine Aminotransferase 14 U/L (0-40); Alkaline Phosphatase 56 U/L (39-117); Aspartate Amino Transferase 16 U/L (5-37); Bilirubin Direct 0.1 mg/dL (0.0-0.5); Bilirubin Total 0.3 mg/dL (0.0-1.0); Total Protein 6.8 g/dL (6.5-8.0)
[2023-07-17 12:24] LABS: Alpha Fetoprotein 1.1 ng/mL (<6.1)
[2023-07-22 00:58] LABS: FIB-ALT 10 U/L (9-46); FIB-Alpha-2-Macroglobulin 223 mg/dL (106-279); FIB-Apolipoprotein A1 140 mg/dL (94-176); FIB-GGT 12 U/L (3-70); FIB-Haptoglobin 64 mg/dL (43-212); FIB-Total Bilirubin 0.3 mg/dL (0.2-1.2); Liver Fibrosis Score 0.26; Liver Fibrosis Stage F0-F1; Nec Inflam Act Grade A0; Nec Inflam Act Score 0.02
== END 2023-07-16 10:34 | disposition home or self-care (01) ==
LOC: HO.LAB 10:33
PROVIDERS: PCP Internal Medicine; Visit Provider Internal Medicine
DX: K74.00 Hepatic fibrosis, unspecified (principal); Z86.19 Personal history of other infectious and parasitic diseases
CPT/HCPCS: 36415; 80076; 81596; 82105; 85025; 85610

== ENCOUNTER 2023-07-22 10:18 | Outpatient (AMB) | payer MEDICARE, SELFPAY ==
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
== END 2023-07-22 11:11 | disposition home or self-care (01) ==
PROVIDERS: PCP Internal Medicine; Visit Provider Urology
DX: Z11.3 Encounter for screening for infections with a predominantly sexual mode of transmission (principal); C67.9 Malignant neoplasm of bladder, unspecified; Z12.5 Encounter for screening for malignant neoplasm of prostate; N48.1 Balanitis; Z13.9 Encounter for screening, unspecified
CPT/HCPCS: 99214

== ENCOUNTER → 2023-07-22 10:18 | Outpatient (BNVA) | payer MEDICARE, MEDICAID, SELFPAY | PROVIDERS: PCP Internal Medicine; Visit Provider Urology | DX: Z11.3 Encounter for screening for infections with a predominantly sexual mode of transmission (principal); Z12.5 Encounter for screening for malignant neoplasm of prostate; C67.9 Malignant neoplasm of bladder, unspecified; N48.1 Balanitis | CPT/HCPCS: 81003; 99212 ==

== ENCOUNTER 2023-08-13 08:52 | Outpatient (REF) | payer MEDICARE, MEDICAID, SELFPAY ==
--- NOTE | ~2023-08-13 | US_ITS ---
EXAMINATION: US COMPLETE ABDOMEN WITH LIVER ELASTOGRAPHY CLINICAL INFORMATION: Hepatitis C; hepatic fibrosis. COMPARISON: None available. TECHNIQUE: Real-time imaging of the abdominal viscera. Noninvasive ultrasound liver fibrosis assessment is performed using David ElastPQ point quantification shear wave elastography (2D-SWE) with a C5-2 MHz transducer. Multiple elastography samples are obtained. FINDINGS: PANCREAS: Normal. The visualized pancreatic head and body are normal in appearance. The remainder of the pancreas is obscured from visualization by the overlying bowel gas. ABDOMINAL AORTA: The proximal, middle, and distal aortic segments are normal in caliber. There are distal atherosclerotic calcifications. INFERIOR VENA CAVA: Visualized portions are normal. LIVER: The liver demonstrates normal size, contour and mildly heterogeneous echogenicity. No focal lesion or intrahepatic biliary duct dilatation. The right lobe measures 14.0 cm in length. The left lobe measures 9.0 cm in length. Portal flow is towards the liver (hepatopetal). Shear wave liver elastography median stiffness is 1.94 m/s (reference: normal median stiffness is 1.3 m/s or less). IQR/median stiffness to assess sampling precision is 0.09 (reference: good quality data set is IQR/median stiffness of 0.15 or less). GALLBLADDER: Normal. The gallbladder is physiologically distended without evidence of stones, sludge, polyps, wall thickening or pericholecystic fluid. COMMON BILE DUCT: Normal in caliber measuring 0.6 cm in diameter. RIGHT KIDNEY: Normal. No hydronephrosis. No renal calculi or focal parenchymal lesions. The kidney measures 10.5 cm in maximum dimension. LEFT KIDNEY: There are persistent lobulations. No hydronephrosis. No renal calculi or focal parenchymal lesions. The kidney measures 10.8 cm in maximum dimension. SPLEEN: Normal. The spleen measures 8.9 cm in maximum dimension. FREE FLUID: None. US/US abdomen comp w elastography IMPRESSION: 1. There is mild generalized increase in hepatic echotexture, consistent with fatty infiltration or hepatocellular disease. Please correlate clinically. No focal hepatic mass or intrahepatic biliary dilatation is seen. 2. Liver elastography: Measurements are suggestive of compensated advanced chronic liver disease but need further test for confirmation. REFERENCE: Society of Radiologists in Ultrasound Liver Stiffness Thresholds (2020): LIVER STIFFNESS THRESHOLDS: *Liver Stiffness equal or less than 1.3 m/s: High probability of being normal. *Liver Stiffness less than 1.7 m/s: In the absence of other known clinical signs, rules out compensated advanced chronic liver disease. *Liver Stiffness 1.7-2.1 m/s: Suggestive of compensated advanced chronic liver disease but need further test for confirmation. *Liver Stiffness over 2.1 m/s: Rules in compensated advanced chronic liver disease. *Liver Stiffness over 2.4 m/s: Suggestive of clinically significant portal hypertension. QUALITY OF DATA SET: *IQR/Median value equal or less than 0.15 implies a quality data set. *IQR/Median value over 0.15 implies a poor quality data set. SIGNIFICANT CHANGE FROM PRIOR EXAM: Significant change if liver stiffness measurement is 10% or greater from prior exam. OTHER CONSIDERATIONS: The stage of liver fibrosis may be overestimated in the setting of acute hepatitis, liver inflammation, elevated liver function tests, hepatic vascular congestion, obstructive cholestasis, non-fasting state, and infiltrative diseases such as amyloidosis and lymphoma. In some patients with NAFLD, the liver stiffness thresholds for compensated advanced chronic liver disease may be lower. In causes other than viral hepatitis and NAFLD, liver stiffness thresholds are not well established.
== END 2023-08-13 08:53 | disposition home or self-care (01) ==
LOC: HO.US 08:52
PROVIDERS: PCP Internal Medicine; Visit Provider Internal Medicine
DX: Z86.19 Personal history of other infectious and parasitic diseases (principal)
CPT/HCPCS: 76705; 76981

== ENCOUNTER 2023-09-11 08:26 | Outpatient (REF) | payer MEDICARE, MEDICAID, SELFPAY ==
--- NOTE | ~2023-09-11 | US_ITS ---
EXAMINATION: US RETROPERITONEAL LIMITED (RENAL ONLY) CLINICAL INFORMATION: Malignant neoplasm of bladder, unspecified. COMPARISON: Ultrasound abdomen complete with elastography 08/13/2023. CT abdomen and pelvis 02/17/2022. Ultrasound abdomen complete 12/29/2020. TECHNIQUE: Real-time imaging of the kidneys. FINDINGS: RIGHT KIDNEY: 10.1 x 3.8 x 5.1 cm (SAG x AP x TRV). The kidney is normal in size, contour, and echogenicity. Renal cortical thickness is normal. No calculi or focal parenchymal lesions. No hydronephrosis. LEFT KIDNEY: 10.9 x 5.7 x 5.3 cm (SAG x AP x TRV). The kidney is normal in size, contour, and echogenicity. Renal cortical thickness is normal. No calculi or focal parenchymal lesions. No hydronephrosis. There is calcified vessels seen in the lower pole US/US renal BI IMPRESSION: Unremarkable kidneys
[2023-09-11 11:06] LABS: Syphilis Screen Nonreactive (Nonreactive)
[2023-09-11 11:10] LABS: PSA,Total (Free>4and<10) 1.17 ng/mL (0.00-4.00)
[2023-09-13 05:38] LABS: Herpes Simplex Type 1 IgG 1.69 index; Herpes Simplex Type 2 IgG 2.13 index
== END 2023-09-11 08:27 | disposition home or self-care (01) ==
LOC: HO.US 08:26
PROVIDERS: PCP Internal Medicine; Visit Provider Urology
DX: Z12.5 Encounter for screening for malignant neoplasm of prostate (principal); C67.9 Malignant neoplasm of bladder, unspecified; Z20.2 Contact with and (suspected) exposure to infections with a predominantly sexual mode of transmission
CPT/HCPCS: 36415; 76775; 84153; 86695; 86696; 86780

== ENCOUNTER 2023-09-27 09:01 | Outpatient (AMB) | payer MEDICARE, SELFPAY ==
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
== END 2023-09-27 11:13 | disposition home or self-care (01) ==
PROVIDERS: PCP Internal Medicine; Visit Provider Urology
DX: Z85.51 Personal history of malignant neoplasm of bladder (principal); Z13.9 Encounter for screening, unspecified
CPT/HCPCS: 52000

== ENCOUNTER → 2023-09-27 09:01 | Outpatient (BNVA) | payer MEDICARE, SELFPAY | PROVIDERS: PCP Internal Medicine; Visit Provider Urology | DX: C67.9 Malignant neoplasm of bladder, unspecified (principal); N48.1 Balanitis | CPT/HCPCS: 52000; 81003 ==

== ENCOUNTER 2023-12-06 10:05 | Outpatient (REF) | payer MEDICARE, SELFPAY ==
[2023-12-06 10:27] LABS: MANUAL DIFF FLAG NO
[2023-12-06 11:10] LABS: Basophils Absolute Auto 0.1 X10*3/uL (0.0-0.2); Basophils Percent Auto 0.8 % (0-2); Eosinophils Absolute Auto 0.2 X10*3/uL (0.0-0.4); Eosinophils Percent Auto 2.3 % (0-4); Hematocrit 46.9 % (42.0-52.0); Hemoglobin 16.1 g/dl (14.0-18.0); Imm Gran Abs Auto 0.02 X10*3/uL (0.00-0.03); Imm Gran Pct Auto 0.3 % (0.0-0.4); Lymphocytes Absolute Auto 2.4 X10*3/uL (1.2-4.9); Lymphocytes Percent Auto 36.2 % (20-40); Mean Corpuscular HGB Conc 34.3 g/dl (31.0-36.0); Mean Corpuscular Hemoglobin 30.9 pg (27.0-33.0); Monocytes Absolute Auto 0.7 X10*3/uL (0.1-1.2); Monocytes Percent Auto 10.8 % (2-11); Neutrophils Absolute Auto 3.3 x10*3/uL (2.0-8.3); Neutrophils Percent Auto 49.6 % (45-73); Platelet Count 208 X10*3/uL (160-400); Red Blood Count 5.21 X10*6/uL (4.60-5.80); Red Cell Distribution Width 12.6 % (11.0-16.0); White Blood Count 6.6 X10*3/uL (4.8-10.8)
[2023-12-06 11:40] LABS: Alanine Aminotransferase 11 U/L (0-40); Albumin Level 4.3 g/dL (3.5-5.0); Alkaline Phosphatase 74 U/L (39-117); Anion Gap 11 (12-20); Aspartate Amino Transferase 21 U/L (5-37); Bilirubin Total 0.8 mg/dL (0.0-1.0); Blood Urea Nitrogen 22 mg/dL (9-16); Calcium 9.5 mg/dL (8.4-10.2); Carbon Dioxide 28 mmol/L (22-29); Chloride 104 mmol/L (96-108); Cholesterol 152 mg/dL (<200); Estimated Glomerular Filt Rate > 60; Glucose Fasting 91 mg/dL (60-99); HDL Cholesterol 35 mg/dL (>40); LDL Cholesterol Calculated 106 mg/dL (<100); Potassium 3.9 mmol/L (3.3-5.1); Sodium 139 mmol/L (135-145); Total Protein 6.9 g/dL (6.5-8.0); Triglycerides 57 mg/dL (<150)
== END 2023-12-06 10:06 | disposition home or self-care (01) ==
LOC: HO.LAB 10:05
PROVIDERS: PCP Internal Medicine; Visit Provider Internal Medicine
DX: Z12.5 Encounter for screening for malignant neoplasm of prostate (principal); R00.0 Tachycardia, unspecified; M54.2 Cervicalgia; Z86.19 Personal history of other infectious and parasitic diseases
CPT/HCPCS: 36415; 80053; 80061; 84153; 85025

== ENCOUNTER 2024-01-02 09:42 | Outpatient (AMB) | payer MEDICARE, SELFPAY ==
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
[2024-01-02 10:28] VITALS: BP 92/66; PULSE 86; BMI 24.1
== END 2024-01-02 10:47 | disposition home or self-care (01) ==
PROVIDERS: PCP Internal Medicine; Visit Provider Internal Medicine
DX: I49.8 Other specified cardiac arrhythmias (principal); I42.8 Other cardiomyopathies
CPT/HCPCS: 99214

== ENCOUNTER → 2024-01-02 09:42 | Outpatient (BNVA) | payer MEDICARE, MEDICAID, SELFPAY | PROVIDERS: PCP Internal Medicine; Visit Provider Internal Medicine | DX: I49.8 Other specified cardiac arrhythmias (principal); I42.8 Other cardiomyopathies | CPT/HCPCS: 99212 ==

== ENCOUNTER → 2024-01-27 12:51 | Outpatient (REF) | payer MEDICARE, SELFPAY ==
--- NOTE | 2024-01-27 12:55 | CA_ITS ---
Transthoracic Echocardiogram Patient (Last, First, Middle): Jv Lora A Gender: Male Date of : 1960 Age: 63 Procedure Date: 01/27/2024 Procedure Type: Transthoracic Echocardiogram Location: OP Height: 165.1 cm Weight: 63.5 kg BSA: 1.70 m2 Heart Rate: 118 bpm BP: 118 / 78 mmHg Colors Custodian: SHAKEEL Referring MD: Chris Weldon MD Sustainability Analyst: Idris Tinoco MD Symptoms: I49.8 - Other specified cardiac arrhythmias Study Quality: Adequate ECG Rhythm: Tachycardia, Undetermined Conclusions: - 1. Moderate to severe reduction LV ejection fraction of 30-35% 2. Moderately reduced RV systolic function 3. Normal cardiac valvular Dopplers 4. Normal RV systolic pressure 5. No pericardial effusion Findings Left Ventricle Normal left ventricular cavity size. There is normal left ventricular wall thickness. The left ventricular systolic function is moderate to severely decreased. The visually estimated ejection fraction is between 30-35%. Diastolic function is indeterminate on the basis of available data. Right Ventricle Normal right ventricular cavity size. There is moderately decreased right ventricular systolic function. Atria Both atria are normal in size. Interatrial shunt cannot be excluded. Aortic Valve Normal aortic valve structure and function. There is no aortic valve stenosis. There is no aortic valve regurgitation. Mitral Valve Normal mitral valve structure and function. There is trace mitral valve regurgitation. There is no mitral valve stenosis. Pulmonic Valve The pulmonic valve is likely normal. Tricuspid Valve Normal tricuspid valve structure. There is trace tricuspid valve regurgitation. The right ventricular systolic pressure is normal. The right ventricular systolic pressure is 17 mmHg. Normal right atrial pressure. There is no evidence of pulmonary hypertension. Great Vessels All visible segments of the aorta are normal in size. The pulmonary artery was not well visualized. Venous The inferior vena cava is normal in size and collapses greater than 50% with inspiration. Pericardium/Pleural There is no evidence of pericardial effusion. Prior Study Comparison Changes noted compared to prior study dated: 09/05/2021. LV systolic function is reduced Measurements 2D Linear Measurements IVSd: 0.82 0.6-0.9/0.6-1.0 cm LVIDd: 4.46 3.9-5.3/4.2-5.9 cm LVIDd Index: 2.62 2.4-3.2/2.2-3.1 cm/m2 LVIDs: 3.70 2.0-3.6 cm LVPWd: 0.83 0.7-1.1 cm LA Diam: 2.60 2.7-3.8/3.0-4.0 cm LAIDs Index: 1.53 1.5-2.3 cm/m2 LV Mass: 145.66 67-162/88-224 g LV Mass Index: 85.68 43-95/49-115 g/m2 LVOT Diam: 2.00 3.0+(-)1.3 cm 2D Systolic Function EF 4C: 33.60 >55% EF 2C: 33.30 >55% EF BiP: 32.20 >55% Mitral Valve MV Pk E: 0.76 MV PK A: 0.67 E/A: 1.10 Aortic Valve AoV Pk Gurwinder: 1.00 AoV Pk Grad: 4.00 KURT: 2.82 LVOT LVOT Pk Gurwinder: 0.90 LVOT Mn Gurwinder: 0.61 LVOT VTI: 0.12 LVOT Pk Grad: 3.00 LVOT Mn Grad: 2.00 LVOT Diam: 2.00 LVOT Area: 3.14 Diastolic Function MV Pk E: 0.76 MV Pk A: 0.67 E/A: 1.10 Right Ventricle TAPSE (mm): 12.60 Tricuspid Valve TR Pk Gurwinder: 1.85 TR Pk Grad: 14.00 RA Press: 3.00 RVSP: 17.00 Great Vessels Aorta Sinus of Valsalva: 2.50 2.0-3.5 cm Ao Asc: 2.80 2.1-3.4 cm Pulmonary Valve PV Pk Gurwinder: 0.98 Peak PV Grad: 4.00 Updated in Other Vendor System with Status of Final Idris Tinoco MD electronically signed on 01/28/2024 2:59:05 PM with status of Final
--- NOTE | 2024-01-27 12:55 | HM_ITS ---
Conclusion: 1. Baseline was with average heart of 111 beats per minute on the tachycardic side 2. Frequent sinus tachycardia noted 3. No significant pauses noted next 4. Frequent PACs noted with total burden of 4.4% with frequent supraventricular tachycardia runs, suggestive atrial tachycardia, longest lasting 19 minutes and 39 seconds with the fastest heart rate of 142 beats per minute 4. No patient reported events MTDD
== END ==
LOC: HO.CARD 12:51
PROVIDERS: PCP Internal Medicine; Visit Provider Internal Medicine
DX: R00.2 Palpitations (principal); I49.8 Other specified cardiac arrhythmias; I42.8 Other cardiomyopathies
CPT/HCPCS: 93242; 93306

== ENCOUNTER → 2024-01-27 12:55 | Outpatient (BNV) | payer MEDICARE, SELFPAY | PROVIDERS: PCP Internal Medicine; Visit Provider Internal Medicine Cardiovascular Disease | DX: R00.0 Tachycardia, unspecified (principal); I49.1 Atrial premature depolarization | CPT/HCPCS: 93244; 93306 ==

== ENCOUNTER 2024-02-17 13:45 | Outpatient (AMB) | payer MEDICARE, SELFPAY ==
[2024-02-17 14:06] VITALS: BP 122/68; PULSE 89; O2SAT 99; BMI 23.5
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
== END 2024-02-17 14:40 | disposition home or self-care (01) ==
LOC: HO.HCS 13:45
PROVIDERS: PCP Internal Medicine; Visit Provider Internal Medicine
DX: I49.8 Other specified cardiac arrhythmias (principal); I42.8 Other cardiomyopathies
CPT/HCPCS: 93010; 99214

== ENCOUNTER → 2024-02-17 13:45 | Outpatient (BNVA) | payer MEDICARE, SELFPAY | PROVIDERS: PCP Internal Medicine; Visit Provider Internal Medicine | DX: I49.8 Other specified cardiac arrhythmias (principal); I42.8 Other cardiomyopathies | CPT/HCPCS: 93005; 99212 ==

== ENCOUNTER 2024-05-21 14:54 | Outpatient (AMB) | payer MEDICARE, SELFPAY ==
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
[2024-05-21 15:12] VITALS: BP 122/70; PULSE 114; BMI 24.1
== END 2024-05-21 15:28 | disposition home or self-care (01) ==
PROVIDERS: PCP Internal Medicine; Visit Provider Internal Medicine
DX: I49.8 Other specified cardiac arrhythmias (principal); I42.8 Other cardiomyopathies
CPT/HCPCS: 93010; 99214

== ENCOUNTER → 2024-05-21 14:54 | Outpatient (BNVA) | payer MEDICARE, SELFPAY | PROVIDERS: PCP Internal Medicine; Visit Provider Internal Medicine | DX: I49.8 Other specified cardiac arrhythmias (principal); I42.8 Other cardiomyopathies; I49.1 Atrial premature depolarization | CPT/HCPCS: 93005; 99212 ==

== ENCOUNTER 2024-08-04 09:23 | Outpatient (AMB) | payer MEDICARE, SELFPAY ==
[2024-08-04 10:25] VITALS: BP 110/68; PULSE 131; BMI 25.0
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
== END 2024-08-04 11:00 | disposition home or self-care (01) ==
PROVIDERS: PCP Internal Medicine; Visit Provider Internal Medicine
DX: I47.10 Supraventricular tachycardia, unspecified (principal); I42.8 Other cardiomyopathies
CPT/HCPCS: 93010; 99214

== ENCOUNTER → 2024-08-04 09:23 | Outpatient (BNVA) | payer MEDICARE, SELFPAY | PROVIDERS: PCP Internal Medicine; Visit Provider Internal Medicine | DX: I47.10 Supraventricular tachycardia, unspecified (principal); I42.8 Other cardiomyopathies | CPT/HCPCS: 93005; 99212 ==

== ENCOUNTER 2024-11-13 14:13 | Outpatient (AMB) | payer MEDICARE, SELFPAY ==
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
== END 2024-11-13 14:41 | disposition home or self-care (01) ==
PROVIDERS: PCP Internal Medicine; Visit Provider Urology
DX: Z85.51 Personal history of malignant neoplasm of bladder (principal); R31.9 Hematuria, unspecified; Z13.9 Encounter for screening, unspecified
CPT/HCPCS: 99214

== ENCOUNTER 2024-11-13 14:13 | Outpatient (REF) | payer MEDICARE, SELFPAY ==
[2024-11-13 16:48] LABS: Urine Cytology See Pathology rpt
== END 2024-11-13 14:14 | disposition home or self-care (01) ==
LOC: HO.LAB 14:13
PROVIDERS: PCP Internal Medicine; Visit Provider Urology
DX: R31.9 Hematuria, unspecified (principal); C67.9 Malignant neoplasm of bladder, unspecified; Z85.51 Personal history of malignant neoplasm of bladder
CPT/HCPCS: 81003; 88112; 99212

== ENCOUNTER 2024-12-11 09:15 | Outpatient (REF) | payer MEDICARE, SELFPAY ==
[2024-12-11 09:32] LABS: MANUAL DIFF FLAG NO
[2024-12-11 09:38] LABS: Basophils Absolute Auto 0.1 X10*3/uL (0.0-0.2); Basophils Percent Auto 0.8 % (0-2); Eosinophils Absolute Auto 0.1 X10*3/uL (0.0-0.4); Eosinophils Percent Auto 2.1 % (0-4); Hematocrit 49.1 % (42.0-52.0); Hemoglobin 16.6 g/dl (14.0-18.0); Imm Gran Abs Auto 0.02 X10*3/uL (0.00-0.03); Imm Gran Pct Auto 0.3 % (0.0-0.4); Lymphocytes Absolute Auto 2.5 X10*3/uL (1.2-4.9); Lymphocytes Percent Auto 40.6 % (20-40); Mean Corpuscular HGB Conc 33.8 g/dl (31.0-36.0); Mean Corpuscular Hemoglobin 30.7 pg (27.0-33.0); Mean Corpuscular Volume 90.8 fL (80.0-98.0); Mean Platelet Volume 8.5 fL (9.4-12.4); Monocytes Absolute Auto 0.7 X10*3/uL (0.1-1.2); Monocytes Percent Auto 10.8 % (2-11); Neutrophils Absolute Auto 2.8 x10*3/uL (2.0-8.3); Neutrophils Percent Auto 45.4 % (45-73); Platelet Count 259 X10*3/uL (160-400); Red Blood Count 5.41 X10*6/uL (4.60-5.80); Red Cell Distribution Width 12.9 % (11.0-16.0); White Blood Count 6.1 X10*3/uL (4.8-10.8)
--- OUTSIDE RECORDS SUMMARY | 2024-12-11 09:40 | XMS_ITS ---
Author Organization [facility] Address [address] [place] [address] Care Team Providers Care Diving Instructor Name Role Phone Thomas Thomas MD Primary Care Provider Unavaila Geoff Rdz [phone] REASON FOR VISIT ov recall Encounters Encounter Location Date Provider Diagnosis [facility] [address] [place] [address] 07/16/2023 Geoff Vera PLAN OF TREATMENT No Information
--- OUTSIDE RECORDS SUMMARY | 2024-12-11 09:41 | XMS_ITS | Patient Health Record ---
Author Organization [facility] Address [address] [place] [address] Care Team Providers Care Ream Cutter Name Role Phone Thomas Thomas MD Primary Care Provider Geoff Romano Unavailable [phone] ALLERGIES No Known Allergies REASON FOR REFERRAL No Information MEDICATIONS Medication SIG (Take, Route, Frequency, Duration) Notes Start Date End Date Status Carvedilol 3.125 MG 1 tablet with food O ral Twice a day Active oxyCODONE-Acetaminophen 5-325 MG 1 tablet as needed Orally every 6 hrs Not-Taking Multivitamin Not-Glen ing Aspir-81 Active Albuterol Sulfate HFA 108 (90 Base) MCG/ACT 1 puff as needed Inhalation every 4 hrs Active diazePAM 5mg 1 Orally BID PRN for hand cramps from pinched C-spine nerves Active oxyCODONE HCl 5 MG 1 tablet Orally thre e times a day Active IMMUNIZATIONS Vaccine Route Administration Date Status Comme nts Twinrix IM Intramuscular 07/14/2012 Administered Twinrix IM Intramuscular 11/07/2012 Administered Influenza Unknown 06/28/2016 Administered Influenza Unknown 05/28/2018 Administered Influenza Unknown 06/28/2020 Administered Influenza Unknown 08/29/2022 Administered Influenza Unknown 12/10/2019 Refused Influenza Unknown 05/22/2022 Refused SOCIAL HISTORY Sex Assigned At : Social History Observation Description Sex Assigned At Unknown PROBLEMS Problem Type ICD Code Onset Dates Problem Status W/U Status Risk SNOMED Code Notes Problem Encounter for screening for malignant neoplasm of colon (Z12.11) Active confirmed 899602822 Problem History of adenomatous polyp of colon (Z86.010) Active confirmed 655901388 Problem Diverticulosis of large intestine without perforation or abscess without bleeding (K57.30) Active confirmed Diverticul ar disease of colon (143388812) Problem Chronic hepatitis C (B18.2) Active confirmed 698546633 Problem History of hepatitis C (Z86.19) Active confirmed 57160860481840 Problem Liver fibrosis (K74.00) Active confirmed 87771035 PLAN OF TREATMENT Pending Test Test Name Order Date BUN 01/14/2015 CREATININE 01/14/2015 LIVER PROFILE 02/18/2015 LIVER PROFILE 09/07/2015 LIVER PROFILE 01/14/2015 LIVER PROFILE 12/20/2020 LIVER PROFILE 07/16/2023 LIVER PROFILE 05/22/2022 LIVER PROFILE 11/29/2016 LIVER PROFILE 04/03/2015 CBC w DIFF 02/18/2015 CBC w DIFF 01/14/2015 CBC w DIFF 12/20/2020 CBC w DIFF 07/16/2023 CBC w DIFF 05/22/2022 CBC w DIFF 11/29/2016 CBC w DIFF 04/03/2015 PROTHROMBIN TIME (PT, INR) 01/14/2015 PROTHROMBIN TIME (PT, INR) 12/20/2020 ALPHA-FETOPROTEIN,TUMOR MARKER 7 ALPHA-FETOPROTEIN,TUMOR MARKER 3 ALPHA-FETOPROTEIN,TUMOR MARKER 4 ALPHA-FETOPROTEIN,TUMOR MARKER 2 HEPATITIS C VIRAL LOAD 04/03/2015 HEPATITIS C VIRAL LOAD 11/29/2016 HEPATITIS C VIRAL LOAD 09/07/2015 HEPATITIS C VIRAL LOAD 02/18/2015 HEPATITIS C VIRAL LOAD 01/14/2015 HEPATITIS C VIRAL LOAD 12/20/2020 US ABD 12/20/2020 US ABD 01/24/2012 US LIVER BIOPSY CORE GUIDE 01/24/2012 HCV LIVER FIBROSIS, FIBRO TEST 3 HCV LIVER FIBROSIS, FIBRO TEST 2 Hep C Viral Load 12/20/2020 US abdomen comp w elastography 3 Future Test Test Name Order Date COLONOSCOPY 04/25/2012 COLONOSCOPY 09/26/2022 Insurance Providers Payer Name Payer Address Payer Phone Subscriber Number Group Number Insured Name Patient Relationship to Insured Coverage Start Date Coverage End Date [facility] Medicare Advantage Plan [address] [address] [place] [address] [id number] SAVANNAH BROWN Self - patient is the insured MEDICAL (GENERAL) HISTORY Medical History History ICD Code Denies [place],DM,CVA,renal disease Chronic Hep. C-he has genoty pe 1b, and liver biopsy in 01/2012 revealed a grade 2/4 and stage I-II/IV fibrosis. He did receive his 3 vaccines for the Twin Rx Hep A and Hep B vaccine.---neg. liver U/S and AFP level Spring 2013--started on Harvoni on 03/01/15--finished 8 weeks in 04/2015--neg viral load and normal LFT's in 06/2015, 10/2015, 11/2016, 06/2018, and 11/2019 Bronchitis/asthma HTN Screening colonoscopy in 2011 revealed only hyperplastic polyps that were removed. Anxiety Neck pain from some cervical spine disease--he describes having seen 2 neurosurgeons but they have not recommended surgery Bladder Cancer in 2019--Dr. Schofield, III Glaucoma PAC's/Tachycardia/SVT-sees Sandra Weldon--on Amiodarone---on Eliquis as of the 04/2022 OV and may be having EP studies. As of the 08/2022 OV the EP studies were not done and Eliquis was stopped due to the hematoma from the below hernia surgery Screening colonoscopy 01/2023 with a smal l tubular adenoma removed Cardiac ablation February 2023 --successful Surgical History Surgery Date(Month/Year) Umbilical hernia Testicular torsion Hand surgery Oral surgery 09/01/2015 Left inguinal hernia surgery and then a piece of the mesh had to be removed in 08/2021-Dr. Parekh 02/2021 Right inguinal hernia surger y 06/2022-had to go back to OR on same day for a hematoma
--- OUTSIDE RECORDS SUMMARY | 2024-12-11 09:41 | XMS_ITS ---
Author Organization [facility] Address [address] [place] [address] Care Team Providers Care Die Turner Name Role Phone Thomas Thomas MD Primary Care Provider Geoff Romano Unavailable [phone] ALLERGIES No Known Allergies RESULTS Component Value Reference Range Notes Prothrombin Time INR Reviewed date:07/16/2023 05:52:40 PM Interpretation: Performing Lab:[facility], [address] [place] [id number] Notes/Report: Prothrombin Time 11.9 11.1-13.3 SEC INTERNATIONAL NORM RATIO 1.0 0.9-1.1 INTERNATIONAL NORMALIZED RATIO (INR) REFERENCE RANGES Reference Range For patients not on anticoagulant therapy: 0.9 - 1.1 INR ranges for oral anticoagulant therapy: For prevention and treatment of venous thrombosis and pulmonary embolism: 2.0 - 3.0 For acute myocardial infarction with aspirin therapy: 2.0 - 3.0 For acute myocardial infarction without aspirin therapy: 3.0 - 4.0 For patients with mechanical prosthetic heart valves: 2.5 - 3.5 REASON FOR VISIT Patient presents today for hep c MEDICATIONS Medication SIG (Take, Route, Frequency, Duration) Notes Start Date End Date Status Multivitamin Not-Glen ing Aspir-81 Active Albuterol Sulfate HFA 108 (90 Base) MCG/ACT 1 puff as needed Inhalation every 4 hrs Active diazePAM 5mg 1 Orally BID PRN for hand cramps from pinched C-spine nerves Active oxyCODONE HCl 5 MG 1 tablet Orally thre e times a day Active Carvedilol 3.125 MG 1 tablet with food O ral Twice a day Active oxyCODONE-Acetaminophen 5-325 MG 1 tablet as needed Orally every 6 hrs Not-Taking PROBLEMS Problem Type ICD Code Onset Dates Problem Status W/U Status Risk SNOMED Code Notes Problem History of hepatitis C (Z86.19) Active confirmed [id number] Problem History of adenomatous polyp of colon (Z86.010) Active confirmed 823837627 Problem Liver fibrosis (K74.00) Active confirmed 17416972 VITAL SIGNS BMI 23.66 kg/m2 07/16/2023 Blood pressure systolic 000 mm Hg 07/16/20 23 Blood pressure diastolic 00 mm Hg 023 Height 64.5 in 07/16/2023 Temperature 97.5 degrees Fahrenheit 07/16/20 23 Weight 140 lbs 07/16/2023 Encounters Encounter Location Date Provider Diagnosis [facility] [address] [place] [address] 07/16/2023 Geoff Vera History of hepatitis C Z86.19 ; Liver fibrosis K74.00 and History of adenomatous polyp of colon Z86.010 ASSESSMENTS Encounter Date Diagnosis Assessment Notes Treatment Notes Treatment Clinical Notes 07/16/2023 History of hepatitis C (ICD-10 - Z86.19) 07/16/2023 Liver fibrosis (ICD-10 - K74.00) 07/16/2023 History of adenomatous polyp of colon (ICD-10 - Z86.010) Repeat colonoscopy in 01/2028 PLAN OF TREATMENT Treatment Notes Assessment Notes History of adenomatous polyp of colon Re peat colonoscopy in 01/2028 Pending Test Test Name Order Date LIVER PROFILE 07/16/2023 CBC w DIFF 07/16/2023 ALPHA-FETOPROTEIN,TUMOR MARKER 3 HCV LIVER FIBROSIS, FIBRO TEST 3 US abdomen comp w elastography 3 Next Appt Details Follow Up: 1 Year, Reason: Progress Notes * Examination Category Sub-Category Detail Notes General Examination GENERAL APPEARANCE: pleasant , well nourished, well developed, in no acute distress EYES: sclera non-icteric NECK/THYROID: no cervical lymphade nopathy, neck supple HEART: S1, S2 normal LUNGS: clear to auscultatio n bilaterally ABDOMEN: normal bowel sounds, no guarding or rigidity, no hepatosplenomegaly, no masses palpable, soft, nontender, nondistended. NEUROLOGIC: alert and oriented SKIN: nonjaundiced, no spi thad angiomata. EXTREMITIES: no edema ORAL CAVITY: mucosa moist
[2024-12-11 10:24] LABS: Alanine Aminotransferase 30 U/L (0-40); Albumin Level 4.4 g/dL (3.5-5.0); Alkaline Phosphatase 60 U/L (39-117); Anion Gap 10 (12-20); Aspartate Amino Transferase 29 U/L (5-37); Bilirubin Total 0.5 mg/dL (0.0-1.0); Blood Urea Nitrogen 26 mg/dL (9-16); Calcium 9.4 mg/dL (8.4-10.2); Carbon Dioxide 26 mmol/L (22-29); Chloride 105 mmol/L (96-108); Cholesterol 171 mg/dL (<200); Estimated Glomerular Filt Rate > 60; Glucose Fasting 105 mg/dL (60-99); HDL Cholesterol 36 mg/dL (>40); LDL Cholesterol Calculated 110 mg/dL (<100); Potassium 4.2 mmol/L (3.3-5.1); Sodium 137 mmol/L (135-145); Total Protein 7.5 g/dL (6.5-8.0); Triglycerides 127 mg/dL (<150)
[2024-12-14 17:23] LABS: HCV Log PCR <1.18 NOT DETECTED Log IU/mL (NOT DETECTED); HepC Viral Load <15 NOT DETECTED IU/mL (NOT DETECTED)
== END 2024-12-11 09:16 | disposition home or self-care (01) ==
LOC: HO.LAB 09:15
PROVIDERS: PCP Internal Medicine; Visit Provider Internal Medicine
DX: J45.909 Unspecified asthma, uncomplicated (principal); Z13.6 Encounter for screening for cardiovascular disorders
CPT/HCPCS: 36415; 80053; 80061; 85025; 87522

== ENCOUNTER 2024-12-31 13:54 | Outpatient (AMB) | payer MEDICARE, SELFPAY ==
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
--- OUTSIDE RECORDS SUMMARY | 2024-12-31 16:56 | XMS_ITS | Patient Health Record ---
Author Organization [facility] Address [address] [place] [address] Care Team Providers Care Beet Worker Name Role Phone Thomas Thomas MD Primary Care Provider Geoff Romano Unavailable [phone] Allergies No Known Allergies Reason For Referral No Information Medications Medication SIG (Take, Route, Frequency, Duration) Notes [...] Orally thre e times a day Active Immunizations Vaccine Route Administration Date Status Comme nts Twinrix IM Intramuscular 07/14/2012 Administered Twinrix IM Intramuscular 11/07/2012 Administered Influenza Unknown 06/28/2016 Administered Influenza Unknown 05/28/2018 Administered Influenza Unknown 06/28/2020 Administered Influenza Unknown 08/29/2022 Administered Influenza Unknown 12/10/2019 Refused Influenza Unknown 05/22/2022 Refused Problems Problem Type SNOMED Code ICD Code Onset Dates Problem Status W/U Status Risk Notes Problem [id number] Encounter for screening for malignant neoplasm of colon (Z12.11) Active confirmed Problem 732752501 History of adenomatous polyp of colon (Z86.010) Active confirmed Problem Diverticular disease of colon (013270321) Diverticulosis of large intestine without perforation or abscess without bleeding (K57.30) Active confirmed Problem 455430424 Chronic hepatiti s C (B18.2) Active confirmed Problem 11683428622811 History of hepatitis C (Z86.19) Active confirmed Problem 01125069 Liver fibrosis (K74.00) Active confirmed Plan Of Treatment Pending Test Test Name Order Date BUN 01/14/2015 CREATININE 01/14/2015 LIVER PROFILE 07/16/2023 LIVER PROFILE 12/20/2020 LIVER PROFILE 04/03/2015 LIVER PROFILE 05/22/2022 LIVER PROFILE 11/29/2016 LIVER PROFILE 02/18/2015 LIVER PROFILE 01/14/2015 LIVER PROFILE 09/07/2015 CBC w DIFF 07/16/2023 CBC w DIFF 12/20/2020 CBC w DIFF 04/03/2015 CBC w DIFF 05/22/2022 CBC w DIFF 11/29/2016 CBC w DIFF 02/18/2015 CBC w DIFF 01/14/2015 PROTHROMBIN TIME (PT, INR) 01/14/2015 PROTHROMBIN TIME (PT, INR) 12/20/2020 ALPHA-FETOPROTEIN,TUMOR MARKER 3 ALPHA-FETOPROTEIN,TUMOR MARKER 4 ALPHA-FETOPROTEIN,TUMOR MARKER 2 ALPHA-FETOPROTEIN,TUMOR MARKER 7 HEPATITIS C VIRAL LOAD 09/07/2015 HEPATITIS C VIRAL LOAD 01/14/2015 HEPATITIS C VIRAL LOAD 04/03/2015 HEPATITIS C VIRAL LOAD 12/20/2020 HEPATITIS C VIRAL LOAD 11/29/2016 HEPATITIS C VIRAL LOAD 02/18/2015 US ABD 12/20/2020 US ABD 01/24/2012 US [...] Insured Coverage Start Date Coverage End Date [facility] Medicare Advantage Plan [address] [address] [place] [address] [phone] [id number] SAVANNAH BROWN Self - patient is the insured Medical (General) History Medical History History ICD Code Denies OR,DM,CVA,renal disease Chronic Hep. C-he has genoty pe [...] have not recommended surgery Bladder Cancer in 2018--Dr. Schofield, III Glaucoma PAC's/Tachycardia/SVT-sees Sandra Weldon--on Amiodarone---on [...]
--- OUTSIDE RECORDS SUMMARY | 2024-12-31 16:56 | XMS_ITS ---
Author Organization [facility] Address [address] [place] [address] Care Team Providers Care Wire Bound Box Machine Operator Name Role Phone Thomas Thomas MD Primary Care Provider Unavaila Geoff Rdz [phone] REASON FOR VISIT ov recall Encounters Encounter Location Date Provider Diagnosis [facility] [address] [place] [address] 07/16/2023 Geoff Vera Plan Of Treatment No Information Progress Notes * SAVANNAH HUGGINS ADOB: [birth year] (62 yo M)Acc No.[id number]:07/16/2023 Patient:?SAVANNAH HUGGINS :1960???Age:62 Y???Sex:Male Address:[address] [place] [address] , , [place], [address] * true * Date:? Generated for Elmo marrero/John/eTransmitting on:?12/31/2024 04:56 PM EST
--- OUTSIDE RECORDS SUMMARY | 2024-12-31 16:57 | XMS_ITS ---
Author Organization [facility] Address [address] [place] [address] Care Team Providers Care Director Of Litigation Name Role Phone Thomas Thomas MD Primary Care Provider Geoff Romano Unavailable [phone] Allergies No Known Allergies Results Component Value Reference Range Notes Prothrombin Time INR Reviewed date:07/16/2023 05:52:40 PM Interpretation: Performing Lab:[facility], [address] [place] [phone] Notes/Report: Prothrombin Time 11.9 11.1-13.3 SEC INTERNATIONAL [...] VISIT Patient presents today for hep c Medications Medication SIG (Take, Route, Frequency, Duration) [...] as needed Orally every 6 hrs Not-Taking Problems Problem Type SNOMED Code ICD Code Onset Dates Problem Status W/U Status Risk Notes Problem 15988966437903 History of hepatitis C (Z86.19) Active confirmed Problem 261372720 History of adenomatous polyp of colon (Z86.010) Active confirmed Problem 48935690 Liver fibrosis (K74.00) Active confirmed Vital Signs Temperature 97.5 degrees Fahrenheit 07/16/20 23 Blood pressure systolic 000 mm Hg 07/16/20 23 Blood pressure diastolic 00 mm Hg 023 Height 64.5 in 07/16/2023 Weight 140 lbs 07/16/2023 BMI 23.66 kg/m2 07/16/2023 Encounters Encounter Location Date Provider Diagnosis [facility] [address] [place] [address] 07/16/2023 Geoff Vera History of hepatitis C Z86.19 ; Liver fibrosis K74.00 and History of adenomatous polyp of colon Z86.010 Assessments Encounter Date Diagnosis (ICD Code) Assessment Notes Treatment Notes Treatment Clinical Notes Section Notes 07/16/2023 History of hepatitis C (ICD-10 - Z86.19) Overall, Savannah appears quite well. I did review the results of his recent colonoscopy with him. I advised him of the need for a followup colonoscopy in 2027 due to the finding of a small tubular adenoma. His previous history of chronic hepatitis C and liver disease remains quite stable. He does not have any signs or symptoms of progressive liver disease at this time. I shall schedule him for a followup liver ultrasound, alpha-fetoprote in level, CBC with platelet count, liver profile, PT with INR, and liver fibrosis panel. I did advise him to have these studies done yearly with me. If things remain stable I will plan to see him in one year for a followup office visit. I did advise him to contact me prior to that if he has any problems or questions I can be of assistance with. Savannah was comfortable with this plan. Thank you again for allowing me to participate in Savannah's care. I shall continue to keep you advised of his progress. 07/16/2023 Liver fibrosis (ICD-10 - K74.00) Overall, Savannah appears quite well. I did review the results of his recent colonoscopy with him. I advised him of the need for a followup colonoscopy in 2027 due to the finding of a small tubular adenoma. His previous history of chronic hepatitis C and liver disease remains quite stable. He does not have any signs or symptoms of progressive liver disease at this time. I shall schedule him for a followup liver ultrasound, alpha-fetoprote in level, CBC with platelet count, liver profile, PT with INR, and liver fibrosis panel. I did advise him to have these studies done yearly with me. If things remain stable I will plan to see him in one year for a followup office visit. I did advise him to contact me prior to that if he has any problems or questions I can be of assistance with. Savannah was comfortable with this plan. Thank you again for allowing me to participate in Savannah's care. I shall continue to keep you advised of his progress. 07/16/2023 History of adenomatous polyp of colon (ICD-10 - Z86.010) Repeat colonoscopy in 01/2028 Overall, Savannah appears quite well. I did review the results of his recent colonoscopy with him. I advised him of the need for a followup colonoscopy in 2027 due to the finding of a small tubular adenoma. His previous history of chronic hepatitis C and liver disease remains quite stable. He does not have any signs or symptoms of progressive liver disease at this time. I shall schedule him for a followup liver ultrasound, alpha-fetoprote in level, CBC with platelet count, liver profile, PT with INR, and liver fibrosis panel. I did advise him to have these studies done yearly with me. If things remain stable I will plan to see him in one year for a followup office visit. I did advise him to contact me prior to that if he has any problems or questions I can be of assistance with. Savannah was comfortable with this plan. Thank you again for allowing me to participate in Savannah's care. I shall continue to keep you advised of his progress. Plan Of Treatment Treatment Notes Assessment Notes History of adenomatous polyp of colon Re peat colonoscopy in 01/2028 Pending Test Test Name Order Date LIVER PROFILE 07/16/2023 CBC w DIFF 07/16/2023 ALPHA-FETOPROTEIN,TUMOR MARKER 3 HCV LIVER FIBROSIS, FIBRO TEST 3 US abdomen comp w elastography 3 Next Appt Details Follow Up: 1 Year, Reason: Progress Notes * SAVANNAH HUGGINS ADOB: [birth year] (63 yo M)Acc No.[id number]:07/16/2023 Progress Notes Patient:?SAVANNAH HUGGINS Provider:?Geoff Vera MD :1960???Age:62 Y???Sex:Male Robert e:07/16/2023 Address:[address] [place], [place] [id number] Pcp:Thomas Thomas MD Subjective: * Chief Complaints: * ???Patient presents today fo r hep c * HPI: ???incontinence:? I saw Savannah in followup today in regard to his previous history of chronic hepatitis C, some liver fibrosis, and his personal history of a tubular adenoma of the colon. ?I last saw Savannah in January, at which time he underwent a screening colonoscopy with removal of a small tubular adenoma. He has been Feeling well since that time. He enjoys a good appetite, without any significant heartburn or dysphagia. His bowel movements have been regular, without any signs of bleeding. He denies abdominal pain, jaundice, unintentional weight loss, increasing abdominal girth, edema, pruritus, nor fatigue. * ROS:?General/Constitutional:?Change in appetite?denies.?Chills?denies.?Fatigue?denies.?Ophthalmologic:?Patient denies? Negative..?ENT:?Patient denies?Negative..?Respiratory:?Patient denies?No coughing/hemoptysis..?Cardiovascular:?Patient denies? No chest pain/orthopnea..?Gastrointestinal:?Comments?See HPI for details.?Genitourinary:?Patient denies?No dysuria/hematuria.?Musculoskeletal:?Patient complaining of?Neck pain.?Skin:?Patient denies?No rash/pruritus..?Neurologic:?Patient denies? No headaches/seizures..?Psychiatric:?Patient denies?Negative..? * Medical History:? * Surgical History:?Umbilical hernia Testicular torsion Hand surgery Oral surgery 09/01/2015Left inguinal hernia surgery and then a piece of the mesh had to be removed in 08/2021-Dr. Parekh ight inguinal hernia surgery 06/2022-had to go back to OR on same day for a hematoma * Hospitalization/Major Diagno stic Procedure:? * Family History:?Father: unkn own.?Mother: alive, diagnosed with HTN (hypertension), Diabetes, Heart disease.? Uncle - colon cancer. * Social History:?Tobacco Use:?Tobacco Use/Smoking?Patient is a: former smoker , How long has it been since you last smoked?: 5-10 years.?Drugs/Alcohol:?Alcohol Screen?Points: 0, Interpretation: Negative.?Miscellaneous:?Marital status: , but going through a divorce. Occupation: disabled. ???Nonsmoker since 2011; rare alcohol. Former IVDA-abstinent for 25-30 years. * Medications:?TakingAspir-81 Albuterol Sulfate HFA 108 (90 Base) MCG/ACT Aerosol Solution 1 puff as needed Inhalation every 4 hrsdiazePAM 5mg Tablet 1 Orally BID PRN for hand cramps from pinched C-spine nervesoxyCODONE HCl 5 MG Tablet 1 tablet Orally three times a dayCarvedilol 3.125 MG Tablet 1 tablet with food Oral Twice a dayTaking Aspir-81 Taking Albuterol Sulfate HFA 108 (90 Base) MCG/ACT Aerosol Solution 1 puff as needed Inhalation every 4 hrsTaking diazePAM 5mg Tablet 1 Orally BID PRN for hand cramps from pinched C-spine nervesTaking oxyCODONE HCl 5 MG Tablet 1 tablet Orally three times a dayTaking Carvedilol 3.125 MG Tablet 1 tablet with food Oral Twice a dayNot-Taking/PRNoxyCODONE-Acetaminophen 5-325 MG Tablet 1 tablet as needed Orally every 6 hrsMultivitamin Not-Taking/PRN oxyCODONE-Acetaminophen 5-325 MG Tablet 1 tablet as needed Orally every 6 hrsNot-Taking/PRN Multivitamin DiscontinuedAmiodarone HCl 200 MG Tablet Oral Medication List reviewed and reconciled with the patientDiscontinued Amiodarone HCl 200 MG Tablet Oral Medication List reviewed and reconciled with the patient * Allergies:?N.K.D.A.yes[Aller gies Verified] Objective: * Vitals:?Wt: 140 lbs, Ht: 64. 5 in, BMI:23.66 Index, BP: 000/00 mm Hg, Temp: 97.5. * Examination: ???General Examination: ?GENERAL APPEARANCE:?pleasant, well nourished, well developed, in no acute distress.?EYES:?sclera non-icteric.?ORAL CAVITY:?mucosa moist.?NECK/THYROID:?no cervical lymphadenopathy, neck supple.?SKIN:?nonjaundiced, no spider angiomata..?HEART:?S1, S2 normal.?LUNGS:?clear to auscultation bilaterally.?ABDOMEN:?normal bowel sounds, no guarding or rigidity, no hepatosplenomegaly, no masses palpable, soft, nontender, nondistended..?EXTREMITIES:?no edema.?NEUROLOGIC:?alert and oriented.? Assessment: * Assessment: 1.?Liver fibrosis - K74.00 ( Primary)?2.?History of hepatitis C - Z86.19?3.?History of adenomatous polyp of colon - Z86.010? Overall, Savannah appears quite well. I did review the results of his recent colonoscopy with him. I advised him of the need for a followup colonoscopy in 2027 due to the finding of a small tubular adenoma. His previous history of chronic hepatitis C and liver disease remains quite stable. He does not have any signs or symptoms of progressive liver disease at this time. I shall schedule him for a followup liver ultrasound, alpha-fetoprotein level, CBC with platelet count, liver profile, PT with INR, and liver fibrosis panel. I did advise him to have these studies done yearly with me. If things remain stable I will plan to see him in one year for a followup office visit. I did advise him to contact me prior to that if he has any problems or questions I can be of assistance with. Savannah was comfortable with this plan. Thank you again for allowing me to participate in Savannah's care. I shall continue to keep you advised of his progress. Plan: * Treatment: ? Value Reference Range ?Prothrombin Time 11.9 11.1-1 3.3 - SEC * ?INTERNATIONAL NORM RATIO 1.0 0.9-1.1 - ?Imaging: US abdomen comp w elastography* Sched for 08/13/23 at 9:00 a [facility] Ultrasound Dept 2nd Floor fasting 8 hrs prior * 2.?History of hepatitis C?LAB: LIVER PROFILE ?LAB: CBC w DIFF ?LAB: ALPHA-FETOPROTEIN,TUMOR MARKER ?LAB: HCV LIVER FIBROSIS, FIBRO TEST ?LAB: Prothrombin Time INR* ? Value Reference Range ?Prothrombin Time 11.9 11.1-1 3.3 - SEC * ?INTERNATIONAL NORM RATIO 1.0 0.9-1.1 - ?Imaging: US abdomen comp w elastography* Sched for 08/13/23 at 9:00 a [facility] Ultrasound Dept 2nd Floor fasting 8 hrs prior * 3.?History of adenomatous polyp of colon? Notes: Repeat colonoscopy in 01/2028.?? * Procedure Codes:?3017F COLOR ECTAL CA SCREEN DOC [id number] TOBACCO [id number] BP SCR NOT PRFRM REC REASON NOS * Follow Up:?1 Year * * Sign off status: Completed true * Provider:?Geoff Vera MD Date:? 023 Generated for Elmo marrero/Faxing/eTransmitting on:?12/31/2024 04:56 PM EST History and Physical Notes * HPI (History of Present Illness) Category Sub-Category Detail Notes Category Not es incontinence I saw Savannah in followup today in regard to his previous history of chronic hepatitis C, some liver fibrosis, and his personal history of a tubular adenoma of the colon. I last saw Savannah in January, at which time he underwent a screening colonoscopy with removal of a small tubular adenoma. He has been Feeling well since that time. He enjoys a good appetite, without any significant heartburn or dysphagia. His bowel movements have been regular, without any signs of bleeding. He denies abdominal pain, jaundice, unintentional weight loss, increasing abdominal girth, edema, pruritus, nor fatigue. Examination Category Sub-Category Detail Notes Category Not es General Examination GENERAL APPEARANCE: pleasant , well [...]
== END 2024-12-31 15:21 | disposition home or self-care (01) ==
PROVIDERS: PCP Internal Medicine; Visit Provider Urology
DX: R31.9 Hematuria, unspecified (principal); R82.89 Other abnormal findings on cytological and histological examination of urine; D49.4 Neoplasm of unspecified behavior of bladder; Z85.51 Personal history of malignant neoplasm of bladder
CPT/HCPCS: 99214

== ENCOUNTER → 2024-12-31 13:54 | Outpatient (BNVA) | payer MEDICARE, SELFPAY | PROVIDERS: PCP Internal Medicine; Visit Provider Urology | DX: R31.9 Hematuria, unspecified (principal); R82.89 Other abnormal findings on cytological and histological examination of urine; D49.4 Neoplasm of unspecified behavior of bladder; Z85.51 Personal history of malignant neoplasm of bladder | CPT/HCPCS: 52000; 99212 ==

== ENCOUNTER 2025-01-07 14:22 | Outpatient (REF) | payer MEDICARE, SELFPAY ==
[2025-01-07 15:22] LABS: Blood Urea Nitrogen 23 mg/dL (9-16); Estimated Glomerular Filt Rate > 60
--- OUTSIDE RECORDS SUMMARY | 2025-01-07 18:13 | XMS_ITS ---
Author Organization [facility] Address [address] [place] [address] Care Team Providers Care Tax Compliance Representative Name Role Phone Thomas Thomas MD Primary Care Provider Geoff Romano Unavailable [phone] Allergies No Known Allergies Results Component Value Reference Range Notes Prothrombin Time INR Reviewed date:07/16/2023 05:52:40 PM Interpretation: Performing Lab:[facility], [address] [place] [phone] Notes/Report: Prothrombin Time 11.9 11.1-13.3 SEC INTERNATIONAL [...] Problem Status W/U Status Risk Notes Problem 61604345277164 History of hepatitis C (Z86.19) Active confirmed Problem 951444378 History of adenomatous polyp of colon (Z86.010) Active confirmed Problem 32557008 Liver fibrosis (K74.00) Active confirmed Vital Signs Temperature 97.5 degrees Fahrenheit 07/16/20 23 Blood pressure systolic 000 mm Hg 07/16/20 23 Blood pressure diastolic 00 mm Hg 023 Height 64.5 in 07/16/2023 Weight 140 lbs 07/16/2023 BMI 23.66 kg/m2 07/16/2023 Encounters Encounter Location Date Provider Diagnosis [facility] [address] [place] [address] 07/16/2023 Geoff Vera History of hepatitis C [...] SAVANNAH HUGGINS ADOB: [birth year] (63 yo M)Acc No.[id number]:07/16/2023 Progress Notes Patient:?SAVANNAH HUGGINS Provider:?Geoff Vera MD :1960???Age:62 Y???Sex:Male Robert e:07/16/2023 Address:[address] [place], [place] [id number] Pcp:Thomas Thomas MD Subjective: * Chief Complaints: [...] elastography* Sched for 08/13/23 at 9:00 a [facility] Ultrasound Dept 2nd Floor fasting 8 hrs prior * 2.?History of hepatitis C?LAB: LIVER PROFILE ?LAB: CBC w DIFF ?LAB: ALPHA-FETOPROTEIN,TUMOR MARKER ?LAB: HCV LIVER FIBROSIS, FIBRO TEST ?LAB: Prothrombin Time INR* ? Value Reference Range ?Prothrombin Time 11.9 11.1-1 3.3 - SEC * ?INTERNATIONAL NORM RATIO 1.0 0.9-1.1 - ?Imaging: US abdomen comp w elastography* Sched for 08/13/23 at 9:00 a [facility] Ultrasound Dept 2nd Floor fasting 8 hrs prior * 3.?History of adenomatous polyp of colon? Notes: Repeat colonoscopy in 01/2028.?? * Procedure Codes:?3017F COLOR ECTAL CA SCREEN DOC [id number] TOBACCO NON-[id number] BP SCR NOT PRFRM REC REASON NOS * Follow Up:?1 Year * * Sign off status: Completed true * Provider:?Geoff Vera MD Date:? 023 Generated for Elmo marrero/Faxing/eTransmitting on:?01/07/2025 06:13 PM EDT History and Physical Notes * HPI (History [...]
--- OUTSIDE RECORDS SUMMARY | 2025-01-07 18:13 | XMS_ITS | Patient Health Record ---
Author Organization [facility] Address [address] [place] [address] Care Team Providers Care Fire Protection Engineering Technician Name Role Phone Thomas Thomas MD Primary Care Provider Geoff Romano Unavailable [phone] Allergies No Known Allergies Reason For Referral [...] Problem Status W/U Status Risk Notes Problem 096522478 Encounter for screening for malignant neoplasm of colon (Z12.11) Active confirmed Problem 352413335 History of adenomatous polyp of colon (Z86.010) Active confirmed Problem Diverticular disease of colon (990459792) Diverticulosis of large intestine without perforation or abscess without bleeding (K57.30) Active confirmed Problem 140143157 Chronic hepatiti s C (B18.2) Active confirmed Problem 48782225388878 History of hepatitis C (Z86.19) Active confirmed Problem 40679829 Liver fibrosis (K74.00) Active confirmed Plan Of Treatment Pending Test Test Name Order Date BUN 01/14/2015 CREATININE 01/14/2015 LIVER PROFILE 02/18/2015 LIVER PROFILE 01/14/2015 LIVER PROFILE 09/07/2015 LIVER PROFILE 07/16/2023 LIVER PROFILE 12/20/2020 LIVER PROFILE 04/03/2015 LIVER PROFILE 05/22/2022 LIVER PROFILE 11/29/2016 CBC w DIFF 05/22/2022 CBC w DIFF 11/29/2016 CBC w DIFF 02/18/2015 CBC w DIFF 01/14/2015 CBC w DIFF 07/16/2023 CBC w DIFF 12/20/2020 CBC w DIFF 04/03/2015 PROTHROMBIN TIME (PT, INR) 12/20/2020 PROTHROMBIN TIME (PT, INR) 01/14/2015 ALPHA-FETOPROTEIN,TUMOR MARKER 3 ALPHA-FETOPROTEIN,TUMOR MARKER 4 ALPHA-FETOPROTEIN,TUMOR MARKER 2 ALPHA-FETOPROTEIN,TUMOR MARKER 7 HEPATITIS C VIRAL LOAD 04/03/2015 HEPATITIS C VIRAL LOAD 12/20/2020 HEPATITIS C VIRAL LOAD 11/29/2016 HEPATITIS C VIRAL LOAD 02/18/2015 HEPATITIS C VIRAL LOAD 09/07/2015 HEPATITIS C VIRAL LOAD 01/14/2015 US ABD 12/20/2020 US ABD 01/24/2012 US [...] Insured Coverage Start Date Coverage End Date [facility] Medicare Advantage Plan [address] [address] [place] [address] [id number] SAVANNAH BROWN Self - patient is the insured Medical (General) History Medical History History ICD Code Denies [place],DM,CVA,renal disease Chronic Hep. C-he has genoty pe [...]
--- OUTSIDE RECORDS SUMMARY | 2025-01-07 18:13 | XMS_ITS ---
Author Organization [facility] Address [address] [place] [address] Care Team Providers Care Circus Performer Name Role Phone Thomas Thomas MD Primary Care Provider Unavaila Geoff Rdz [phone] REASON FOR VISIT ov recall Encounters Encounter Location Date Provider Diagnosis [facility] [address] [place] [address] 07/16/2023 Geoff Vera Plan Of Treatment No Information Progress Notes * SAVANNAH HUGGINS ADOB: [birth year] (62 yo M)Acc No.[id number]:07/16/2023 Patient:?SAVANNAH HUGGINS :1960???Age:62 Y???Sex:Male Address:[address] [place] [address] , , [place], [address] * true * Date:? Generated for Elmo marrero/John/eTransmitting on:?01/07/2025 06:13 PM EDT
== END 2025-01-07 14:23 | disposition home or self-care (01) ==
LOC: HO.LAB 14:22
PROVIDERS: PCP Internal Medicine; Visit Provider Urology
DX: R31.9 Hematuria, unspecified (principal); Z85.51 Personal history of malignant neoplasm of bladder
CPT/HCPCS: 36415; 82565; 84520

== ENCOUNTER 2025-01-12 14:12 | Outpatient (REF) | payer MEDICARE, SELFPAY ==
--- NOTE | ~2025-01-12 | CT_ITS ---
CLINICAL HISTORY: Z85.51 - Personal history of malignant neoplasm of bladder CT abdomen and pelvis with and without contrast Comparison: Renal ultrasound from 09/11/2023 Findings: No obstructing stone in either kidney or either ureter. Midline filling defect of the dorsal urinary bladder secondary to prostate gland with prostate gland measuring 4.6 cm transverse. Moderate wall thickening of the urinary bladder is nonspecific by CT. Asymmetry of the imaged ureters in the delayed phase imaging likely related to motion and partial contraction of the ureters, left greater than right. No defined nodularity of the either imaged renal collecting system. No enlarged retroperitoneal lymphadenopathy. Index left periaortic lymph node measures 5 mm short axis (image 25 of series 8). No liver mass by CT. No suspicious pulmonary nodule of the imaged lung bases. The adrenal glands are normal. The spleen is nonenlarged. Gallbladder and pancreas are unremarkable for CT. Calcified and noncalcified plaque involving the imaged aorta and its branches. No small bowel obstruction. Severe stool burden is present, including in the cecum. The imaged appendix is within normal limits (image 54 of series 8). No free intraperitoneal air. Mild osteoarthritis of the hips. Degenerative changes include imaged sacroiliac joints, and imaged spine, including lower lumbar facet arthropathy. IMPRESSION: 1. Moderate wall thickening of the urinary bladder by CT. 2. Asymmetry of the imaged ureters nonspecific and likely due to contraction at the time of the imaging. This document has been electronically signed by: Pablo Plasencia MD on 01/14/2025 03:02:38
[2025-01-12] MEDS: iohexoL 350 MG/ML 100 ML INFUS..BTL IV (15:26)
--- OUTSIDE RECORDS SUMMARY | 2025-01-12 16:58 | XMS_ITS ---
Author Organization [facility] Address [address] [place] [address] Care Team Providers Care Marking Machine Tender Name Role Phone Thomas Thomas MD Primary Care Provider Geoff Romano Unavailable [phone] Allergies No Known Allergies Results Component Value Reference Range Notes Prothrombin Time INR Reviewed date:07/16/2023 05:52:40 PM Interpretation: Performing Lab:[facility], [address] [place] [phone] Notes/Report: Prothrombin Time 11.9 11.1-13.3 SEC INTERNATIONAL [...] Problem Status W/U Status Risk Notes Problem 72057523821666 History of hepatitis C (Z86.19) Active confirmed Problem 956249493 History of adenomatous polyp of colon (Z86.010) Active confirmed Problem 72129715 Liver fibrosis (K74.00) Active confirmed Vital Signs Temperature 97.5 degrees Fahrenheit 07/16/20 23 Blood pressure systolic 000 mm Hg 07/16/20 23 Blood pressure diastolic 00 mm Hg 023 Height 64.5 in 07/16/2023 Weight 140 lbs 07/16/2023 BMI 23.66 kg/m2 07/16/2023 Encounters Encounter Location Date Provider Diagnosis [facility] [address] [place] [address] 07/16/2023 Geoff Vera History of hepatitis C [...] SAVANNAH HUGGINS ADOB: [birth year] (63 yo M)Acc No.[id number]:07/16/2023 Progress Notes Patient:?SAVANNAH HUGGINS Provider:?Geoff Vera MD :1960???Age:62 Y???Sex:Male Robert e:07/16/2023 Address:[address] [place], [place] [id number] Pcp:Thomas Thomas MD Subjective: * Chief Complaints: [...] elastography* Sched for 08/13/23 at 9:00 a [facility] Ultrasound Dept 2nd Floor fasting 8 hrs prior * 2.?History of hepatitis C?LAB: LIVER PROFILE ?LAB: CBC w DIFF ?LAB: ALPHA-FETOPROTEIN,TUMOR MARKER ?LAB: HCV LIVER FIBROSIS, FIBRO TEST ?LAB: Prothrombin Time INR* ? Value Reference Range ?Prothrombin Time 11.9 11.1-1 3.3 - SEC * ?INTERNATIONAL NORM RATIO 1.0 0.9-1.1 - ?Imaging: US abdomen comp w elastography* Sched for 08/13/23 at 9:00 a [facility] Ultrasound Dept 2nd Floor fasting 8 hrs prior * 3.?History of adenomatous polyp of colon? Notes: Repeat colonoscopy in 01/2028.?? * Procedure Codes:?3017F COLOR ECTAL CA SCREEN DOC [id number] TOBACCO [id number]-[id number] BP SCR NOT PRFRM REC REASON NOS * Follow Up:?1 Year * * Sign off status: Completed true * Provider:?Geoff Vera MD Date:? 023 Generated for Elmo marrero/Faxing/eTransmitting on:?01/12/2025 04:58 PM EDT History and Physical Notes * [...]
--- OUTSIDE RECORDS SUMMARY | 2025-01-12 16:58 | XMS_ITS ---
Author Organization [facility] Address [address] [place] [address] Care Team Providers Care Criminal Justice Instructor Name Role Phone Thomas Thomas MD Primary Care Provider Unavaila Geoff Rdz [phone] REASON FOR VISIT ov recall Encounters Encounter Location Date Provider Diagnosis [facility] [address] [place] [address] 07/16/2023 Geoff Vera Plan Of Treatment No Information Progress Notes * SAVANNAH HUGGINS ADOB: [birth year] (62 yo M)Acc No.[id number]:07/16/2023 Patient:?SAVANNAH HUGGINS :1960???Age:62 Y???Sex:Male Address:[address] [place] [address] , , [place], [address] * true * Date:? Generated for Elmo marrero/John/eTransmitting on:?01/12/2025 04:58 PM EDT
--- OUTSIDE RECORDS SUMMARY | 2025-01-12 16:58 | XMS_ITS | Patient Health Record ---
Author Organization [facility] Address [address] [place] [address] Care Team Providers Care Inspector Salvage Name Role Phone Thomas Thomas MD Primary Care Provider Geoff Romano Unavailable [phone] Allergies No Known Allergies Reason For Referral [...] Problem Status W/U Status Risk Notes Problem 134342952 Encounter for screening for malignant neoplasm of colon (Z12.11) Active confirmed Problem 973970932 History of adenomatous polyp of colon (Z86.010) Active confirmed Problem Diverticular disease of colon (430004168) Diverticulosis of large intestine without perforation or abscess without bleeding (K57.30) Active confirmed Problem 180798509 Chronic hepatiti s C (B18.2) Active confirmed Problem 99369818853118 History of hepatitis C (Z86.19) Active confirmed Problem 55027345 Liver fibrosis (K74.00) Active confirmed Plan Of [...] Insured Coverage Start Date Coverage End Date [facility] Medicare Advantage Plan [address] [address] [place] [address] [id number] SAVANNAH BROWN Self - patient is the insured Medical (General) History Medical History History ICD Code Denies [place],DM,CVA,renal disease Chronic Hep. C-he has genoty pe [...]
== END 2025-01-12 14:13 | disposition home or self-care (01) ==
LOC: HO.CT 14:12
PROVIDERS: PCP Internal Medicine; Visit Provider Urology
DX: R31.9 Hematuria, unspecified (principal); Z85.51 Personal history of malignant neoplasm of bladder
CPT/HCPCS: 74178; Q9967

== ENCOUNTER → 2025-01-12 14:14 | Outpatient (BNV) | payer MEDICARE, SELFPAY | PROVIDERS: PCP Internal Medicine; Visit Provider Radiology Neuroradiology | DX: N32.89 Other specified disorders of bladder (principal); Z85.51 Personal history of malignant neoplasm of bladder | CPT/HCPCS: 74178 ==

== ENCOUNTER 2025-02-02 08:47 | Day surgery (SDC) | payer MEDICARE, SELFPAY ==
[2025-01-29 15:42] VITALS: BMI 23.3
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
[2025-02-02] VITALS (9 sets, daily range): BP systolic 101–146; BP diastolic 25–87; PULSE 65–118; RESP 18–20; TEMP 36.1–36.9; O2SAT 95–99
[2025-02-02] MEDS: Lactated Ringers 1,000 ML 100 ML IVCONT (09:35)
--- NOTE | 2025-02-02 10:58 | P.OP_ITS ---
Operative Note Operative Note Date of Service: 02/02/25 Narrative: PREOP DIAGNOSIS: History of bladder cancer, urine cytology abnormal, suspicious for malignancy, bladder lesion POSTOP DIAGNOSIS: History of bladder cancer, urine cytology abnormal, suspicious for malignancy, bladder lesion PROCEDURE: Cystoscopy, transurethral resection and fulguration bladder lesions, bladder biopsy, SURGEON: Quiana Gillette MD ANESTHESIA: General Findings: Erythematous flattened lesions x2 posterior wall- estimated volume 2- 3 cm Details of procedure: The patient was brought into the operating room placed on the OR table in supine position. 2 g of Ancef IV. General anesthesia was administered. The patient was repositioned into lithotomy position, prepped and draped in the usual sterile fashion. Time-out was done per protocol. A 22 fr cystoscope was placed transurethrally into the bladder. The right and left ureteral orifices were visualized. The entire bladder was visualized. There were erythematous flattened lesions x2 posterior wall. Cold cup biopsies were taken, a random biopsy was done from the right lateral wall. The cystoscope was removed and the resectoscope was placed using the roller ball attachment the bladder lesions were fulgurated. Hemostasis was obtained The cystoscope was removed. 2% lidocaine urojet was passed transurethrally into the bladder. Belladonna rectal suppository was administered The patient was brought out of anesthesia and taken to recovery in stable condition. Complications: None EBL: minimal (<5 mL) Drains: None
--- NOTE | 2025-02-02 10:58 | MHC.SHP ---
Pre-Procedural Eval Section A - 24 Hr Update-Section A only Date of Service: 02/02/25 The patient is an INPATIENT: No The patient has been examined within 24 hours of the surgical procedure. The History & Physical has been completed within 30 days and I have reviewed it.: Yes Section B - Complete if H&P > 30 days Chief Complaint: Neoplasm of unspecified behavior of bladder Allergies: Allergies Allergy/AdvReac Type Severity Reaction Status Date / Time No Known Allergies Allergy Verified 01/29/25 15:37 [No Known Allergies*] Plan Diagnosis/Plan: Unchanged I have reviewed the history and physical and performed a pertinent physical examination on my patient. No changes have occurred unless specified. Cystoscopy, transurethral resection bladder tumor, bladder biopsies, fulguration. Time Spent With Patient Time: Total time managing care of this patient today ____ minutes.
[2025-02-02] MEDS: Phenazopyridine HCL 200 MG TABLET PO (12:12)
== END 2025-02-02 13:47 | disposition home or self-care (01) ==
PROVIDERS: PCP Internal Medicine; Visit Provider Urology
PROC: 0TBB8ZZ Excision of Bladder, Via Natural or Artificial Opening Endoscopic (ICD-10-PCS; CPT 52235; principal; 2025-02-02 11:00)
PROC: (CPT 52235; 2025-02-02 11:00)
DX: D09.0 Carcinoma in situ of bladder (principal); Z85.51 Personal history of malignant neoplasm of bladder; R31.9 Hematuria, unspecified; R82.89 Other abnormal findings on cytological and histological examination of urine; I10 Essential (primary) hypertension; I48.91 Unspecified atrial fibrillation; I42.8 Other cardiomyopathies; J45.909 Unspecified asthma, uncomplicated; Z79.899 Other long term (current) drug therapy; Z86.19 Personal history of other infectious and parasitic diseases; Z98.890 Other specified postprocedural states; Z87.891 Personal history of nicotine dependence; Z56.0 Unemployment, unspecified
CPT/HCPCS: 52235; 88305; J0690; J2003; J2704; J3010

== ENCOUNTER → 2025-02-02 08:47 | Outpatient (BNV) | payer MEDICARE, SELFPAY | PROVIDERS: PCP Internal Medicine; Visit Provider Urology | DX: D09.0 Carcinoma in situ of bladder (principal) | CPT/HCPCS: 52235 ==

== ENCOUNTER 2025-03-09 11:07 | Outpatient (AMB) | payer MEDICARE, MEDICAID, SELFPAY ==
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
--- OUTSIDE RECORDS SUMMARY | 2025-03-09 12:37 | XMS_ITS | Patient Health Record ---
Author Organization [facility] Address [address] [place] [address] Care Team Providers Care Nut Tightener Name Role Phone Thomas Thomas MD Primary Care Provider Geoff Romano Unavailable [phone] Allergies No Known Allergies Reason For Referral [...] Problem Status W/U Status Risk Notes Problem [id number] Encounter for screening for malignant neoplasm of colon (Z12.11) Active confirmed Problem 058540868 History of adenomatous polyp of colon (Z86.010) Active confirmed Problem Diverticular disease of colon (721802238) Diverticulosis of large intestine without perforation or abscess without bleeding (K57.30) Active confirmed Problem 574566257 Chronic hepatiti s C (B18.2) Active confirmed Problem [id number] History of hepatitis C (Z86.19) Active confirmed Problem 67820611 Liver fibrosis (K74.00) Active confirmed Plan Of [...] Insured Coverage Start Date Coverage End Date [facility] Medicare Advantage Plan [address] [address] [place] [address] [id number] SAVANNAH BROWN Self - patient is the insured Medical (General) History Medical History History ICD Code Denies NM,DM,CVA,renal disease Chronic Hep. C-he has genoty pe [...]
== END 2025-03-09 12:47 | disposition home or self-care (01) ==
PROVIDERS: PCP Internal Medicine; Visit Provider Urology
DX: R31.9 Hematuria, unspecified (principal); D09.0 Carcinoma in situ of bladder; Z87.891 Personal history of nicotine dependence; C67.9 Malignant neoplasm of bladder, unspecified
CPT/HCPCS: 99214; G2211

== ENCOUNTER → 2025-03-09 11:07 | Outpatient (BNVA) | payer MEDICARE, SELFPAY | PROVIDERS: PCP Internal Medicine; Visit Provider Urology | DX: R31.9 Hematuria, unspecified (principal); C67.9 Malignant neoplasm of bladder, unspecified; D09.0 Carcinoma in situ of bladder; Z87.891 Personal history of nicotine dependence | CPT/HCPCS: 99212 ==

== ENCOUNTER → 2025-03-18 10:31 | Outpatient (BNV) | payer MEDICARE, MEDICAID, SELFPAY | PROVIDERS: Visit Provider Internal Medicine | DX: C67.9 Malignant neoplasm of bladder, unspecified (principal) | CPT/HCPCS: 99204 ==

== ENCOUNTER 2025-04-12 12:35 | Outpatient (AMB) | payer MEDICARE, SELFPAY ==
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
[2025-04-12 13:04] VITALS: BP 124/90; PULSE 109; RESP 14; TEMP 36.6; O2SAT 96; BMI 24.1
[2025-04-12 13:18] VITALS: BP 136/66
--- OUTSIDE RECORDS SUMMARY | 2025-04-12 13:58 | XMS_ITS | Patient Health Record ---
Author Organization [facility] Address [address] [place] [address] Care Team Providers Care Candy Feeder Name Role Phone Thomas Thomas MD Primary Care Provider Geoff Romano Unavailable [phone] Allergies No Known Allergies Reason For Referral [...] Problem Status W/U Status Risk Notes Problem [id number] Encounter for screening for malignant neoplasm of colon (Z12.11) Active confirmed Problem 735885093 History of adenomatous polyp of colon (Z86.010) Active confirmed Problem Diverticular disease of colon (631625702) Diverticulosis of large intestine without perforation or abscess without bleeding (K57.30) Active confirmed Problem 827452711 Chronic hepatiti s C (B18.2) Active confirmed Problem 96636912422785 History of hepatitis C (Z86.19) Active confirmed Problem 47166480 Liver fibrosis (K74.00) Active confirmed Plan Of [...] ALPHA-FETOPROTEIN,TUMOR MARKER 7 HEPATITIS C VIRAL LOAD 11/29/2016 HEPATITIS C VIRAL LOAD 02/18/2015 HEPATITIS C VIRAL LOAD 09/07/2015 HEPATITIS C VIRAL LOAD 01/14/2015 HEPATITIS C VIRAL LOAD 04/03/2015 HEPATITIS C VIRAL LOAD 12/20/2020 US ABD [...] Insured Coverage Start Date Coverage End Date [facility] Medicare Advantage Plan [address] [address] [place] [address] [id number] SAVANNAH BROWN Self - patient is the insured Medical (General) History Medical History History ICD Code Denies CO,DM,CVA,renal disease Chronic Hep. C-he has genoty pe [...]
== END 2025-04-12 13:29 | disposition home or self-care (01) ==
LOC: HO.HMCHD 12:35
PROVIDERS: PCP Internal Medicine; Visit Provider Physician Assistant
DX: I47.10 Supraventricular tachycardia, unspecified (principal); I42.8 Other cardiomyopathies; D09.0 Carcinoma in situ of bladder; M54.2 Cervicalgia; G89.29 Other chronic pain

== ENCOUNTER → 2025-04-12 12:35 | Outpatient (BNVA) | payer MEDICARE, SELFPAY | PROVIDERS: PCP Internal Medicine; Visit Provider Physician Assistant | DX: I47.10 Supraventricular tachycardia, unspecified (principal); I42.8 Other cardiomyopathies; D09.0 Carcinoma in situ of bladder; M54.2 Cervicalgia; G89.29 Other chronic pain; I10 Essential (primary) hypertension; J45.909 Unspecified asthma, uncomplicated; Z79.891 Long term (current) use of opiate analgesic; Z79.899 Other long term (current) drug therapy | CPT/HCPCS: 99202 ==

== ENCOUNTER 2025-07-12 13:07 | Outpatient (AMB) | payer MEDICARE, MEDICAID, SELFPAY ==
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
--- OUTSIDE RECORDS SUMMARY | 2025-07-12 18:13 | XMS_ITS | Patient Health Record ---
Author Organization [facility] Address [address] [place] [address] Care Team Providers Care Construction Executive Name Role Phone Martha (RETIRED) Thomas LARA Primary Care Provide r Unavailable Jody Geoff Unavailable [phone] Allergies No Known Allergies Reason For Referral [...] Problem Status W/U Status Risk Notes Problem 553482328 Encounter for screening for malignant neoplasm of colon (Z12.11) Active confirmed Problem 029333854 History of adenomatous polyp of colon (Z86.010) Active confirmed Problem Diverticular disease of colon (758325950) Diverticulosis of large intestine without perforation or abscess without bleeding (K57.30) Active confirmed Problem 477896012 Chronic hepatiti s C (B18.2) Active confirmed Problem 22012900227775 History of hepatitis C (Z86.19) Active confirmed Problem 37991062 Liver fibrosis (K74.00) Active confirmed Plan Of Treatment Pending Test Test Name Order Date BUN 01/14/2015 CREATININE 01/14/2015 LIVER PROFILE 04/03/2015 LIVER PROFILE 05/22/2022 LIVER PROFILE 11/29/2016 LIVER PROFILE 02/18/2015 LIVER PROFILE 01/14/2015 LIVER PROFILE 09/07/2015 LIVER PROFILE 07/16/2023 LIVER PROFILE 12/20/2020 CBC w DIFF 07/16/2023 CBC w DIFF 12/20/2020 CBC w DIFF 04/03/2015 CBC w DIFF 05/22/2022 CBC w DIFF 11/29/2016 CBC w DIFF 02/18/2015 CBC w DIFF 01/14/2015 PROTHROMBIN TIME (PT, INR) 12/20/2020 PROTHROMBIN TIME (PT, INR) 01/14/2015 ALPHA-FETOPROTEIN,TUMOR MARKER 3 ALPHA-FETOPROTEIN,TUMOR MARKER 4 ALPHA-FETOPROTEIN,TUMOR MARKER 2 ALPHA-FETOPROTEIN,TUMOR MARKER 7 HEPATITIS C VIRAL LOAD 01/14/2015 HEPATITIS C VIRAL LOAD 04/03/2015 HEPATITIS C VIRAL LOAD 12/20/2020 HEPATITIS C VIRAL LOAD 11/29/2016 HEPATITIS C VIRAL LOAD 02/18/2015 HEPATITIS C VIRAL LOAD 09/07/2015 US ABD 01/24/2012 US ABD 12/20/2020 US LIVER BIOPSY CORE GUIDE 01/24/2012 HCV [...] Coverage Start Date Coverage End Date [facility] Medicare Advantage Plan [address] [address] [place] [address] [id number] SAVANNAH BROWN Self - patient is the insured Medical (General) History Medical History History ICD Code Denies DE,DM,CVA,renal disease Chronic Hep. C-he has genoty pe [...]
== END 2025-07-12 14:30 | disposition home or self-care (01) ==
LOC: HO.HUSH 13:08
PROVIDERS: PCP Internal Medicine; Visit Provider Urology
DX: C67.9 Malignant neoplasm of bladder, unspecified (principal); R31.9 Hematuria, unspecified; Z13.9 Encounter for screening, unspecified; Z87.891 Personal history of nicotine dependence
CPT/HCPCS: 52000; 99213

== ENCOUNTER 2025-07-12 13:07 | Outpatient (REF) | payer MEDICARE, MEDICAID, SELFPAY | END 2025-07-12 13:08 | disposition home or self-care (01) | LOC: HO.LAB 13:07 | PROVIDERS: PCP Internal Medicine; Visit Provider Urology | DX: C67.9 Malignant neoplasm of bladder, unspecified (principal); R31.9 Hematuria, unspecified; Z87.891 Personal history of nicotine dependence; Z79.899 Other long term (current) drug therapy | CPT/HCPCS: 52000; 81003; 88112; 99212 ==

== ENCOUNTER 2025-08-03 11:50 | Outpatient (AMB) | payer MEDICARE, SELFPAY ==
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
[2025-08-03 12:35] VITALS: BP 110/62; PULSE 96; BMI 24.4
--- OUTSIDE RECORDS SUMMARY | 2025-08-03 14:55 | XMS_ITS | Patient Health Record ---
Author Organization [facility] Address [address] [place] [address] Care Team Providers Care Relief Master Name Role Phone Martha (RETIRED) Thomas LARA Primary Care Provide r Unavailable Jody Geoff Unavailable [phone] Allergies No Known Allergies Reason For Referral [...] Problem Status W/U Status Risk Notes Problem 629931954 Encounter for screening for malignant neoplasm of colon (Z12.11) Active confirmed Problem 046622677 History of adenomatous polyp of colon (Z86.010) Active confirmed Problem Diverticular disease of colon (511232577) Diverticulosis of large intestine without perforation or abscess without bleeding (K57.30) Active confirmed Problem 332784688 Chronic hepatiti s C (B18.2) Active confirmed Problem 24322255433667 History of hepatitis C (Z86.19) Active confirmed Problem 88539243 Liver fibrosis (K74.00) Active confirmed Plan Of [...] Insured Coverage Start Date Coverage End Date [facility] Medicare Advantage Plan [address] [address] [place] [address] [id number] SAVANNAH BROWN Self - patient is the insured Medical (General) History Medical History History ICD Code Denies GA,DM,CVA,renal disease Chronic Hep. C-he has genoty pe [...]
== END 2025-08-03 12:54 | disposition home or self-care (01) ==
LOC: HO.HCS 11:51
PROVIDERS: PCP Internal Medicine; Visit Provider Internal Medicine
DX: I47.10 Supraventricular tachycardia, unspecified (principal); I42.8 Other cardiomyopathies
CPT/HCPCS: 93010; 99214; G2211

== ENCOUNTER → 2025-08-03 11:50 | Outpatient (BNVA) | payer MEDICARE, SELFPAY | PROVIDERS: PCP Internal Medicine; Visit Provider Internal Medicine | DX: R00.2 Palpitations (principal); I42.8 Other cardiomyopathies; I47.10 Supraventricular tachycardia, unspecified | CPT/HCPCS: 93005; 99212 ==

== ENCOUNTER 2025-08-04 12:47 | Outpatient (REF) | payer MEDICARE, SELFPAY ==
[2025-08-04 13:53] LABS: MANUAL DIFF FLAG NO
[2025-08-04 14:47] LABS: Hematocrit 49.2 % (42.0-52.0); Hemoglobin 16.9 g/dl (14.0-18.0); Imm Gran Abs Auto 0.03 X10*3/uL (0.00-0.03); Imm Gran Pct Auto 0.4 % (0.0-0.4); Lymphocytes Absolute Auto 2.6 X10*3/uL (1.2-4.9); Mean Corpuscular HGB Conc 34.3 g/dl (31.0-36.0); Mean Corpuscular Hemoglobin 30.6 pg (27.0-33.0); Mean Corpuscular Volume 89.1 fL (80.0-98.0); NRBC Abs Auto 0.000 X10*3/uL (0.0-0.012); NRBC Pct Auto 0.0 /100WBC (0.0-0.2); Platelet Count 361 X10*3/uL (160-400); Red Blood Count 5.52 X10*6/uL (4.60-5.80); White Blood Count 7.5 X10*3/uL (4.8-10.8)
[2025-08-04 15:36] LABS: Anion Gap 8 (12-20); Blood Urea Nitrogen 19 mg/dL (9-16); Calcium 9.9 mg/dL (8.4-10.2); Carbon Dioxide 27 mmol/L (22-29); Chloride 107 mmol/L (96-108); Cholesterol 170 mg/dL (<200); Estimated Glomerular Filt Rate > 60; HDL Cholesterol 36 mg/dL (>40); Potassium 4.1 mmol/L (3.3-5.1); Sodium 138 mmol/L (135-145); Triglycerides 67 mg/dL (<150)
== END 2025-08-04 12:48 | disposition home or self-care (01) ==
LOC: HO.LAB 12:47
PROVIDERS: PCP Physician Assistant; Visit Provider Physician Assistant
DX: I42.8 Other cardiomyopathies (principal); I49.8 Other specified cardiac arrhythmias; I10 Essential (primary) hypertension; I47.10 Supraventricular tachycardia, unspecified; D09.0 Carcinoma in situ of bladder; L20.89 Other atopic dermatitis; M54.2 Cervicalgia; G89.29 Other chronic pain
CPT/HCPCS: 36415; 80048; 80061; 84443; 85025; 99212

== ENCOUNTER 2025-08-04 12:47 | Outpatient (AMB) | payer MEDICARE, SELFPAY ==
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
[2025-08-04 12:57] VITALS: BP 110/70; PULSE 110; RESP 16; TEMP 36.1; O2SAT 95; BMI 24.5
== END 2025-08-04 13:28 | disposition home or self-care (01) ==
LOC: HO.HMCHD 12:48
PROVIDERS: PCP Internal Medicine; Visit Provider Physician Assistant
DX: D09.0 Carcinoma in situ of bladder (principal); L20.89 Other atopic dermatitis; I47.10 Supraventricular tachycardia, unspecified; I42.8 Other cardiomyopathies; M54.2 Cervicalgia; G89.29 Other chronic pain

== ENCOUNTER → 2025-08-31 09:53 | Outpatient (REF) | payer MEDICARE, SELFPAY ==
--- NOTE | 2025-08-31 09:56 | CA_ITS ---
Transthoracic Echocardiogram Patient (Last, First, Middle): Jv Lora A Gender: Male Date of : 1960 Age: 65 Procedure Date: 08/31/2025 Procedure Type: Transthoracic Echocardiogram Location: OP Height: 165.1 cm Weight: 66. kg BSA: 1.73 m2 Heart Rate: bpm BP: 110 / 68 mmHg Porter Baggage: TO Referring MD: Chris Weldon MD Symptoms: I42.8 - Other cardiomyopathies Study Quality: Adequate w contrast Conclusions: - The left ventricular systolic function is moderately decreased. The visually estimated ejection fraction is between 30-35%. - No obvious valvular pathology seen on this study. Findings Procedure Information Contrast agent, definity, is being given per protocol without apparent complications. Left Ventricle Normal left ventricular cavity size. There is normal left ventricular wall thickness. The left ventricular systolic function is moderately decreased. The visually estimated ejection fraction is between 30-35%. There is moderate global hypokinesis. Diastolic function is indeterminate on the basis of available data. Right Ventricle Mildly increased right ventricular cavity size. There is mildly decreased right ventricular systolic function. Atria Both atria are normal in size. Aortic Valve There is a normal trileaflet aortic valve. There is no aortic valve stenosis. There is no aortic valve regurgitation. Mitral Valve The mitral valve appears normal. There is trace mitral valve regurgitation. There is no mitral valve stenosis. Pulmonic Valve The pulmonic valve is likely normal. Tricuspid Valve There is trace tricuspid valve regurgitation. There is no evidence of pulmonary hypertension. Great Vessels The asc aorta is normal in size. Venous The inferior vena cava is normal in size and collapses greater than 50% with inspiration. Pericardium/Pleural There is no evidence of pericardial effusion. Prior Study Comparison No significant change compared to prior study dated: 01/27/2024. Recommendations, Care & Conclusions No obvious valvular pathology seen on this study. Measurements 2D Linear Measurements IVSd: 0.73 0.6-0.9/0.6-1.0 cm LVIDd: 4.53 3.9-5.3/4.2-5.9 cm LVIDd Index: 2.62 2.4-3.2/2.2-3.1 cm/m2 LVIDs: 3.40 2.0-3.6 cm LVPWd: 0.68 0.7-1.1 cm LA Diam: 2.70 2.7-3.8/3.0-4.0 cm LAIDs Index: 1.56 1.5-2.3 cm/m2 LV Mass: 120.63 67-162/88-224 g LV Mass Index: 69.73 43-95/49-115 g/m2 LVOT Diam: 2.10 3.0+(-)1.3 cm 2D Systolic Function EF 4C: 30.60 >55% EF 2C: 38.50 >55% EF BiP: 35.20 >55% Mitral Valve E'Lateral: 4.03 Aortic Valve AoV Pk Gurwinder: 1.02 AoV Mn Gurwinder: 0.72 AoV VTI: 0.16 AoV Pk Grad: 4.00 Aov Mn Grad: 2.00 KURT Cont.VTI: 2.55 LVOT LVOT Pk Gurwinder: 0.84 LVOT Mn Gurwinder: 0.52 LVOT VTI: 0.12 LVOT Pk Grad: 3.00 LVOT Mn Grad: 1.00 LVOT Diam: 2.10 LVOT Area: 3.46 Diastolic Function E' Laterial: 4.03 Right Ventricle TAPSE (mm): 16.60 TVS' Gurwinder: 10.10 Tricuspid Valve TR Pk Gurwinder: 1.68 TR Pk Grad: 11.00 RA Press: 3.00 RVSP: 14.00 Great Vessels Aorta Sinus of Valsalva: 2.76 2.0-3.5 cm Ao Asc: 3.10 2.1-3.4 cm Updated in Other Vendor System with Status of Final Chris Weldon MD electronically signed on 09/01/2025 1:36:45 PM with status of Final
--- NOTE | 2025-08-31 09:56 | HM_ITS ---
Conclusion: 1. Patient was monitored for total period of 2 days and 23 hours 2. Baseline was normal sinus rhythm with average heart rate of 107 beats per minute 3. No significant pauses noted 4. Frequent sinus tachycardia noted with 90% of the time heart rate about 100 beats per minute 5. 1 7 beat run of irregular wide complex which could represent nonsustained VT at 119 beats per minute 6. No patient reported events MTDD
--- OUTSIDE RECORDS SUMMARY | 2025-08-31 11:23 | XMS_ITS | Patient Health Record ---
Author Organization [facility] Address [address] [place] [address] Care Team Providers Care Digital Commentator Name Role Phone Martha (RETIRED) Thomas LARA Primary Care Provide r Unavailable Geoff Vera Unavailable [phone] Allergies No Known Allergies Reason For Referral [...] Problem Status W/U Status Risk Notes Problem Screening for malignant neoplasm of colon (923270812) Encounter for screening for malignant neoplasm of colon (Z12.11) Active confirmed Problem History of adenomatous polyp of colon (130177335) History of adenomatous polyp of colon (Z86.010) Active confirmed Problem Diverticular disease of colon (510455969) Diverticulosis of large intestine without perforation or abscess without bleeding (K57.30) Active confirmed Problem Chronic hepatitis C (273363948) Chronic hepatitis C (B18.2) Active confirmed Problem History of hepatitis C (34453511924058) History of hepatitis C (Z86.19) Active confirmed Problem Hepatic fibrosis (disorder) (24331589) Liver fibrosis (K74.00) Active confirmed Plan Of Treatment Pending Test Test Name Order Date BUN 01/14/2015 CREATININE 01/14/2015 LIVER PROFILE 07/16/2023 LIVER PROFILE 12/20/2020 LIVER PROFILE 04/03/2015 LIVER PROFILE 05/22/2022 LIVER PROFILE 11/29/2016 LIVER PROFILE 02/18/2015 LIVER PROFILE 01/14/2015 LIVER PROFILE 09/07/2015 CBC w DIFF 01/14/2015 CBC w DIFF 07/16/2023 CBC w DIFF 12/20/2020 CBC w DIFF 04/03/2015 CBC w DIFF 05/22/2022 CBC w DIFF 11/29/2016 CBC w DIFF 02/18/2015 PROTHROMBIN TIME (PT, INR) 01/14/2015 PROTHROMBIN TIME [...] GUIDE 01/24/2012 HCV LIVER FIBROSIS, FIBRO TEST 2 HCV LIVER FIBROSIS, FIBRO TEST 3 Hep C Viral Load 12/20/2020 US abdomen comp w elastography 3 Future Test Test Name Order Date COLONOSCOPY 04/25/2012 COLONOSCOPY 09/26/2022 Insurance Providers Payer Name Payer Address Payer Phone Subscriber Number Group Number Insured Name Patient Relationship to Insured Coverage Start Date Coverage End Date [facility] Medicare Advantage Plan [address] [address] [place] [address] [id number] SAVANNAH BROWN Self - patient is the [...]
== END ==
LOC: HO.CARD 09:53
PROVIDERS: Visit Provider Internal Medicine
DX: R00.2 Palpitations (principal); I47.10 Supraventricular tachycardia, unspecified; I42.8 Other cardiomyopathies
CPT/HCPCS: 93242; 93306; Q9957

== ENCOUNTER → 2025-08-31 09:56 | Outpatient (BNV) | payer MEDICARE, SELFPAY | PROVIDERS: Visit Provider Internal Medicine | DX: I42.8 Other cardiomyopathies (principal) | CPT/HCPCS: 93306 ==